=== PATIENT | female | born 1935 | race Caucasian/White ===

== ENCOUNTER 2016-10-20 07:52 | Observation (INO) ==
[2016-10-20] MEDS ORDERED: Ketorolac 30 MG/ML VIAL IM ONE (08:31)
--- NOTE | 2016-10-20 08:40 | Emergency Department Note ---
Disposition Clinical Impression: Unable to ambulate Ankle fracture Qualifiers: Encounter type: initial encounter Fracture type: closed Laterality: left Qualified Code(s): S82.892A - Other fracture of left lower leg, initial encounter for closed fracture Disposition: Admitted As Inpatient Condition: Good Referrals: NO,PCP [Primary Care Provider] - Forms: ED Satisfaction Letter Time of Disposition: 10:36 Lower Extremity Injury HPI - General Chief Complaint: ED Extremity Injury, Lower Stated Complaint: Fall left leg pain Time Seen by Provider: 10/20/16 08:22 Source: patient, family Mode of arrival: private vehicle Limitations: no limitations Nursing Notes Reviewed: Yes Vital Signs Reviewed: Yes - History of Present Illness Pt Subjective Complaint: hip injury, ankle injury Injury location: Left hip, Left ankle Onset (ago): Just [employer] Mechanism of Injury: fall Context: fall (Patient states that for several months she has been having trouble with weakness. Today she got out of bed to go to the bathroom and was feeling weak and wet now. She states that she felt like her ankle snapped when she went down. Since that time she has been unable to put weight on it.) Place: home Pain Severity: severe Improves with: immobilization Worsens with: weight bearing, movement, palpation Associated symptoms: Reports: unable to bear weight, snap/pop sensation - Related Data Home Medications Medication Instructions Recorded Confirmed Amlodipine [Norvasc] 10 mg PO DAILY 12/13/14 04/23/16 Atorvastatin [Lipitor] 40 mg PO DAILY 12/13/14 04/23/16 Citalopram Hydrobromide [Celexa] 20 mg PO DAILY 12/13/14 04/23/16 Glimepiride [Amaryl] 2 mg PO BID 12/13/14 04/23/16 Aspirin/Dipyridamole [Aggrenox 25 1 cap PO BID 04/23/16 04/23/16 mg-200 mg Capsule] Carvedilol [Coreg] 25 mg PO BID 04/23/16 04/23/16 Potassium Chloride [Klor-Con 10 meq PO BID 04/23/16 04/23/16 Sprinkle] Quetiapine Fumarate [Seroquel] 25 mg PO HS 04/23/16 04/23/16 Sertraline [Zoloft] 50 mg PO DAILY 04/23/16 04/23/16 Previous Rx's Medication Instructions Recorded OxyCODONE Immed Rel [Roxicodone 5 5 mg PO Q6HR PRN #20 tablet 04/26/16 MG] Allergies Allergy/AdvReac Type Severity Reaction Status Date / Time codeine Allergy Rash Verified 02/24/15 06:48 Penicillins Allergy Rash Verified 02/24/15 06:48 propoxyphene AdvReac Rash Verified 02/24/15 06:48 All systems ED: reviewed and negative except as stated. Cardiovascular: Denies: chest pain, palpitations Respiratory: Denies: cough, dyspnea Gastrointestinal: Denies: abdominal pain Musculoskeletal: Denies: back pain, neck pain Neurological: Denies: headache, numbness, paresthesias Hematological/Lymphatic: Denies: easy bleeding Past Medical History - Past Medical History Attestation: Yes The following information was validated with the patient. Source: patient, obtained from family, nursing notes reviewed Medical history: Reports: cancer, GERD, hyperlipidemia, hypertension Psychiatric history: Reports: anxiety, depression - Social History Smoking Status: Never smoker Smokeless Tobacco Status: No Alcohol use: Reports: none Drug use: Reports: none Physical Exam - General Limitations: no limitations General appearance: alert, in no apparent distress - Head Head exam: atraumatic, normocephalic, normal inspection - Eye Eye exam: Present: normal appearance, PERRL, EOMI. Absent: scleral icterus, conjunctival injection - ENT ENT exam: normal exam, normal oropharynx, normal external ear exam - Neck Neck exam: Present: normal inspection, full ROM. Absent: tenderness - Chest Chest inspection: Present: normal inspection, symmetric chest wall rise. Absent : tenderness - Respiratory Respiratory exam: Present: normal lung sounds bilaterally. Absent: respiratory distress, wheezes - Cardiovascular Cardiovascular exam: Present: regular rate, normal rhythm, normal heart sounds - Abdominal Exam Abdominal exam: Present: soft, Non-Tender, normal bowel sounds - Extremities Exam Extremities exam: Present: other (Patient complains of mild tenderness to palpation over the greater trochanter of her left hip. There is minimal discomfort on passive range of motion of that hip. There is minimal discomfort on axial loading of the hip. The thigh is nontender. The left knee is nontender. The left leg is nontender. There is no visible abnormalities to any of these areas. Left ankle shows evidence of swelling, particularly laterally. She has tenderness to palpation over the lateral malleolus. No tenderness to the proximal fibula. No foot tenderness. Distal neurologic and vascular examination to the toes and foot are normal. There is no other tenderness on examination of any of the other extremities.) - Back Exam Back exam: Present: full ROM. Absent: tenderness - Neurological Exam Neurological exam: Present: alert, oriented X3. Absent: motor sensory deficit - Psychiatric Psychiatric exam: Present: normal affect, normal mood - Skin Skin exam: Present: warm, dry, intact Course Course Narrative: Patient presents with a mechanical fall at home. She has some chronic worsening weakness at home which I think is consistent with her age and underlying medical conditions. She probably needs to be using a walker on a regular basis. At this time we need to determine if she has an extremity fracture. I see no indication of other injury or indication for further workup other than x-rays of this extremity. I will shoot pictures of her ankle and her hip. She was given pain medications. Disposition will be based on diagnostic result in reevaluation. - Reevaluation(s) Reevaluation #1: X-ray shows a normal hip but there is a fracture of the distal fibula. It is nondisplaced. We will put her in a posterior splint. We will get a walker and see if the patient is able to ambulate with a walker. If she is not able to do so safely, will need to send her to short-term rehabilitation. Time: 09:50 Reevaluation #2: Posterior splint is in place. Neurologic and vascular examination are fine postplacement. The splint is in good position. Try to give the patient out of bed and up with the walker but she does not have the strength to work the walker and keep one leg up. She is also still having a lot of pain. I spoke with a social media manager to try to get patient directly bedded into a rehabilitation facility but that cannot take place today. Therefore we will have to admit the patient to the hospitalist. I have called the hospitalist and discussed case with him and he has accepted the patient. Time: 10:35 - Consultations Consultation #1: Dr. Farrar, hospitalist - I discussed the case with the hospitalist. Patient is unable to use a walker and ambulate with her broken ankle. financial services specialist is not going to be a we get the patient placed to a rehabilitation facility today. Patient is to be admitted to the hospital. He has accepted her for admission and will get the appropriate physical therapy and occupational therapy consults that are needed to get the patient placed. Time: 10:34 Vital Signs Temperature 98.7 F 10/20/16 07:54 Pulse Rate 86 10/20/16 07:54 Respiratory Rate 18 10/20/16 07:54 Blood Pressure 184/82 10/20/16 07:54 O2 Sat by Pulse Oximetry 98 10/20/16 07:54 Temperature 98.7 F 10/20/16 07:54 Pulse Rate 86 10/20/16 07:54 Respiratory Rate 18 10/20/16 07:54 Blood Pressure 184/82 10/20/16 07:54 O2 Sat by Pulse Oximetry 98 10/20/16 07:54 Oxygen Delivery Oxygen Delivery Room Air Extremity Injury, Lower - Radiology Data Radiology results reviewed: Yes I reviewed the patient's radiology results.
[2016-10-20] MEDS ORDERED: Ondansetron ODT 4 MG TAB.RAPDIS SL ONE (10:56)
[2016-10-20] MEDS ORDERED: *HR* OxyCODONE/APAP 5/325 TABLET PO ONE (10:56)
[2016-10-20] MEDS ORDERED: Naloxone 0.4 MG/ML INJ IVP PRN (11:48)
[2016-10-20] MEDS ORDERED: *HR* Morphine 2 MG/ML SYRINGE IVP PRN (11:48)
[2016-10-20] MEDS ORDERED: Ondansetron 4 MG/2 ML VIAL IVP PRN (11:48)
[2016-10-20 12:25] LABS: INR 1.1; Prothrombin Time 11.5 Seconds (9.4-12.1)
[2016-10-20 12:38] LABS: Basophils % 0.3 %; Eosinophils % 0.1 %; Hematocrit 36.1 % (35.3-44.9); Hemoglobin 11.9 g/dL (11.5-15.4); Immature Granulocytes % 0.6 % (0-4); Lymphocytes # 0.7 K/mcL (0.6-4.6); Lymphocytes % 6.2 %; Mean Platelet Volume 9.4 fL (9.4-12.4); Monocytes # 0.5 K/mcL (0.0-1.3); Neutrophils # 9.5 K/mcL (1.6-8.9); Platelet Count 235 K/mcL (140-400); Red Cell Distribution Width 12.7 % (11.5-14.5); Segmented Neutrophils % 87.8 %
[2016-10-20 12:48] LABS: Calcium 9.8 mg/dL (8.6-10.8); Chol/HDL Ratio 4.3 (0-4.9); Magnesium 1.9 mg/dL (1.6-2.6); Potassium 4.2 mEq/L (3.5-4.5)
--- NOTE | 2016-10-20 12:51 | Internal Med History&Physical ---
<Cesar Solis - Last Filed: 10/20/16 13:20> Date of Encounter: 10/20/16 Time of Encounter: 12:10 Assessment and Plan (1) Closed left ankle fracture Current visit: Yes Status: Acute Patient presents with closed left ankle fracture from fall today. Patient states she was getting up to go to the bathroom and fell due to weakness. CT of the left ankle shows acute traumatic nondisplaced closed obliquely oriented fracture to the distal fibula extending to the region of the distal syndesmosis with associated soft tissue swelling and diffuse bone demineralization. Posterior splint placed. Social work consult ordered for placement of patient in rehabilitation facility. PT/OT consults ordered to assess patient for ambulation and home activities needs. Qualifiers: Encounter type: initial encounter Qualified Code(s): S82.892A - Other fracture of left lower leg, initial encounter for closed fracture (2) Acute pain of left hip Current visit: Yes Status: Acute Patient presents with acute pain of left hip related to fall this morning. CT of the left shows no acute fracture or dislocation. Will administer stair-step pain medication PRN. (3) Unable to ambulate Current visit: Yes Status: Acute Patient presents with inability to ambulate independently or bear weight on her left ankle due to fracture. Patient to be placed on falls precautions/up with assist/bed rest with bedside commode with assist only due to pain, weakness, and inability to bear weight. (4) Nausea Current visit: Yes Status: Acute Patient presents with acute nausea related to pain and fall today. She states she has been nauseous but denies urge to vomit. IV Zofran when necessary ordered. (5) Acute renal failure Current visit: Yes Status: Acute Patient presents with acute renal failure with current GFR of 33. Patient's GFR in August 2016 was 44 and in April 2016 >60. Will monitor I&O and daily weight, and use IV fluids judiciously. Follow-up labs ordered. Qualifiers: Acute renal failure type: unspecified Qualified Code(s): N17.9 - Acute kidney failure, unspecified (6) HTN (hypertension) Current visit: Yes Status: Chronic Patient presents with history of chronic hypertension. Will continue patient's losartan, Norvasc, and spironolactone. Monitor patient and vital signs. Qualifiers: Hypertension type: essential hypertension Qualified Code(s): I10 - Essential (primary) hypertension (7) HLD (hyperlipidemia) Current visit: Yes Status: Chronic Patient presents with history of chronic hyperlipidemia. Ordered lipid panel shows patient's triglycerides are 156, cholesterol is 179, LDL cholesterol is 106, VLDL cholesterol is 31, and HDL is 42. Will continue patient's Lipitor. Qualifiers: Hyperlipidemia type: pure hypercholesterolemia Qualified Code(s): E78.00 - Pure hypercholesterolemia, unspecified; E78.0 - Pure hypercholesterolemia (8) GERD (gastroesophageal reflux disease) Current visit: Yes Status: Chronic Patient presents with history of chronic GERD. Will administer IV Protonix 40 mg daily. IV Zofran ordered PRN for nausea. Qualifiers: Esophagitis presence: esophagitis presence not specified Qualified Code(s) : K21.9 - Gastro-esophageal reflux disease without esophagitis (9) DVT prophylaxis Current visit: Yes Status: Acute Patient to be placed on DVT prophylaxis due to admission protocol and current bed rest status. Heparin 5,000 units Q12 ordered. Internal Medicine - H&P: HPI Chief complaint: Hip/ankle injury from fall at home Admitted From: Emergency Dept Plans for Post Hospital Care: Home History of present illness: Mrs. Villalobos is a 81 year old female who presents from the ED with chief complaint of injury to her left hip and left ankle when she fell this morning while trying to ambulate to the bathroom. She states that she became weak and fell. She reports that she thought her ankle "snapped" when she fell. She is currently unable to bear weight on her ankle. She states that she is nauseous from the pain, but does not feel as though she will vomit. She also reports pain in the hip when it is palpated during examination. She reports no pain in her thigh or knee. She denies blacking out during the episode but is unsure of the event and how it all happened. She also denies hitting her head. Patient is currently alert and oriented x3 and her neuro examination is normal. She has equal strength in her UEs bilaterally. She states that she has some difficulty managing her walker at home. CT of the left hip shows no acute fracture. CT of the left ankle shows acute traumatic nondisplaced closed obliquely oriented fracture to the distal fibula extending to the region of the distal syndesmosis with associated soft tissue swelling and diffuse bone demineralization. Mrs. Villalobos is to be admitted as inpatient with orders for social work consult for rehabilitation placement patient, PT and OT consults to assess current ambulation and ability to function independently. Posterior splint placed. Patient is unable to place weight on her lower extremity so she will be placed as falls precautions/up with assist/bedrest with bedside commode with assist only due to continued weakness and inability to bear weight. Patient's home medications to be continued and pain medications will be administered PRN. Time spent with patient 30 minutes. Past Med Surg Social Fam HX - Past Medical History Source: patient Medical history: cancer (Lumpectomy on right breast d/t breast cancer. 18 lymph nodes removed.), GERD, hyperlipidemia, hypertension Psychiatric history: anxiety, depression - Past Surgical History Surgical History: orthopedic, other (Back surgery in April 2016), other ( Tonsillectomy, Lumpectomy on right breast) - Social History Smoking Status: Never smoker Smokeless Tobacco Status: No Alcohol use: none Drug use: none Current living situation: Home - Independent Activity Level: Independent ambulation, Uses cane/walker Recent Out of Country Travel Within the Last 8 Weeks: No Exposure or Possible Exposure to Illness During Travel: No - Family History Father Race: Family Member Ethnicity: Non- Living Status: Age at : 83 Cause of : PR Hx Family Cardiac Disorders: Yes (PR, HD) Hx Family Endocrine Disorder: Yes (DM) Mother Race: Family Member Ethnicity: Non- Living Status: Age at : 66 Cause of : Complications from DM Hx Family Endocrine Disorder: Yes (DM) Sister Race: Family Member Ethnicity: Non- Living Status: Still Living Hx Family Endocrine Disorder: Yes (DM) Internal Medicine - H&P: Meds Amlodipine [Norvasc] 10 mg PO DAILY 12/13/14 [History] Atorvastatin [Lipitor] 40 mg PO DAILY 12/13/14 [History] Citalopram Hydrobromide [Celexa] 20 mg PO DAILY 12/13/14 [History] Aspirin/Dipyridamole [Aggrenox 25 mg-200 mg Capsule] 1 cap PO BID 04/23/16 [ History] Carvedilol [Coreg] 25 mg PO BID 04/23/16 [History] Potassium Chloride [Klor-Con Sprinkle] 10 meq PO BID 04/23/16 [History] Quetiapine Fumarate [Seroquel] 25 mg PO HS 04/23/16 [History] Sertraline [Zoloft] 50 mg PO DAILY 04/23/16 [History] Ferrous Gluconate 324 mg PO DAILY 10/20/16 [History] Furosemide [Lasix] 20 mg PO BID 10/20/16 [History] Losartan Potassium [Cozaar] 50 mg PO DAILY 10/20/16 [History] Memantine HCl 10 mg PO DAILY 10/20/16 [History] Spironolactone [Aldactone] 25 mg PO BID 10/20/16 [History] clonazePAM [Klonopin] 1 mg PO HS 10/20/16 [History] Allergies codeine Allergy (Verified 02/24/15 06:48) Rash Penicillins Allergy (Verified 02/24/15 06:48) Rash propoxyphene Allergy (Verified 10/20/16 10:39) Rash All Systems PM: A 10-system review of systems was performed and is negative for pertinent findings except as documented above in the HPI. - Constitutional Constitutional: as per HPI, falls, weakness, no chills, no fever(s), no night sweats - EENT Eyes: no change in vision, no discharge, no pain, no photophobia Ears: no ear discharge, no ear pain, no tinnitus Nose, mouth and throat: no dysphagia, no nasal discharge, no neck pain, no sore throat - Breasts Breasts: as per HPI - Cardiovascular Cardiovascular ROS IM: no chest pain, no diaphoresis, no dyspnea, no lightheadedness, no palpitations, no syncope - Respiratory Respiratory: no cough, no dyspnea, no wheezing, no excessive phlegm production - Gastrointestinal Gastrointestinal: as per HPI, nausea, no abdominal pain, no diarrhea, no hematemesis, no hematochezia, no melena, no vomiting - Genitourinary Genitourinary: no change in urinary stream, no dysuria, no flank pain, no hematuria Menstruation: as per HPI, post menopausal - Musculoskeletal Musculoskeletal ROS IM: no numbness, no tingling - Integumentary Integumentary IM: no rash, no unusual bruising - Neurological Neurological ROS: as per HPI, frequent falls, weakness, no confusion, no convulsions, no focal weakness, no numbness, no tingling, no tremor(s) - Psychiatric Psychiatric: as per HPI - Endocrine Endocrine IM: as per HPI - Hematologic/Lymphatic Hematologic/Lymphatic: no easy bruising - Allergic/Immunologic Allergic/Immunologic: as per HPI - Constitutional Vitals: Temp Pulse Resp BP Pulse Ox 98.0 F 75 16 184/69 95 10/20/16 11:33 10/20/16 11:33 10/20/16 11:33 10/20/16 11:33 10/20/16 11:33 General appearance: Present: cooperative, A&O X 3, pleasant, no acute distress, answers questions appropriately - Head Head exam: Present: atraumatic, normocephalic - Eye Eye exam: Present: PERRL, conjuntiva pink, sclera anicteric Pupils: Present: PERRL - ENT ENT exam: Present: normal exam, normal external ear exam - Neck Neck exam general surgery: Present: normal inspection, supple, trachea midline. Absent: lymphadenopathy - Respiratory Respiratory exam: Present: CTAB. Absent: accessory muscle use, rales, rhonchi, wheezes - Cardiovascular Cardiovascular exam: Present: RRR, +S1, +S2. Absent: diastolic murmur, gallop, rubs, systolic murmur - GI/Abdominal GI/Abdominal exam: Present: normal bowel sounds, soft, no peritoneal signs. Absent: distended, tenderness - Rectal Rectal exam: Present: deferred - Additional comments: exam deferred. - Extremities Exam Extremities exam: Present: tenderness (Left ankle), warm, radial pulses palpable and symetrical. Absent: calf tenderness, cyanotic, pedal edema - Back Exam Back exam: Present: normal inspection - Neurological Exam Neurological exam: Present: CN II-XII intact, oriented X3, no focal deficits. Absent: pronater drift, facial droop, speech deficit - Psychiatric Psychiatric exam: Present: normal affect, normal mood - Skin Skin exam: Present: dry, intact Internal Med - H&P Results - Labs CBC & Chem 7: 10/20/16 12:08 10/20/16 12:08 - Diagnostic Studies Other Images Additional comments: Impressions Ankle X-Ray 10/20/16 08:31 IMPRESSION: Acute traumatic nondisplaced closed obliquely oriented fracture to the distal fibula extending to the region of the distal syndesmosis. Associated soft tissue swelling. Diffuse bone demineralization. D/ / 10/20/2016 08:54:08 Rene Arteaga MD / arpan Interpreting Provider: Rene Arteaga MD Hip X-Ray 10/20/16 08:31 IMPRESSION: No acute fracture. D/ / Tej Maria MD / Tej Maria MD Interpreting Provider: Tej Maria MD <Juan Myers - Last Filed: 10/20/16 14:20> Date of Encounter: 10/20/16 Internal Medicine - H&P: HPI History of present illness: Ms. Villalobos is a 81 year old female All Systems PM: A 10-system review of systems was performed and is negative for pertinent findings except as documented above in the HPI. - Constitutional Vitals: Temp Pulse Resp BP Pulse Ox 98.0 F 75 16 184/69 95 10/20/16 11:33 10/20/16 11:33 10/20/16 11:33 10/20/16 11:33 10/20/16 11:33 Internal Med - H&P Results - Labs CBC & Chem 7: 10/20/16 12:08 10/20/16 12:08 Labs: Short CBC 10/20/16 Range/Units 12:08 WBC 10.8 (4.3-11.1) K/mcL Hgb 11.9 (11.5-15.4) g/dL Hct 36.1 (35.3-44.9) % Plt Count 235 (140-400) K/mcL Neutrophils # 9.5 H (1.6-8.9) K/mcL BMP 10/20/16 12:08 Sodium 135 L Potassium 4.2 Chloride 109 Carbon Dioxide 20 BUN 26 H Creatinine 1.51 H Glucose 181 H Calcium 9.8 - Attending Attestation I have seen and examined the patient at around 13:30. I have discussed about the patient with Cesar Solis NP. I have reviewed the orders and note. Patient is a 81-year-old female with past history of hypertension, hyperlipidemia, anxiety, GERD and depression. She presents to the ED today after having sustained a fall. Patient has been having trouble with generalized weakness over the past few months, and it has been worsening gradually. This morning patient states she got her bed to go to the bathroom and had a mechanical fall. Brought to ED by family. Patient was complaining of left hip pain and left ankle pain. Initial evaluation revealed fracture of the left distal fibula. Rates the pain 7 out of 10. Worse with weightbearing, and patient is unable to put any weight on the left leg. No alleviating factors. Posterior splint of the left lower extremity has been applied in the ED. Patient will need physical therapy and at least short-term rehabilitation stay. Patient being admitted for generalized weakness, fall and left fibular fracture. On examination patient is awake and alert. Not in any distress. She is able to provide history. No family members at bedside. No other acute complaints. Heart rate 75, blood pressure 184/69, O2 94% on room air. Heart S1-S2 positive no murmurs or rubs, lungs bilateral good air entry no wheeze or crackle, abdomen soft nontender no masses or guarding. Extremities all pulses strong and regular left lower extremity in splint.
[2016-10-20] MEDS: 0.9 % Sodium Chloride 1,000 ML IVC SCH (13:18)
[2016-10-20] MEDS: Acetaminophen 325 MG TABLET PO PRN (16:57)
[2016-10-20] MEDS: *HR* Heparin 5,000 UNIT/ML VIAL SQ SCH (16:58)
[2016-10-20] MEDS ORDERED: D5% in Water 1,000 ML IVC PRN (17:42)
[2016-10-20] MEDS ORDERED: *HR* Dextrose 50 % in Water (Syg) 50 ML SYRINGE IVP PRN (17:42)
[2016-10-20] MEDS ORDERED: Dextrose Gel 15 GM PO PRN ×2 (17:42)
[2016-10-20] MEDS: traMADol 50 MG TABLET PO PRN (17:47)
[2016-10-20] MEDS: Insulin LISPRO 300 UNITS/3 ML VIAL SQ SCH ×2 (17:55→21:26)
[2016-10-20] MEDS ORDERED: Famotidine 20 MG TABLET PO SCH (21:00)
[2016-10-20] MEDS: Furosemide 20 MG TABLET PO SCH (21:18)
[2016-10-20] MEDS: Spironolactone 25 MG TABLET PO SCH (21:18)
[2016-10-20 23:34] LABS: Bilirubin,Urine Negative (Negative); Blood,Urine Negative (Negative); Clarity,Urine Clear (Clear); Color,Urine Yellow (Yellow); Glucose,Urine (UA) 250 mg/dL (Normal); Ketones,Urine Negative (Negative); Leukocyte Esterase,Urine Negative (Negative); Nitrite,Urine Negative (Negative); PH,Urine 5.5 pH Units (5.0-8.0); Protein,Urine >=300 mg/dL (Neg-Trace); Specific Gravity,Urine 1.024 (1.010-1.025); Urobilinogen,Urine Normal (Normal)
[2016-10-20 23:36] LABS: Bacteria,Urine None Seen per hpf (None-Few); Hyaline Casts,Urine None Seen per lpf (None-Few); RBC,Urine 0-3 per hpf (0-3); Squamous Epithelial Cell,Urine Many per lpf (None-Few)
[2016-10-21 04:28] LABS: Basophils % 0.2 %; Eosinophils % 0.2 %; Hematocrit 35.2 % (35.3-44.9); Hemoglobin 11.3 g/dL (11.5-15.4); Immature Granulocytes % 0.7 % (0-4); Lymphocytes # 0.5 K/mcL (0.6-4.6); Lymphocytes % 7.8 %; Mean Corpuscular HGB Conc 32.1 g/dL (31.6-35.5); Mean Corpuscular Hemoglobin 28.9 pg (28.0-33.3); Mean Platelet Volume 9.7 fL (9.4-12.4); Monocytes # 0.4 K/mcL (0.0-1.3); Monocytes % 5.9 %; Neutrophils # 5.2 K/mcL (1.6-8.9); Platelet Count 197 K/mcL (140-400); Red Blood Count 3.91 M/mcL (3.82-4.97); Red Cell Distribution Width 12.7 % (11.5-14.5); Segmented Neutrophils % 85.2 %
[2016-10-21 04:33] LABS: Prothrombin Time 10.7 Seconds (9.4-12.1)
[2016-10-21 04:36] LABS: Activated Partial Thrombo Time 29.2 Seconds (26.0-36.0)
[2016-10-21 04:43] LABS: Calcium 9.4 mg/dL (8.6-10.8); Potassium 4.2 mEq/L (3.5-4.5)
[2016-10-21] MEDS: *HR* Heparin 5,000 UNIT/ML VIAL SQ SCH ×2 (05:46→16:53)
[2016-10-21] MEDS: traMADol 50 MG TABLET PO PRN (06:37)
[2016-10-21] MEDS: Furosemide 20 MG TABLET PO SCH (08:07)
[2016-10-21] MEDS: Spironolactone 25 MG TABLET PO SCH (08:07)
[2016-10-21] MEDS: Pantoprazole 40 MG VIAL IVP SCH (08:08)
[2016-10-21] MEDS: amLODIPine 5 MG TABLET PO SCH (08:08)
[2016-10-21] MEDS: Insulin LISPRO 300 UNITS/3 ML VIAL SQ SCH ×4 (08:09→21:23)
[2016-10-21] MEDS: 0.9 % Sodium Chloride 1,000 ML IVC SCH (08:10)
--- NOTE | 2016-10-21 13:40 | Internal Med Progress Note ---
Date of Encounter: 10/21/16 Time of Encounter: 07:45 - Assessment and plan (1) Closed left ankle fracture Current Visit: Yes Status: Acute Assessment and plan: Reduced and in brace. Continue management with pain control, supportive care. Physical therapy. Awaiting placement to skilled rehabilitation as patient has decreased ambulatory capacity. Moderate risk for complications. Qualifiers: Encounter type: initial encounter Qualified Code(s): S82.892A - Other fracture of left lower leg, initial encounter for closed fracture (2) Acute pain of left hip Current Visit: Yes Status: Acute Assessment and plan: Improving. Continue pain control and physical therapy. (3) Acute renal failure Current Visit: Yes Status: Acute Assessment and plan: Renal function worsened since April. Could be related to her diabetes. Stable compared to yesterday. Hold Lasix and Aldactone for now. Patient may have chronic kidney disease stage II. Will get renal ultrasound and also check PTH. Monitor renal function closely. Qualifiers: Acute renal failure type: unspecified Qualified Code(s): N17.9 - Acute kidney failure, unspecified (4) DVT prophylaxis Current Visit: Yes Status: Acute (5) GERD (gastroesophageal reflux disease) Current Visit: Yes Status: Chronic Assessment and plan: Treating with pantoprazole. We will change to omeprazole by mouth. Qualifiers: Esophagitis presence: esophagitis presence not specified Qualified Code(s) : K21.9 - Gastro-esophageal reflux disease without esophagitis (6) HLD (hyperlipidemia) Current Visit: Yes Status: Chronic Assessment and plan: Continue atorvastatin Qualifiers: Hyperlipidemia type: mixed hyperlipidemia Qualified Code(s): E78.2 - Mixed hyperlipidemia (7) HTN (hypertension) Current Visit: Yes Status: Chronic Assessment and plan: Uncontrolled. We will add hydralazine intravenously as needed for SBP greater than 160. Currently on carvedilol 25 twice daily and losartan. We will also add hydralazine orally for long-term use. Qualifiers: Hypertension type: essential hypertension Qualified Code(s): I10 - Essential (primary) hypertension - Subjective Interval history: Patient complains of pain in her left leg at site of fracture. Somewhat controlled with tramadol but requesting something stronger. Denies any shortness of breath or palpitations. No fever or chills reported overnight. - Constitutional Vitals: Temp Pulse Resp BP Pulse Ox 97.6 F 66 15 192/54 94 07/09/17 12:29 10/21/16 12:29 10/21/16 12:29 10/21/16 12:29 10/21/16 12:29 General appearance: Present: cooperative, A&O X 3, pleasant, no acute distress, answers questions appropriately - Neck Neck exam general surgery: Present: supple, trachea midline. Absent: lymphadenopathy - Respiratory Respiratory exam: Present: CTAB. Absent: accessory muscle use, rales, rhonchi, wheezes - Cardiovascular Cardiovascular exam: Present: RRR, +S1, +S2. Absent: diastolic murmur, gallop, rubs, systolic murmur - Extremities Exam Extremities exam: Present: warm, radial pulses palpable and symetrical. Absent : calf tenderness, cyanotic, pedal edema Additional comments: Left leg currently in brace. Has good movement at her fingers. Internal Medicine: Result - Labs CBC & Chem 7: 10/21/16 04:02 10/21/16 04:02 Labs: Short CBC 10/21/16 Range/Units 04:02 WBC 6.1 (4.3-11.1) K/mcL Hgb 11.3 L (11.5-15.4) g/dL Hct 35.2 L (35.3-44.9) % Plt Count 197 (140-400) K/mcL Neutrophils # 5.2 (1.6-8.9) K/mcL BMP 10/21/16 04:02 Sodium 135 L Potassium 4.2 Chloride 109 Carbon Dioxide 20 BUN 22 H Creatinine 1.41 H Glucose 203 H Calcium 9.4 Urine 10/20/16 Range/Units 23:20 Urine Color Yellow (Yellow) Urine Clarity Clear (Clear) Urine pH 5.5 (5.0-8.0) pH Units Ur Specific [place] 1.024 (1.010-1.025) Urine Protein >=300 H (Neg-Trace) mg/dL Urine Glucose (UA) 250 H (Normal) mg/dL - ABG Interpretation ABG results: PT/INR, D-dimer PT 10.7 Seconds (9.4-12.1) 10/21/16 04:02 - Impressions Impressions Chest X-Ray 10/20/16 11:54 IMPRESSION: No acute abnormalities. Large hiatal hernia. D/ / 10/20/2016 14:48:42 Rene Arteaga MD / arpan Interpreting Provider: Rene Arteaga MD Consult Discharge Plan - Plan Referrals: Braden Cintron MD [Primary Care Provider] -
--- NOTE | 2016-10-21 14:29 | Physician Discharge Referral ---
ExtendedCare Referral Info Institutional Level of Care: Skilled - Diagnosis (1) Closed left ankle fracture Priority: Primary Status: Acute (2) Acute pain of left hip Priority: Secondary Status: Acute (3) Acute renal failure Priority: Secondary Status: Acute (4) DVT prophylaxis Priority: Secondary Status: Acute (5) GERD (gastroesophageal reflux disease) Priority: Secondary Status: Chronic (6) HLD (hyperlipidemia) Priority: Secondary Status: Chronic (7) HTN (hypertension) Priority: Secondary Status: Chronic Prognosis: Fair Aware of Diagnosis: Patient Aware of Prognosis: Patient - Transfer Medications Home Medications: Amlodipine [Norvasc] 10 mg PO DAILY 12/13/14 [History] Atorvastatin [Lipitor] 40 mg PO DAILY 12/13/14 [History] Citalopram Hydrobromide [Celexa] 20 mg PO DAILY 12/13/14 [History] Aspirin/Dipyridamole [Aggrenox 25 mg-200 mg Capsule] 1 cap PO BID 04/23/16 [ History] Carvedilol [Coreg] 25 mg PO BID 04/23/16 [History] Potassium Chloride [Klor-Con Sprinkle] 10 meq PO BID 04/23/16 [History] Quetiapine Fumarate [Seroquel] 25 mg PO HS 04/23/16 [History] Sertraline [Zoloft] 50 mg PO DAILY 04/23/16 [History] Ferrous Gluconate 324 mg PO DAILY 10/20/16 [History] Furosemide [Lasix] 20 mg PO BID 10/20/16 [History] Losartan Potassium [Cozaar] 50 mg PO DAILY 10/20/16 [History] Memantine HCl 10 mg PO DAILY 10/20/16 [History] Spironolactone [Aldactone] 25 mg PO BID 10/20/16 [History] clonazePAM [Klonopin] 1 mg PO HS 10/20/16 [History] Allergies/Adverse Reactions: Allergies codeine Allergy (Verified 02/24/15 06:48) Rash Penicillins Allergy (Verified 02/24/15 06:48) Rash propoxyphene Allergy (Verified 10/20/16 10:39) Rash - Respiratory Orders Smoking Cessation: Smoking cessation has been advised. For more information, call the [employer] Tobacco Quit Line at 9-990-QPGL-NOW. - Advance Directives Code Status: Full Code - Mobility Orders Other (per PT) - Rehabiliation Orders Rehab Potential: Fair Rehab Orders: Evaluation for Physical Therapy, Evaluation for Occupational Therapy CERTIFICATION: I certify that the transfer of the above named patient to an Extended Care Facility is necessary for the continuing treatment of the diagnosis listed. The above information is true and accurate reflection of patient's current condition. Confidential - Redisclosure prohibited without a patient's written consent.
[2016-10-21] MEDS: *HR* OxyCODONE/APAP 5/325 TABLET PO PRN (15:43)
[2016-10-22] MEDS ORDERED: *HR* Labetalol 20 MG/4 ML SYRINGE IVP ONE (00:20)
[2016-10-22 04:01] LABS: Basophils % 0.2 %; Eosinophils % 0.2 %; Hematocrit 31.4 % (35.3-44.9); Hemoglobin 10.2 g/dL (11.5-15.4); Immature Granulocytes % 1.3 % (0-4); Lymphocytes # 0.7 K/mcL (0.6-4.6); Lymphocytes % 12.9 %; Mean Corpuscular HGB Conc 32.5 g/dL (31.6-35.5); Mean Corpuscular Hemoglobin 29.3 pg (28.0-33.3); Mean Corpuscular Volume 90.2 fL (83.0-100.0); Mean Platelet Volume 9.8 fL (9.4-12.4); Monocytes # 0.3 K/mcL (0.0-1.3); Monocytes % 6.4 %; Neutrophils # 4.2 K/mcL (1.6-8.9); Platelet Count 197 K/mcL (140-400); Red Blood Count 3.48 M/mcL (3.82-4.97); Red Cell Distribution Width 13.2 % (11.5-14.5)
[2016-10-22 04:15] LABS: Calcium 9.1 mg/dL (8.6-10.8); Potassium 4.3 mEq/L (3.5-4.5)
[2016-10-22] MEDS: amLODIPine 5 MG TABLET PO SCH (05:06)
[2016-10-22] MEDS: *HR* Heparin 5,000 UNIT/ML VIAL SQ SCH ×2 (05:06→17:49)
[2016-10-22] MEDS: 0.9 % Sodium Chloride 1,000 ML IVC SCH ×3 (05:08→20:58)
[2016-10-22] MEDS ORDERED: *HR* Labetalol 20 MG/4 ML SYRINGE IVP PRN (07:37)
[2016-10-22] MEDS: Acetaminophen 325 MG TABLET PO PRN (08:09)
[2016-10-22] MEDS: Pantoprazole 40 MG VIAL IVP SCH (08:10)
[2016-10-22] MEDS: hydrALAZINE 25 MG TABLET PO SCH ×3 (08:13→17:49)
[2016-10-22] MEDS: Insulin LISPRO 300 UNITS/3 ML VIAL SQ SCH ×4 (08:24→20:54)
--- NOTE | 2016-10-22 12:04 | Electrocardiograph Report ---
[place] [id number] Test Date: 2016-10-20 Pat Name: Ria Villalobos Department: 113 Room: 3B13 Gender: F Exercise Rider: JOSÉ MIGUEL : 1935 Requested By: Juan Myers Order Number: [id number] Reading MD: Darian Pierre MD Measurements Intervals [place] Rate: 79 P: 42 MT: 188 QRS: -29 QRSD: 102 T: 28 QT: 384 QTc: 418 Interpretive Statements SINUS RHYTHM BORDERLINE LEFT AXIS DEVIATION VOLTAGE CRITERIA FOR LVH Electronically Signed On 10-22-2016 12:02:46 EDT by Darian Pierre MD
[2016-10-22] MEDS: traMADol 50 MG TABLET PO PRN ×2 (12:30→20:54)
--- NOTE | 2016-10-22 15:33 | Internal Med Progress Note ---
Date of Encounter: 10/22/16 Time of Encounter: 07:45 - Assessment and plan (1) Acute renal failure Current Visit: Yes Status: Suspected Assessment and plan: Acute renal failure most likely on chronic kidney disease. Ordered an ultrasound. PTH levels are elevated. Most likely has underlying chronic kidney disease related to diabetes and uncontrolled hypertension. Continue gentle hydration. Lasix, spironolactone and losartan have been stopped. Qualifiers: Acute renal failure type: with acute tubular necrosis Qualified Code(s): N17.0 - Acute kidney failure with tubular necrosis (2) Closed left ankle fracture Current Visit: Yes Status: Acute Assessment and plan: Continue physical therapy and supportive care. Placement to skilled rehabilitation when patient is medically stable. Anticoagulation with subcutaneous heparin at this time. Qualifiers: Encounter type: initial encounter Qualified Code(s): S82.892A - Other fracture of left lower leg, initial encounter for closed fracture (3) Acute pain of left hip Current Visit: Yes Status: Acute Assessment and plan: Related to fall. Pain is improving. No fracture on x-ray. (4) DVT prophylaxis Current Visit: Yes Status: Acute (5) GERD (gastroesophageal reflux disease) Current Visit: Yes Status: Chronic Assessment and plan: On subcutaneous heparin Qualifiers: Esophagitis presence: esophagitis presence not specified Qualified Code(s) : K21.9 - Gastro-esophageal reflux disease without esophagitis (6) HLD (hyperlipidemia) Current Visit: Yes Status: Chronic Assessment and plan: On atorvastatin Qualifiers: Hyperlipidemia type: mixed hyperlipidemia Qualified Code(s): E78.2 - Mixed hyperlipidemia (7) HTN (hypertension) Current Visit: Yes Status: Chronic Assessment and plan: Remains uncontrolled. Added hydralazine 3 times a day. Will monitor blood pressure closely. Continue IV medications as needed for systolic blood pressure greater than 160. High-risk for complications due to use of IV antihypertensive agents. Qualifiers: Hypertension type: essential hypertension Qualified Code(s): I10 - Essential (primary) hypertension - Subjective Interval history: Patient complains of nausea. Pain in left leg is much better. Patient's blood pressure has been elevated since yesterday. Has received multiple doses of IV medications to control it and this morning it seems to be better after she received labetalol intravenously. - Constitutional Vitals: Temp Pulse Resp BP Pulse Ox 98.2 F 75 15 151/63 94 10/22/16 15:25 10/22/16 15:25 10/22/16 15:25 10/22/16 15:25 10/22/16 15:25 General appearance: Present: cooperative, A&O X 3, pleasant, no acute distress, answers questions appropriately - Neck Neck exam general surgery: Present: supple, trachea midline. Absent: lymphadenopathy - Respiratory Respiratory exam: Present: CTAB. Absent: accessory muscle use, rales, rhonchi, wheezes - Cardiovascular Cardiovascular exam: Present: RRR, +S1, +S2. Absent: diastolic murmur, gallop, rubs, systolic murmur - Extremities Exam Extremities exam: Present: warm, radial pulses palpable and symetrical. Absent : calf tenderness, cyanotic, pedal edema Additional comments: Left lower extremity currently in [facility] Internal Medicine: Result - Labs CBC & Chem 7: 10/22/16 03:04 10/22/16 03:04 Labs: Short CBC 10/22/16 Range/Units 03:04 WBC 5.3 (4.3-11.1) K/mcL Hgb 10.2 L (11.5-15.4) g/dL Hct 31.4 L (35.3-44.9) % Plt Count 197 (140-400) K/mcL Neutrophils # 4.2 (1.6-8.9) K/mcL BMP 10/22/16 03:04 Sodium 134 L Potassium 4.3 Chloride 109 Carbon Dioxide 20 BUN 23 H Creatinine 1.71 H Glucose 177 H Calcium 9.1 - ABG Interpretation ABG results: PT/INR, D-dimer PT 10.7 Seconds (9.4-12.1) 10/21/16 04:02 - Impressions Impressions Retroperitoneum Ultrasound 10/22/16 14:00 IMPRESSION: Echogenic kidneys compatible with medical renal disease. No evidence of urinary obstruction D/ / Jose Juan White MD / Jose Juan White MD Interpreting Provider: Jose Juan White MD Consult Discharge Plan - Plan Referrals: Braden Cintron MD [Primary Care Provider] -
[2016-10-22] MEDS: *HR* OxyCODONE/APAP 5/325 TABLET PO PRN (22:14)
[2016-10-23] MEDS: hydrALAZINE 25 MG TABLET PO SCH ×5 (00:02→23:38)
[2016-10-23] MEDS: *HR* Heparin 5,000 UNIT/ML VIAL SQ SCH ×2 (05:56→17:51)
[2016-10-23] MEDS: 0.9 % Sodium Chloride 1,000 ML IVC SCH (05:57)
[2016-10-23] MEDS: *HR* OxyCODONE/APAP 5/325 TABLET PO PRN ×2 (06:22→21:23)
[2016-10-23] MEDS: Pantoprazole 40 MG VIAL IVP SCH (07:38)
[2016-10-23] MEDS: amLODIPine 5 MG TABLET PO SCH (07:38)
[2016-10-23] MEDS: Insulin LISPRO 300 UNITS/3 ML VIAL SQ SCH ×4 (07:40→21:24)
--- NOTE | 2016-10-23 08:40 | Internal Med Progress Note ---
<Rohit Duggan - Last Filed: 10/23/16 10:37> Date of Encounter: 10/23/16 Time of Encounter: 08:39 - Assessment and plan (1) Acute renal failure Current Visit: Yes Status: Acute Assessment and plan: Acute renal failure most likely on chronic kidney disease. PTH levels are elevated. Renal US shows medical disease of kidney. Most likely has underlying chronic kidney disease related to diabetes and uncontrolled hypertension. Continue gentle hydration. Lasix, spironolactone and losartan have been stopped. Potassium is gradually rising and was 4.7 today. We will discontinue PO Kcl Qualifiers: Acute renal failure type: with acute tubular necrosis Qualified Code(s): N17.0 - Acute kidney failure with tubular necrosis (2) Closed left ankle fracture Current Visit: Yes Status: Acute Assessment and plan: Continue physical therapy and supportive care. Placement to skilled rehabilitation when patient is medically stable. Anticoagulation with subcutaneous heparin at this time. Awaiting placement at SNF. Qualifiers: Encounter type: initial encounter Qualified Code(s): S82.892A - Other fracture of left lower leg, initial encounter for closed fracture (3) HTN (hypertension) Current Visit: Yes Status: Chronic Assessment and plan: Remains uncontrolled. Added hydralazine 3 times a day. Will monitor blood pressure closely. Continue IV medications as needed for systolic blood pressure greater than 160. High-risk for complications due to use of IV antihypertensive agents. Qualifiers: Hypertension type: essential hypertension Qualified Code(s): I10 - Essential (primary) hypertension (4) Acute pain of left hip Current Visit: Yes Status: Acute Assessment and plan: Related to fall. Pain is improving. No fracture on x-ray. (5) HLD (hyperlipidemia) Current Visit: Yes Status: Chronic Assessment and plan: On atorvastatin Qualifiers: Hyperlipidemia type: mixed hyperlipidemia Qualified Code(s): E78.2 - Mixed hyperlipidemia (6) GERD (gastroesophageal reflux disease) Current Visit: Yes Status: Chronic Assessment and plan: Protonix Qualifiers: Esophagitis presence: esophagitis presence not specified Qualified Code(s) : K21.9 - Gastro-esophageal reflux disease without esophagitis (7) DVT prophylaxis Current Visit: Yes Status: Acute Assessment and plan: sq heparin - Subjective Interval history: the patient seen and examined at bedside. She says she is feeling better, and had no acute complaints morning She says that her ankle is hurting, however its manageable at this time. She says that she's using the restroom an appropriate amount without trouble. - Constitutional Vitals: Temp Pulse Resp BP Pulse Ox 98.3 F 86 16 168/67 93 10/23/16 06:56 10/23/16 06:56 10/23/16 06:56 10/23/16 06:56 10/23/16 06:56 General appearance: Present: cooperative, A&O X 3, pleasant, no acute distress, answers questions appropriately - Head Head exam: Present: atraumatic, normocephalic - Eye Eye exam: Present: PERRL, conjuntiva pink, sclera anicteric Pupils: Present: PERRL - Neck Neck exam general surgery: Present: supple, trachea midline. Absent: lymphadenopathy - Respiratory Respiratory exam: Present: CTAB. Absent: accessory muscle use, rales, rhonchi, wheezes - Cardiovascular Cardiovascular exam: Present: RRR, +S1, +S2. Absent: diastolic murmur, gallop, rubs, systolic murmur - GI/Abdominal GI/Abdominal exam: Present: normal bowel sounds, soft, no peritoneal signs. Absent: distended, tenderness - Extremities Exam Extremities exam: Present: warm, radial pulses palpable and symetrical. Absent : calf tenderness, cyanotic, pedal edema Additional comments: There is a cast present on L ankle and foot. - Neurological Exam Neurological exam: Present: CN II-XII intact, oriented X3, no focal deficits. Absent: pronater drift, facial droop, speech deficit - Skin Skin exam: Present: dry, intact, warm Internal Medicine: Result - Labs CBC & Chem 7: 10/23/16 09:04 10/23/16 09:04 - ABG Interpretation ABG results: PT/INR, D-dimer PT 10.7 Seconds (9.4-12.1) 10/21/16 04:02 - Impressions Impressions Retroperitoneum Ultrasound 10/22/16 14:00 IMPRESSION: Echogenic kidneys compatible with medical renal disease. No evidence of urinary obstruction D/ / Jose Juan White MD / Jose Juan White MD Interpreting Provider: Jose Juan White MD Consult Discharge Plan - Plan Referrals: Braden Cintron MD [Primary Care Provider] - <Jimmy Bell - Last Filed: 10/23/16 13:34> Date of Encounter: 10/23/16 - Constitutional Vitals: Temp Pulse Resp BP Pulse Ox 98.1 F 73 16 165/62 92 10/23/16 11:41 10/23/16 11:41 10/23/16 11:41 10/23/16 11:41 10/23/16 11:41 Internal Medicine: Result - Labs CBC & Chem 7: 10/23/16 09:04 10/23/16 09:04 Labs: Short CBC 10/23/16 Range/Units 09:04 WBC 5.6 (4.3-11.1) K/mcL Hgb 10.4 L (11.5-15.4) g/dL Hct 32.5 L (35.3-44.9) % Plt Count 170 (140-400) K/mcL Neutrophils # 4.5 (1.6-8.9) K/mcL BMP 10/23/16 09:04 Sodium 133 L Potassium 4.7 H Chloride 112 H Carbon Dioxide 18 L BUN 28 H Creatinine 1.70 H Glucose 189 H Calcium 8.8 - ABG Interpretation ABG results: PT/INR, D-dimer PT 10.7 Seconds (9.4-12.1) 10/21/16 04:02 - Impressions Impressions Retroperitoneum Ultrasound 10/22/16 14:00 IMPRESSION: Echogenic kidneys compatible with medical renal disease. No evidence of urinary obstruction D/ / Jose Juan White MD / Jose Juan White MD Interpreting Provider: Jose Juan White MD - Attending Attestation Acute renal failure, unlikely prerenal Stop IV fluids, may start bicarbonate Send urine tests, nephrology consult Continue holding spironolactone, losartan and Lasix I examined this patient and my medical decision-making was reviewed with the ORNAMENTAL PLASTERER HELPER/PA/Advanced Practice Nurse/Resident Physician. I agree with the documented findings, disposition and treatment plan as described except to the extent set forth below.
[2016-10-23 09:22] LABS: Basophils % 0.4 %; Eosinophils % 0.2 %; Hematocrit 32.5 % (35.3-44.9); Hemoglobin 10.4 g/dL (11.5-15.4); Immature Granulocytes % 2.3 % (0-4); Lymphocytes # 0.7 K/mcL (0.6-4.6); Lymphocytes % 11.5 %; Mean Corpuscular Hemoglobin 29.3 pg (28.0-33.3); Mean Corpuscular Volume 91.5 fL (83.0-100.0); Mean Platelet Volume 9.7 fL (9.4-12.4); Monocytes # 0.3 K/mcL (0.0-1.3); Neutrophils # 4.5 K/mcL (1.6-8.9); Platelet Count 170 K/mcL (140-400); Red Blood Count 3.55 M/mcL (3.82-4.97); Red Cell Distribution Width 13.6 % (11.5-14.5); Segmented Neutrophils % 79.6 %
[2016-10-23 09:29] LABS: Calcium 8.8 mg/dL (8.6-10.8); Potassium 4.7 mEq/L (3.5-4.5)
[2016-10-23] MEDS: traMADol 50 MG TABLET PO PRN (13:50)
[2016-10-23 14:58] LABS: Protein/Creatinine Ratio,Urine 3.04 mg/mg (0-0.20)
[2016-10-24 04:45] LABS: Hematocrit 30.9 % (35.3-44.9); Hemoglobin 9.6 g/dL (11.5-15.4); Mean Corpuscular HGB Conc 31.1 g/dL (31.6-35.5); Mean Corpuscular Hemoglobin 28.5 pg (28.0-33.3); Mean Corpuscular Volume 91.7 fL (83.0-100.0); Mean Platelet Volume 9.5 fL (9.4-12.4); Platelet Count 173 K/mcL (140-400); Red Blood Count 3.37 M/mcL (3.82-4.97); Red Cell Distribution Width 13.7 % (11.5-14.5)
[2016-10-24 05:04] LABS: Calcium 9.2 mg/dL (8.6-10.8); Potassium 4.8 mEq/L (3.5-4.5)
[2016-10-24] MEDS: hydrALAZINE 25 MG TABLET PO SCH ×4 (06:15→23:47)
[2016-10-24] MEDS: *HR* Heparin 5,000 UNIT/ML VIAL SQ SCH ×2 (06:16→17:51)
[2016-10-24] MEDS: amLODIPine 5 MG TABLET PO SCH (08:29)
[2016-10-24] MEDS: Pantoprazole 40 MG VIAL IVP SCH (08:30)
[2016-10-24] MEDS: Insulin LISPRO 300 UNITS/3 ML VIAL SQ SCH ×4 (08:31→21:09)
--- NOTE | 2016-10-24 09:32 | Nephrology Consult Note ---
Date of Encounter: 10/29/16 Time of Encounter: 09:29 Assessment and Plan (1) Acute renal failure Status: Acute Patient is a clinical picture of worsening renal function since August 2016. Renal ultrasound actually suggests some chronic findings could be consistent with chronic kidney disease. She has had significant proteinuria on a urinalysis dipstick both back in June and again during this hospital stay. It is possible she may have some underlying glomerular disease that is contributing to her progressive renal insufficiency. I believe at this point we should start an evaluation for possible glomerular disease. I will place appropriate orders. She manned up requiring a renal biopsy at some point for more definitive diagnosis. Qualifiers: Acute renal failure type: unspecified Qualified Code(s): N17.9 - Acute kidney failure, unspecified (2) HTN (hypertension) Status: Chronic Qualifiers: Hypertension type: essential hypertension Qualified Code(s): I10 - Essential (primary) hypertension History of Present Illness - History of Present Illness This is an 81-year-old female who complains of weakness. She fell at home and fractured her left ankle. On admission she was noted to have an elevation in her serum creatinine. Patient says that she has been feeling weak at home for an unspecified period of time. She also reports having some lower extremity swelling also for some unspecified period of time. She denies any previous history of renal disease. Review of previous labs show that in April her creatinine was normal at 0.9. In August it was slightly higher at 1.18 and on October 20 it was up to 1.51. Urinalysis during this admission as well as back in June showed greater than 300 mg/dL of protein. Proteinuria and hematuria. She has no difficulty emptying her bladder. To the best of her recollection she has not been using any anti-inflammatory medications. She reports she may of been started on a new medication as an outpatient but she is not sure. Renal ultrasound that was done during this hospital stay shows no evidence of hydronephrosis. However does show increased renal echogenicity consistent with chronic renal disease. Past Med Surg Social Fam HX - Past Medical History Medical history: cancer (Lumpectomy on right breast d/t breast cancer. 18 lymph nodes removed.), GERD, hyperlipidemia, hypertension Psychiatric history: anxiety, depression - Past Surgical History Surgical History: orthopedic, other (Back surgery in April 2016), other ( Tonsillectomy, Lumpectomy on right breast) - Social History Smoking Status: Never smoker Smokeless Tobacco Status: No Alcohol use: none Drug use: none - Family History Father Race: Family Member Ethnicity: Non- Living Status: Age at : 83 Cause of : OK Hx Family Cardiac Disorders: Yes (OK, HD) Hx Family Endocrine Disorder: Yes (DM) Mother Race: Family Member Ethnicity: Non- Living Status: Age at : 66 Cause of : Complications from DM Hx Family Endocrine Disorder: Yes (DM) Sister Race: Family Member Ethnicity: Non- Living Status: Still Living Hx Family Endocrine Disorder: Yes (DM) Medications and Allergies Atorvastatin [Lipitor] 40 mg PO DAILY 12/13/14 [History] Citalopram Hydrobromide [Celexa] 20 mg PO DAILY 12/13/14 [History] Aspirin/Dipyridamole [Aggrenox 25 mg-200 mg Capsule] 1 cap PO BID 04/23/16 [ History] Carvedilol [Coreg] 25 mg PO BID 04/23/16 [History] Potassium Chloride [Klor-Con Sprinkle] 10 meq PO BID 04/23/16 [History] Quetiapine Fumarate [Seroquel] 25 mg PO HS 04/23/16 [History] Sertraline [Zoloft] 50 mg PO DAILY 04/23/16 [History] Furosemide [Lasix] 20 mg PO BID 10/20/16 [History] Memantine HCl 10 mg PO DAILY 10/20/16 [History] Spironolactone [Aldactone] 25 mg PO BID 10/20/16 [History] clonazePAM [Klonopin] 1 mg PO HS 10/20/16 [History] Docusate [Colace] 100 mg PO BID #0 10/26/16 [Rx] Ferrous Gluconate 324 mg PO DAILY #30 10/26/16 [Rx] Glucagon, Human Recombinant [Glucagen] 1 mg IM ONCE PRN vial 10/26/16 [Rx] Insulin LISPRO [HumaLOG] 0 units SQ HS vial 10/26/16 [Rx] Insulin LISPRO [HumaLOG] 0 units SQ TIDAC vial 10/26/16 [Rx] Omeprazole [PriLOSEC] 40 mg PO DAILY@0630 10/26/16 [Rx] Ondansetron [Zofran] 4 mg IVP Q8HR PRN vial 10/26/16 [Rx] amLODIPine [Norvasc] 10 mg PO DAILY #60 tab 10/26/16 [Rx] hydrALAZINE [HydrALAZINE] 20 mg IVP Q6HR PRN vial 10/26/16 [Rx] hydrALAZINE [HydrALAZINE] 50 mg PO Q6HR tab 10/26/16 [Rx] Allergies codeine Allergy (Verified 02/24/15 06:48) Rash Penicillins Allergy (Verified 02/24/15 06:48) Rash propoxyphene Allergy (Verified 10/20/16 10:39) Rash Review of Systems Constitutional: as per HPI, weakness Nose, mouth and throat: no dizziness, no headache(s) Cardiovascular: as per HPI, edema Respiratory: no cough, no dyspnea Gastrointestinal: no abdominal pain, no change in bowel habits Musculoskeletal: no muscle weakness, no numbness Musculoskeletal: left: ankle pain Integumentary: as per HPI Neurological: weakness Psychiatric: no depression, no difficulty concentrating Endocrine: as per HPI Hematologic/Lymphatic: no easy bruising, no lymphadenopathy Exam - Vital Signs Vital signs: Initial Vital Signs Temp Pulse Resp BP Pulse Ox 98.7 F 86 18 184/82 98 10/20/16 07:54 10/20/16 07:54 10/20/16 07:54 10/20/16 07:54 10/20/16 07:54 Vital Signs - Last 8 Hours Temp Pulse Resp BP Pulse Ox 10/24/16 08:30 102 175/73 10/24/16 07:06 98.2 F 90 20 175/70 92 10/24/16 03:01 98.7 F 79 20 148/61 92 Intake and Output 10/23/16 10/24/16 10/24/16 23:59 07:59 15:59 Intake Total 240 / 240 Output Total 200 / 200 300 / 300 Balance 40 / 40 -300 / -300 Intake: Oral 240 / 240 Output: Urine 200 / 200 300 / 300 Other: Meal Dinner Percent of Meal Consumed 75% Weight 63.14 kg Blood Glucose* 296 192 Patient Weight 10/24/16 23:59 Weight 63.14 kg - General Appearance Exam: The patient is sitting in a chair eating breakfast. She appears alert and oriented. She is in no acute distress. Neck is supple. Lungs clear to auscultation. Heart regular rate and rhythm with a 2/6 systolic ejection murmur. Abdomen is soft. Bowel sounds are present. No masses organomegaly or tenderness. There is no peripheral edema of the right lower extremity. The left ankle is in a soft cast. Results - Lab Results 10/26/16 04:26 10/26/16 04:26 Most recent lab results Calcium 9.2 mg/dL (8.6-10.8) 10/24/16 04:23 Magnesium 1.9 mg/dL (1.6-2.6) 10/20/16 12:08 Urine Creatinine 113 mg/dL 10/23/16 13:47 Urine Sodium 41.0 mEq/L 10/23/16 13:47 Urine Total Protein 343 mg/dL (1-14) H 10/23/16 13:47 Consult Discharge Plan - Plan Additional Instructions: Follow up with Nephrology in 2-3 weeks. Referrals: Feli Lopez CNP [Advanced Practice Nurse] - Braden Cintron MD [Primary Care Provider] - Prescriptions: amLODIPine [Norvasc] 10 mg PO DAILY #60 tab Ferrous Gluconate 324 mg PO DAILY #30
--- NOTE | 2016-10-24 09:46 | Internal Med Progress Note ---
<Rohit Duggan - Last Filed: 10/24/16 12:13> Date of Encounter: 10/24/16 Time of Encounter: 09:44 - Assessment and plan (1) Acute renal failure Current Visit: Yes Status: Acute Assessment and plan: -Nephro on board, looking at workup for glomerular disease - Hold Lasix, spironolactone, losartan -SCr 1.84 today -We will follow nephro recs Qualifiers: Acute renal failure type: unspecified Qualified Code(s): N17.9 - Acute kidney failure, unspecified (2) Closed left ankle fracture Current Visit: Yes Status: Acute Assessment and plan: Continue physical therapy and supportive care. Placement to skilled rehabilitation when patient is medically stable. Anticoagulation with subcutaneous heparin at this time. Awaiting placement at SNF. Qualifiers: Encounter type: initial encounter Qualified Code(s): S82.892A - Other fracture of left lower leg, initial encounter for closed fracture (3) HTN (hypertension) Current Visit: Yes Status: Chronic Assessment and plan: Remains uncontrolled. Added hydralazine 3 times a day. Will monitor blood pressure closely. Continue IV medications as needed for systolic blood pressure greater than 160. High-risk for complications due to use of IV antihypertensive agents. Qualifiers: Hypertension type: essential hypertension Qualified Code(s): I10 - Essential (primary) hypertension (4) Acute pain of left hip Current Visit: Yes Status: Acute Assessment and plan: Related to fall. Pain is improving. No fracture on x-ray. (5) HLD (hyperlipidemia) Current Visit: Yes Status: Chronic Assessment and plan: On atorvastatin Qualifiers: Hyperlipidemia type: mixed hyperlipidemia Qualified Code(s): E78.2 - Mixed hyperlipidemia (6) GERD (gastroesophageal reflux disease) Current Visit: Yes Status: Chronic Assessment and plan: Protonix Qualifiers: Esophagitis presence: esophagitis presence not specified Qualified Code(s) : K21.9 - Gastro-esophageal reflux disease without esophagitis (7) Anemia Current Visit: Yes Status: Acute Assessment and plan: -Hgb down to 9.6 today. Nurse reports black stool -Will check stool for blood and will get GI/Surg consult Qualifiers: Anemia type: iron deficiency Iron deficiency anemia type: chronic blood loss Qualified Code(s): D50.0 - Iron deficiency anemia secondary to blood loss (chronic) (8) DVT prophylaxis Current Visit: Yes Status: Acute Assessment and plan: sq heparin - Subjective Interval history: the patient seen and examined at bedside. She says she is feeling better, and had no acute complaints morning She says that her ankle is hurting, however its manageable at this time. She says that she's using the restroom an appropriate amount without trouble. - Constitutional Vitals: Temp Pulse Resp BP Pulse Ox 98.2 F 102 20 175/73 92 10/24/16 07:06 10/24/16 08:30 10/24/16 07:06 10/24/16 08:30 10/24/16 07:06 General appearance: Present: cooperative, A&O X 3, pleasant, no acute distress, answers questions appropriately Internal Medicine: Result - Labs CBC & Chem 7: 10/24/16 04:23 10/24/16 04:23 Labs: Short CBC 10/24/16 Range/Units 04:23 WBC 4.8 (4.3-11.1) K/mcL Hgb 9.6 L (11.5-15.4) g/dL Hct 30.9 L (35.3-44.9) % Plt Count 173 (140-400) K/mcL BMP 10/24/16 04:23 Sodium 133 L Potassium 4.8 H Chloride 111 H Carbon Dioxide 19 BUN 36 H Creatinine 1.84 H Glucose 179 H Calcium 9.2 - ABG Interpretation ABG results: PT/INR, D-dimer PT 10.7 Seconds (9.4-12.1) 10/21/16 04:02 Consult Discharge Plan - Plan Referrals: Braden Cintron MD [Primary Care Provider] - <Jimmy Bell - Last Filed: 10/24/16 12:44> Date of Encounter: 10/24/16 - Constitutional Vitals: Temp Pulse Resp BP Pulse Ox 98.1 F 75 18 137/69 93 10/24/16 11:25 10/24/16 11:25 10/24/16 11:25 10/24/16 11:25 10/24/16 11:25 Internal Medicine: Result - Labs CBC & Chem 7: 10/24/16 04:23 10/24/16 04:23 Labs: Short CBC 10/24/16 Range/Units 04:23 WBC 4.8 (4.3-11.1) K/mcL Hgb 9.6 L (11.5-15.4) g/dL Hct 30.9 L (35.3-44.9) % Plt Count 173 (140-400) K/mcL BMP 10/24/16 04:23 Sodium 133 L Potassium 4.8 H Chloride 111 H Carbon Dioxide 19 BUN 36 H Creatinine 1.84 H Glucose 179 H Calcium 9.2 - ABG Interpretation ABG results: PT/INR, D-dimer PT 10.7 Seconds (9.4-12.1) 10/21/16 04:02 - Attending Attestation Acute renal failure of unclear etiology, not improving. Nephrology recommendations appreciated Acute blood loss anemia possibly secondary to GI bleed upper versus lower. Hemoglobin has dropped from 11.9 down to 9.6. Send a Hemoccult and call surgery consult for endoscopy I examined this patient and my medical decision-making was reviewed with the DRESSMAKING TEACHER/PA/Advanced Practice Nurse/Resident Physician. I agree with the documented findings, disposition and treatment plan as described except to the extent set forth below.
[2016-10-24 12:19] LABS: Hepatitis B Surface Antibody 0.19 mIU/mL; Hepatitis B Surface Antigen Nonreactive (Nonreactive); Hepatitis C Virus Antibody Nonreactive (Nonreactive)
[2016-10-24] MEDS: traMADol 50 MG TABLET PO PRN (13:35)
[2016-10-25] MEDS: *HR* OxyCODONE/APAP 5/325 TABLET PO PRN ×2 (06:13→21:28)
[2016-10-25] MEDS: *HR* Heparin 5,000 UNIT/ML VIAL SQ SCH ×2 (06:13→17:16)
[2016-10-25] MEDS: hydrALAZINE 25 MG TABLET PO SCH ×3 (06:13→17:16)
[2016-10-25 07:07] LABS: Basophils % 0.3 %; Eosinophils % 0.5 %; Hematocrit 31.5 % (35.3-44.9); Lymphocytes # 0.6 K/mcL (0.6-4.6); Lymphocytes % 10.1 %; Mean Corpuscular HGB Conc 31.7 g/dL (31.6-35.5); Mean Corpuscular Hemoglobin 29.1 pg (28.0-33.3); Mean Corpuscular Volume 91.6 fL (83.0-100.0); Mean Platelet Volume 9.4 fL (9.4-12.4); Monocytes # 0.4 K/mcL (0.0-1.3); Monocytes % 5.9 %; Neutrophils # 4.9 K/mcL (1.6-8.9); Platelet Count 152 K/mcL (140-400); Red Blood Count 3.44 M/mcL (3.82-4.97); Red Cell Distribution Width 13.8 % (11.5-14.5); Segmented Neutrophils % 82.2 %
[2016-10-25 07:20] LABS: Calcium 8.6 mg/dL (8.6-10.8); Potassium 4.8 mEq/L (3.5-4.5)
[2016-10-25] MEDS: amLODIPine 5 MG TABLET PO SCH (07:50)
[2016-10-25] MEDS: Insulin LISPRO 300 UNITS/3 ML VIAL SQ SCH ×4 (07:50→17:17)
[2016-10-25] MEDS: Pantoprazole 40 MG VIAL IVP SCH (07:50)
--- NOTE | 2016-10-25 08:09 | Internal Med Progress Note ---
<Rohit Duggan - Last Filed: 10/25/16 11:34> Date of Encounter: 10/25/16 Time of Encounter: 08:08 - Assessment and plan (1) Acute renal failure Current Visit: Yes Status: Acute Assessment and plan: -Acute renal failure of unclear etiology, not improving. 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 -Nephro on board, looking at workup for glomerular disease - Hold Lasix, spironolactone, losartan -SCr 1.86 today -Gentle hydration at 60ml/hr NS -We will follow nephro recs Qualifiers: Acute renal failure type: unspecified Qualified Code(s): N17.9 - Acute kidney failure, unspecified (2) Closed left ankle fracture Current Visit: Yes Status: Acute Assessment and plan: Continue physical therapy and supportive care. Placement to skilled rehabilitation when patient is medically stable. Anticoagulation with subcutaneous heparin at this time. Awaiting placement at SNF. Qualifiers: Encounter type: initial encounter Qualified Code(s): S82.892A - Other fracture of left lower leg, initial encounter for closed fracture (3) HTN (hypertension) Current Visit: Yes Status: Chronic Assessment and plan: Remains uncontrolled. Added hydralazine 3 times a day. Will monitor blood pressure closely. Continue IV medications as needed for systolic blood pressure greater than 160. High-risk for complications due to use of IV antihypertensive agents. Qualifiers: Hypertension type: essential hypertension Qualified Code(s): I10 - Essential (primary) hypertension (4) Acute pain of left hip Current Visit: Yes Status: Acute Assessment and plan: Related to fall. Pain is improving. No fracture on x-ray. (5) HLD (hyperlipidemia) Current Visit: Yes Status: Chronic Assessment and plan: On atorvastatin Qualifiers: Hyperlipidemia type: mixed hyperlipidemia Qualified Code(s): E78.2 - Mixed hyperlipidemia (6) GERD (gastroesophageal reflux disease) Current Visit: Yes Status: Chronic Assessment and plan: Omeprazole 40mg PO daily Qualifiers: Esophagitis presence: esophagitis presence not specified Qualified Code(s) : K21.9 - Gastro-esophageal reflux disease without esophagitis (7) Anemia Current Visit: Yes Status: Acute Assessment and plan: -Hgb down to 9.6 today. Nurse reports black stool -Will check stool for blood and will get GI/Surg consult Qualifiers: Anemia type: iron deficiency Iron deficiency anemia type: chronic blood loss Qualified Code(s): D50.0 - Iron deficiency anemia secondary to blood loss (chronic) (8) Diabetes mellitus Current Visit: Yes Status: Acute Assessment and plan: -Glucose remains high, between 200-300 generally. 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 She appears to be in NAD, however has a depressed mood and flat affect. She has no acute complaints at this time, and says that she feels okay. - Constitutional Vitals: Temp Pulse Resp BP Pulse Ox 98.2 F 96 16 157/66 92 10/25/16 07:15 10/25/16 07:15 10/25/16 07:15 10/25/16 07:15 10/25/16 07:15 General appearance: Present: cooperative, pleasant, no acute distress, answers questions appropriately - Head Head exam: Present: atraumatic, normocephalic - Eye Eye exam: Present: PERRL, conjuntiva pink, sclera anicteric Pupils: Present: PERRL - Neck Neck exam general surgery: Present: supple, trachea midline. Absent: lymphadenopathy - Respiratory Respiratory exam: Present: CTAB. Absent: accessory muscle use, rales, rhonchi, wheezes - Cardiovascular Cardiovascular exam: Present: RRR, +S1, +S2, systolic murmur. Absent: diastolic murmur, gallop, rubs Additional comments: 2/6 systolic murmur heard most clearly at the right sternal border. - GI/Abdominal GI/Abdominal exam: Present: normal bowel sounds, soft, no peritoneal signs. Absent: distended, tenderness - Extremities Exam Extremities exam: Present: warm, radial pulses palpable and symetrical. Absent : calf tenderness, cyanotic, pedal edema - Neurological Exam Neurological exam: Present: CN II-XII intact, oriented X3, no focal deficits. Absent: pronater drift, facial droop, speech deficit - Psychiatric Psychiatric exam: Present: flat affect - Skin Skin exam: Present: dry, intact Internal Medicine: Result - Labs CBC & Chem 7: 10/25/16 06:49 10/25/16 06:49 Labs: Short CBC 10/25/16 Range/Units 06:49 WBC 5.9 (4.3-11.1) K/mcL Hgb 10.0 L (11.5-15.4) g/dL Hct 31.5 L (35.3-44.9) % Plt Count 152 (140-400) K/mcL Neutrophils # 4.9 (1.6-8.9) K/mcL BMP 10/25/16 06:49 Sodium 131 L Potassium 4.8 H Chloride 110 H Carbon Dioxide 19 BUN 41 H Creatinine 1.86 H Glucose 199 H Calcium 8.6 - ABG Interpretation ABG results: PT/INR, D-dimer PT 10.7 Seconds (9.4-12.1) 10/21/16 04:02 Consult Discharge Plan - Plan Referrals: Braden Cintron MD [Primary Care Provider] - <Jimmy Bell H - Last Filed: 10/25/16 12:47> Date of Encounter: 10/25/16 - Constitutional Vitals: Temp Pulse Resp BP Pulse Ox 98.1 F 70 17 150/71 95 10/25/16 11:00 10/25/16 11:00 10/25/16 11:00 10/25/16 11:00 10/25/16 11:00 Internal Medicine: Result - Labs CBC & Chem 7: 10/25/16 06:49 10/25/16 06:49 Labs: Short CBC 10/25/16 Range/Units 06:49 WBC 5.9 (4.3-11.1) K/mcL Hgb 10.0 L (11.5-15.4) g/dL Hct 31.5 L (35.3-44.9) % Plt Count 152 (140-400) K/mcL Neutrophils # 4.9 (1.6-8.9) K/mcL [facility] 10/25/16 06:49 Sodium 131 L Potassium 4.8 H Chloride 110 H Carbon Dioxide 19 BUN 41 H Creatinine 1.86 H Glucose 199 H Calcium 8.6 - ABG Interpretation ABG results: PT/INR, D-dimer PT 10.7 Seconds (9.4-12.1) 10/21/16 04:02 - Attending Attestation Acute renal failure of unclear etiology, not improving. Nephrology recommendations appreciated Acute blood loss anemia unlikely, hemoglobin is stable Continue PPI Send a Hemoccult , may call surgery for endoscopy if there is evidence of GI bleed I examined this patient and my medical decision-making was reviewed with the CORN SHUCKER/PA/Advanced Practice Nurse/Resident Physician. I agree with the documented findings, disposition and treatment plan as described except to the extent set forth below.
[2016-10-25] MEDS ORDERED: Insulin LISPRO 300 UNITS/3 ML VIAL SQ SCH (08:12)
--- NOTE | 2016-10-25 08:44 | Nephrology Progress Note ---
Date of Encounter: 10/25/16 Time of Encounter: 08:30 - Assessment and Plan (1) Acute renal failure Current Visit: Yes Status: Acute Creat may have plateued 1.86. Spot urine protein suggests nephrotic range proteinuria, awaiting 24 urine protein. 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 If renal fct remains stable can afford to hold off on renal biopsy, if worsens will most likely biopsy tomorrow. Work up in progress. Qualifiers: Acute renal failure type: unspecified Qualified Code(s): N17.9 - Acute kidney failure, unspecified Subjective Interval history: Sitting up in chair. Eating breakfast. Pleasantly confused. States ankle pain under control. No new complaints. Objective - Vital Signs Vital signs: Vital Signs Temp Pulse Resp BP Pulse Ox 10/25/16 07:15 98.2 F 96 16 157/66 92 10/24/16 23:26 98.5 F 74 18 157/63 95 10/24/16 20:25 99.1 F 74 18 154/64 95 10/24/16 15:35 98.1 F 72 20 153/52 94 10/24/16 11:25 98.1 F 75 18 137/69 93 10/24/16 10:09 76 124/62 Intake and Output 10/24/16 10/25/16 10/25/16 23:59 07:59 15:59 Output Total 450 / 450 200 / 200 Balance -450 / -450 -200 / -200 Output: Urine 450 / 450 200 / 200 Other: Blood Glucose* 256 214 - General Appearance General appearance: Present: well-developed, well-nourished, appears started age EENT: Present: mucous membranes moist Neck: Present: no JVD Respiratory: Present: clear Additional Comments: diminished throughout Cardiology: Present: no edema, regular rate, regular rhythm Additional Comments: 2/6 systolic murmur Gastrointestinal: Present: normoactive bowel sounds, no tenderness Integumentary: Present: warm and dry Psychiatric: Present: mood/affect appropriate, cooperative - Lab 10/25/16 06:49 10/25/16 06:49 Most recent lab results Calcium 8.6 mg/dL (8.6-10.8) 10/25/16 06:49 Magnesium 1.9 mg/dL (1.6-2.6) 10/20/16 12:08 Urine Creatinine 113 mg/dL 10/23/16 13:47 Urine Sodium 41.0 mEq/L 10/23/16 13:47 Urine Total Protein 343 mg/dL (1-14) H 10/23/16 13:47 Consult Discharge Plan - Plan Referrals: Braden Cintron MD [Primary Care Provider] -
[2016-10-25] MEDS: 0.9 % Sodium Chloride 1,000 ML IVC SCH (12:43)
[2016-10-25] MEDS ORDERED: Sennosides/Docusate Sodium TABLET PO PRN (14:24)
[2016-10-25] MEDS ORDERED: Sennosides/Docusate Sodium TABLET PO ONE (14:24)
[2016-10-25 14:41] LABS: Total Volume 24 Hour,Urine 0.3 Liters (0.60-1.60)
[2016-10-25 15:52] LABS: Creatinine 24 Hour,Urine 0.41 g/day (0.71-1.65)
[2016-10-25] MEDS: traMADol 50 MG TABLET PO PRN (17:15)
[2016-10-26] MEDS: hydrALAZINE 25 MG TABLET PO SCH ×3 (03:01→12:32)
[2016-10-26 05:16] LABS: Basophils % 0.5 %; Hematocrit 29.5 % (35.3-44.9); Hemoglobin 9.4 g/dL (11.5-15.4); Lymphocytes # 0.7 K/mcL (0.6-4.6); Mean Corpuscular HGB Conc 31.9 g/dL (31.6-35.5); Mean Corpuscular Hemoglobin 29.2 pg (28.0-33.3); Mean Corpuscular Volume 91.6 fL (83.0-100.0); Mean Platelet Volume 9.9 fL (9.4-12.4); Monocytes # 0.4 K/mcL (0.0-1.3); Monocytes % 9.9 %; Neutrophils # 2.7 K/mcL (1.6-8.9); Platelet Count 152 K/mcL (140-400); Red Blood Count 3.22 M/mcL (3.82-4.97); Red Cell Distribution Width 13.7 % (11.5-14.5); Segmented Neutrophils % 70.6 %
[2016-10-26 05:23] LABS: Calcium 9.5 mg/dL (8.6-10.8); Potassium 4.9 mEq/L (3.5-4.5)
[2016-10-26] MEDS: 0.9 % Sodium Chloride 1,000 ML IVC SCH (05:40)
[2016-10-26] MEDS: *HR* Heparin 5,000 UNIT/ML VIAL SQ SCH (05:44)
[2016-10-26 08:34] LABS: Complement Component 3 104 mg/dL (88-201); Complement Component 4 39 mg/dL (10-40)
[2016-10-26] MEDS: amLODIPine 5 MG TABLET PO SCH (08:34)
[2016-10-26] MEDS: Insulin LISPRO 300 UNITS/3 ML VIAL SQ SCH ×2 (08:35→12:33)
[2016-10-26 08:40] LABS: ANA IgG by ELISA NONE DETECTED (None Detected)
[2016-10-26] MEDS: *HR* OxyCODONE/APAP 5/325 TABLET PO PRN (08:42)
--- NOTE | 2016-10-26 10:22 | Nephrology Progress Note ---
Date of Encounter: 10/26/16 Time of Encounter: 09:55 - Assessment and Plan (1) Acute renal failure Current Visit: Yes Status: Acute Creat improved 1.54. 24 hour urine protein, incomplet collection, useless information. Ordered stat spot urine sodium. 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 If renal fct remains stable can afford to hold off on renal biopsy. Work up in progress. Qualifiers: Acute renal failure type: unspecified Qualified Code(s): N17.9 - Acute kidney failure, unspecified Subjective Interval history: Sitting up in bed. States feeling better. States ankle pain under control. No new complaints. Objective - Vital Signs Vital signs: Vital Signs Temp Pulse Resp BP Pulse Ox 10/26/16 07:00 98.0 F 92 18 186/77 90 10/26/16 03:29 98.5 F 82 12 158/57 92 10/25/16 23:24 99.1 F 79 14 156/57 95 10/25/16 18:45 98.7 F 80 16 154/58 94 10/25/16 15:27 98.0 F 78 17 184/69 95 10/25/16 11:00 98.1 F 70 17 150/71 95 Intake and Output 10/25/16 10/26/16 10/26/16 23:59 07:59 15:59 Intake Total 1000 / 1000 360 / 360 Output Total 50 / 50 225 / 225 200 / 200 Balance -50 / -50 775 / 775 160 / 160 Intake: IV Fluids 1000 / 1000 0.9 % Sodium Chloride 1, 1000 / 1000 000 ML @ 60 mls/hr IVC . [id number] [facility] Rx#: [id number] Oral 360 / 360 Output: Urine 50 / 50 225 / 225 200 / 200 Other: Meal Breakfast Percent of Meal Consumed 100% Stool Size Smear Stool Consistency formed Stool Color Green Black # Voids 1 # Bowel Movements 1 Weight 68 kg Blood Glucose* 198 206 Patient Weight 10/26/16 23:59 Weight 68 kg - General Appearance General appearance: Present: well-developed, appears started age EENT: Present: mucous membranes moist Neck: Present: no JVD Respiratory: Present: clear Cardiology: Present: no edema, regular rate, regular rhythm Gastrointestinal: Present: normoactive bowel sounds, no tenderness Integumentary: Present: warm and dry Neurologic: Present: alert and oriented x3 Psychiatric: Present: mood/affect appropriate, cooperative - Lab 10/26/16 04:26 10/26/16 04:26 Most recent lab results Calcium 9.5 mg/dL (8.6-10.8) 10/26/16 04:26 Magnesium 1.9 mg/dL (1.6-2.6) 10/20/16 12:08 Urine Creatinine 138 mg/dL 10/25/16 04:20 Ur Total Protein 24 Hr 906 mg/day (0-299) H 10/25/16 04:20 Urine Sodium 41.0 mEq/L 10/23/16 13:47 Urine Total Protein 302 mg/dL (1-14) H 10/25/16 04:20 Consult Discharge Plan - Plan Referrals: Braden Cintron MD [Primary Care Provider] -
--- NOTE | 2016-10-26 12:38 | Discharge Summary ---
<Rohit Duggan - Last Filed: 10/26/16 14:15> Date of Encounter: 10/26/16 Time of Encounter: 12:31 - Discharge Diagnosis (1) Closed left ankle fracture Priority: Primary Status: Acute Comments: The patient will be transfered to an extended care facility for PT and rehab. Qualifiers: Encounter type: initial encounter Qualified Code(s): S82.892A - Other fracture of left lower leg, initial encounter for closed fracture (2) Acute renal failure Priority: Primary Status: Acute Comments: -Acute renal failure of unclear etiology, mild improvement today and stable. 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 -Pt will be going to a rehab facility. -The patient's renal function has been stable, and she can be appropriately worked up by nephrology outpatient. -Nephrology has requested outpatient labs, which we will order. Nephrology will follow up with patient 2-3 weeks. Qualifiers: Acute renal failure type: unspecified Qualified Code(s): N17.9 - Acute kidney failure, unspecified (3) HTN (hypertension) Priority: Secondary Status: Chronic Comments: Patient will be discharged on home meds, including the increased dose of amlodipine 10mg. -We will continue to hold the losartan due to kidney function decrease Qualifiers: Hypertension type: essential hypertension Qualified Code(s): I10 - Essential (primary) hypertension (4) Acute pain of left hip Priority: Secondary Status: Acute (5) HLD (hyperlipidemia) Priority: Secondary Status: Chronic Qualifiers: Hyperlipidemia type: mixed hyperlipidemia Qualified Code(s): E78.2 - Mixed hyperlipidemia (6) Anemia Priority: Primary Status: Acute Comments: The patient has had a stable hemoglobin for the past two days, and it has not been reported that she's continued to have black stools. Surgery has recommended that she follow up outpatient for a potential scope. We will continue PPI therapy for prophylaxis. Qualifiers: Anemia type: iron deficiency Iron deficiency anemia type: chronic blood loss Qualified Code(s): D50.0 - Iron deficiency anemia secondary to blood loss (chronic) (7) GERD (gastroesophageal reflux disease) Priority: Secondary Status: Chronic Qualifiers: Esophagitis presence: esophagitis presence not specified Qualified Code(s) : K21.9 - Gastro-esophageal reflux disease without esophagitis (8) Diabetes mellitus Priority: Secondary Status: Acute Comments: -Glucose remains high, between 200-300 generally. - insulin schedule to moderate sliding scale -Basal insulin dose should be considered Qualifiers: Diabetes mellitus type: type 2 Diabetes mellitus complication status: with unspecified complications Diabetes mellitus watermaster insulin use: without prison use Qualified Code(s): E11.8 - Type 2 diabetes mellitus with unspecified complications (9) DVT prophylaxis Priority: Secondary Status: Acute - Discharge Medications Prescriptions: amLODIPine [Norvasc] 10 mg PO DAILY #60 tab Ferrous Gluconate 324 mg PO DAILY #30 Home Medications: Atorvastatin [Lipitor] 40 mg PO DAILY 12/13/14 [History] Citalopram Hydrobromide [Celexa] 20 mg PO DAILY 12/13/14 [History] Aspirin/Dipyridamole [Aggrenox 25 mg-200 mg Capsule] 1 cap PO BID 04/23/16 [ History] Carvedilol [Coreg] 25 mg PO BID 04/23/16 [History] Potassium Chloride [Klor-Con Sprinkle] 10 meq PO BID 04/23/16 [History] Quetiapine Fumarate [Seroquel] 25 mg PO HS 04/23/16 [History] Sertraline [Zoloft] 50 mg PO DAILY 04/23/16 [History] Furosemide [Lasix] 20 mg PO BID 10/20/16 [History] Memantine HCl 10 mg PO DAILY 10/20/16 [History] Spironolactone [Aldactone] 25 mg PO BID 10/20/16 [History] clonazePAM [Klonopin] 1 mg PO HS 10/20/16 [History] Docusate [Colace] 100 mg PO BID #0 10/26/16 [Rx] Ferrous Gluconate 324 mg PO DAILY #30 10/26/16 [Rx] Glucagon, Human Recombinant [Glucagen] 1 mg IM ONCE PRN vial 10/26/16 [Rx] Insulin LISPRO [HumaLOG] 0 units SQ HS vial 10/26/16 [Rx] Insulin LISPRO [HumaLOG] 0 units SQ TIDAC vial 10/26/16 [Rx] Omeprazole [PriLOSEC] 40 mg PO DAILY@0630 10/26/16 [Rx] Ondansetron [Zofran] 4 mg IVP Q8HR PRN vial 10/26/16 [Rx] amLODIPine [Norvasc] 10 mg PO DAILY #60 tab 10/26/16 [Rx] hydrALAZINE [HydrALAZINE] 20 mg IVP Q6HR PRN vial 10/26/16 [Rx] hydrALAZINE [HydrALAZINE] 50 mg PO Q6HR tab 10/26/16 [Rx] Allergies/Adverse Reactions: Allergies codeine Allergy (Verified 02/24/15 06:48) Rash Penicillins Allergy (Verified 02/24/15 06:48) Rash propoxyphene Allergy (Verified 10/20/16 10:39) Rash Date of admission: 10/20/16 11:15 Primary care physician: Braden Cintron MD Consults: 10/20/16 11:51 Consult to Physical Therapy [CONS] Routine Comment: Evaluate, develop and implement POC Reason for Consult: PT eval Consult to [employer] Consultant [CONS] Routine Reason for SW Consult: d/c planning 10/20/16 12:11 Consult to Occupational Therapy [CONS] Routine Comment: Evaluate, develop and implement POC Reason for Consult: Patient has weakness and is being admitted d/t fall/ fracture of distal fibula. Needs assessment for resumption of home activities post- rehab. 10/23/16 13:40 Consult to Nephrology [CONS] Routine Consulting Provider: [facility] Reason for Consult: New CAROL for unknown reason Call Completed: No - Patient Status Disposition: Transfer Inpatient Rehab Fac Condition: Good Functional capacity at discharge: bed bound Overall status at discharge: other - Discharge Instructions Follow Up With: Braden Cintron MD [Primary Care Provider] - Additional Instructions: Follow up with Nephrology in 2-3 weeks. Hospital course: Ms. Villalobos is a 81 year old female with a past medical history of hypertension, hyperlipidemia, anxiety, GERD, and depression presented to the ED after sustaining a fall that resulted in a fracture to her left distal fibula. The patient has been having trouble with generalized weakness over the past few months, and worsening gradually. The patient's leg was splinted and admitted to the hospital for placement and rehabilitation Center. During her stay, was noted the patient's kidney function was declining. Nephrology was consulted and determined that this was likely due to an intrinsic renal pathology, possibly glomerular disease. Over the course of her stay the patient's kidney function has been monitored and has steadily become worse stable. Additionally , the patient was found to have a hemoglobin that was 11.9 on the day of admission, which steadily dropped to 9.6 over the course for admission. Hemoccult was ordered however the patient was constipated and unable to provide a stool sample. She demonstrated hemodynamic stability however, and it was determined that she should follow up for an outpatient scope. Today, the patient stable and ready for transfer to rehabilitation facility where she can receive physical therapy and continued follow-up. - Time Spent with Patient Total time spent providing and/or coordinating discharge services: - Constitutional Vitals: Temp Pulse Resp BP Pulse Ox 97.7 F 86 17 183/69 93 10/26/16 11:03 10/26/16 11:03 10/26/16 11:03 10/26/16 11:03 10/26/16 11:03 General appearance: Present: cooperative, pleasant, no acute distress, answers questions appropriately Exam: General appearance: Present: cooperative, pleasant, no acute distress, answers questions appropriately - Head Head exam: Present: atraumatic, normocephalic - Eye Eye exam: Present: PERRL, conjuntiva pink, sclera anicteric Pupils: Present: PERRL - Neck Neck exam general surgery: Present: supple, trachea midline. Absent: lymphadenopathy - Respiratory Respiratory exam: Present: CTAB. Absent: accessory muscle use, rales, rhonchi, wheezes - Cardiovascular Cardiovascular exam: Present: RRR, +S1, +S2, systolic murmur. Absent: diastolic murmur, gallop, rubs Additional comments: 2/6 systolic murmur heard most clearly at the right sternal border. - GI/Abdominal GI/Abdominal exam: Present: normal bowel sounds, soft, no peritoneal signs. Absent: distended, tenderness - Extremities Exam Extremities exam: Present: warm, radial pulses palpable and symetrical. Absent : calf tenderness, cyanotic, pedal edema - Neurological Exam Neurological exam: Present: CN II-XII intact, oriented X3, no focal deficits. Absent: pronater drift, facial droop, speech deficit - Psychiatric Psychiatric exam: Present: flat affect - Skin Skin exam: Present: dry, intact <Cuauhtemoc Singh - Last Filed: 10/26/16 14:42> Date of Encounter: 10/26/16 - Discharge Diagnosis (1) Ankle fracture Priority: Primary Status: Acute Qualifiers: Encounter type: subsequent encounter Fracture type: closed Laterality: left Fracture healing: with routine healing Qualified Code(s): S82.892D - Other fracture of left lower leg, subsequent encounter for closed fracture with routine healing (2) Acute renal failure Status: Acute Qualifiers: Acute renal failure type: unspecified Qualified Code(s): N17.9 - Acute kidney failure, unspecified (3) 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 (4) HTN (hypertension) Status: Chronic Qualifiers: Hypertension type: essential hypertension Qualified Code(s): I10 - Essential (primary) hypertension (5) Diabetes mellitus Status: Acute Qualifiers: Diabetes mellitus type: type 2 Diabetes mellitus complication status: without complication Diabetes mellitus prison insulin use: without prison use Qualified Code(s): E11.9 - Type 2 diabetes mellitus without complications (6) GERD (gastroesophageal reflux disease) Status: Chronic Qualifiers: Esophagitis presence: esophagitis presence not specified Qualified Code(s) : K21.9 - Gastro-esophageal reflux disease without esophagitis (7) HLD (hyperlipidemia) Status: Chronic Qualifiers: Hyperlipidemia type: mixed hyperlipidemia Qualified Code(s): E78.2 - Mixed hyperlipidemia (8) Iron (Fe) deficiency anemia Priority: Secondary Status: Acute Qualifiers: Iron deficiency anemia type: inadequate dietary iron intake Qualified Code( s): D50.8 - Other iron deficiency anemias (9) Lumbar stenosis Priority: Secondary Status: Chronic Date of admission: 10/20/16 11:15 Primary care physician: Braden Cintron MD Consults: 10/20/16 11:51 Consult to Physical Therapy [CONS] Routine Comment: Evaluate, develop and implement POC Reason for Consult: PT eval Consult to [employer] Consultant [CONS] Routine Reason for SW Consult: d/c planning 10/20/16 12:11 Consult to Occupational Therapy [CONS] Routine Comment: Evaluate, develop and implement POC Reason for Consult: Patient has weakness and is being admitted d/t fall/ fracture of distal fibula. Needs assessment for resumption of home activities post- rehab. 10/23/16 13:40 Consult to Nephrology [CONS] Routine Consulting Provider: [facility] Reason for Consult: New CAROL for unknown reason Call Completed: No Discharging clinician: Cuauhtemoc Singh Anticipated date of discharge: 10/26/16 Hospital course: Ms. Villalobos is a 81 year old female - Time Spent with Patient Total time spent providing and/or coordinating discharge services: 39min - Constitutional Vitals: Temp Pulse Resp BP Pulse Ox 97.7 F 86 17 183/69 93 10/26/16 11:03 10/26/16 11:03 10/26/16 11:03 10/26/16 11:03 10/26/16 11:03 - Attending Attestation I examined this patient and my medical decision-making was reviewed with the Resident Physician on 10/26/16. I agree with the documented findings, disposition and treatment plan as described except to the extent set forth below. Ms. Villalobos has been admitted for acute L closed ankle fracture. She was found to have acute renal failure and significant proteinuria (nephrotic range) as well as concern for GN. Her renal function gradually improved with treatment and she will be followed by Dr. Montero. At this time she is afebrile with stable vitals. Her pain is controlled. Exam Alert. Comfortable Heart reg Lungs clear Abd soft Mucus membranes moist Plan D/C to SNF today Follow up with renal in 2-3 weeks Labs per renal request
--- NOTE | 2016-10-26 14:21 | Physician Discharge Referral ---
<Rohit Duggan - Last Filed: 10/26/16 14:23> ExtendedCare Referral Info Transfer To: [facility] Provider in Charge: Dr. Cuauhtemoc Singh Provider in Charge after Transfer: PCP Institutional Level of Care: Skilled - Diagnosis (1) Closed left ankle fracture Priority: Primary Status: Acute (2) Acute renal failure Priority: Primary Status: Acute (3) HTN (hypertension) Priority: Secondary Status: Chronic (4) Acute pain of left hip Priority: Secondary Status: Acute (5) HLD (hyperlipidemia) Priority: Secondary Status: Chronic (6) Anemia Priority: Primary Status: Acute (7) GERD (gastroesophageal reflux disease) Priority: Secondary Status: Chronic (8) Diabetes mellitus Priority: Secondary Status: Acute (9) DVT prophylaxis Priority: Secondary Status: Acute Expected Duration of Placement: <30 days Prognosis: Good Aware of Diagnosis: Patient, Family Aware of Prognosis: Patient, Family - Transfer Medications Prescriptions: amLODIPine [Norvasc] 10 mg PO DAILY #60 tab Ferrous Gluconate 324 mg PO DAILY #30 Home Medications: Atorvastatin [Lipitor] 40 mg PO DAILY 12/13/14 [History] Citalopram Hydrobromide [Celexa] 20 mg PO DAILY 12/13/14 [History] Aspirin/Dipyridamole [Aggrenox 25 mg-200 mg Capsule] 1 cap PO BID 04/23/16 [ History] Carvedilol [Coreg] 25 mg PO BID 04/23/16 [History] Potassium Chloride [Klor-Con Sprinkle] 10 meq PO BID 04/23/16 [History] Quetiapine Fumarate [Seroquel] 25 mg PO HS 04/23/16 [History] Sertraline [Zoloft] 50 mg PO DAILY 04/23/16 [History] Furosemide [Lasix] 20 mg PO BID 10/20/16 [History] Memantine HCl 10 mg PO DAILY 10/20/16 [History] Spironolactone [Aldactone] 25 mg PO BID 10/20/16 [History] clonazePAM [Klonopin] 1 mg PO HS 10/20/16 [History] Docusate [Colace] 100 mg PO BID #0 10/26/16 [Rx] Ferrous Gluconate 324 mg PO DAILY #30 10/26/16 [Rx] Glucagon, Human Recombinant [Glucagen] 1 mg IM ONCE PRN vial 10/26/16 [Rx] Insulin LISPRO [HumaLOG] 0 units SQ HS vial 10/26/16 [Rx] Insulin LISPRO [HumaLOG] 0 units SQ TIDAC vial 10/26/16 [Rx] Omeprazole [PriLOSEC] 40 mg PO DAILY@0630 10/26/16 [Rx] Ondansetron [Zofran] 4 mg IVP Q8HR PRN vial 10/26/16 [Rx] amLODIPine [Norvasc] 10 mg PO DAILY #60 tab 10/26/16 [Rx] hydrALAZINE [HydrALAZINE] 20 mg IVP Q6HR PRN vial 10/26/16 [Rx] hydrALAZINE [HydrALAZINE] 50 mg PO Q6HR tab 10/26/16 [Rx] Allergies/Adverse Reactions: Allergies codeine Allergy (Verified 02/24/15 06:48) Rash Penicillins Allergy (Verified 02/24/15 06:48) Rash propoxyphene Allergy (Verified 10/20/16 10:39) Rash - Respiratory Orders Smoking Cessation: Smoking cessation has been advised. For more information, call the [employer] Line at 5-989-PNGC-NOW. - Lab Orders Lab Orders: CBC (weekly), Other (include drug levels w/frequency) (BMP weekly) - Ancillary Orders May use pressure relief devices daily prn - Advance Directives Code Status: Full Code - History and Physical History/Physical reviewed & approved w/add comments: No significant change - Mobility Orders Chair - Rehabiliation Orders Rehab Potential: Good Rehab Orders: Evaluation for Physical Therapy, Evaluation for Occupational Therapy - Diet Orders Regular CERTIFICATION: I certify that the transfer of the above named patient to an Extended Care Facility is necessary for the continuing treatment of the diagnosis listed. The above information is true and accurate reflection of patient's current condition. Confidential - Redisclosure prohibited without a patient's written consent. <Cauuhtemoc Singh - Last Filed: 10/26/16 14:25> ExtendedCare Referral Info Transfer To: [facility] - Respiratory Orders Smoking Cessation: Smoking cessation has been advised. For more information, call the [employer] Line at 8-324-KUNU-NOW. - Treatments Skin tear care topically daily PRN per policy, May check for fecal impaction rectally daily PRN, Fleet enema rectally every other day PRN cleansing purposes - Diet Orders No Concentrated Sweets CERTIFICATION: I certify that the transfer of the above named patient to an Extended Care Facility is necessary for the continuing treatment of the diagnosis listed. The above information is true and accurate reflection of patient's current condition. Confidential - Redisclosure prohibited without a patient's written consent.
[2016-10-26 15:25] VITALS: BP 157/67
[2016-10-27 21:04] LABS: Alpha 2 Globulin (PEP) 0.81 g/dL (0.48-1.05); Beta Globulin (PEP) 0.64 g/dL (0.48-1.10)
[2016-10-29 09:53] LABS: IFE Reflexed IFE Done; Immunoglobulin A 110 mg/dL (68-408); Immunoglobulin G 532 mg/dL (768-1632); Immunoglobulin M 19 mg/dL (35-263)
[2016-10-29 15:55] LABS: Urine Collection Duration RANDOM hr; Urine Collection Volume RANDOM mL
== END 2016-10-26 16:32 ==
LOC: EMEROO 07:52 → 3BNU 07:52 → SUATTDRO 11:15 → 3BNU 11:17
PROVIDERS: ADMIT Family Medicine; ATTEND Internal Medicine

== ENCOUNTER 2016-12-22 14:38 | Inpatient (IN) ==
[2016-12-22] MEDS ORDERED: *HR* Morphine 2 MG/ML SYRINGE IVP ONE (14:43)
[2016-12-22] MEDS ORDERED: Ondansetron 4 MG/2 ML VIAL IVP ONE (14:43)
--- NOTE | 2016-12-22 14:50 | Emergency Department Note ---
Disposition Clinical Impression: Bilateral pleural effusion, Congestive heart failure, Lower abdominal pain, Renal insufficiency, Proteinuria Disposition: Admitted As Inpatient Condition: Fair Referrals: NONE,PCP [Primary Care Provider] - Forms: Work/School Release, ED Satisfaction Letter Time of Disposition: 16:46 Abdominal Pain HPI - General Chief Complaint: ED Abdominal Pain Stated Complaint: abdominal pain Time Seen by Provider: 12/22/16 14:39 Source: patient, EMS Nursing Notes Reviewed: Yes Vital Signs Reviewed: Yes - History of Present Illness HPI Narrative: 81-year-old female presents emergency room for abdominal pain and nausea. States she started up one time today as well. No diarrhea. Some slight constipation. She denies any urinary symptoms. She is complaining of pain to the right lower quadrant on palpation and at rest. No pain radiation. She states she still has an appendix. No documented fevers. [facility] She wears chronic oxygen she states. History of a right mastectomy. No other modifying factors or any other complaints at this time. Pt Subjective Complaint: abdominal pain Pain Scale: 5 - Related Data Home Medications Medication Instructions Recorded Confirmed Atorvastatin [Lipitor] 40 mg PO DAILY 12/13/14 10/20/16 Citalopram Hydrobromide [Celexa] 20 mg PO DAILY 12/13/14 10/20/16 Aspirin/Dipyridamole [Aggrenox 25 1 cap PO BID 04/23/16 10/20/16 mg-200 mg Capsule] Carvedilol [Coreg] 25 mg PO BID 04/23/16 10/20/16 Potassium Chloride [Klor-Con 10 meq PO BID 04/23/16 10/20/16 Sprinkle] Quetiapine Fumarate [Seroquel] 25 mg PO HS 04/23/16 10/20/16 Sertraline [Zoloft] 50 mg PO DAILY 04/23/16 10/20/16 Furosemide [Lasix] 20 mg PO BID 10/20/16 10/20/16 Memantine HCl 10 mg PO DAILY 10/20/16 10/20/16 Spironolactone [Aldactone] 25 mg PO BID 10/20/16 10/20/16 clonazePAM [Klonopin] 1 mg PO HS 10/20/16 10/20/16 Previous Rx's Medication Instructions Recorded Docusate [Colace] 100 mg PO BID #0 10/26/16 Ferrous Gluconate 324 mg PO DAILY #30 10/26/16 Glucagon, Human Recombinant 1 mg IM ONCE PRN vial 10/26/16 [Glucagen] Insulin LISPRO [HumaLOG] 0 units SQ HS vial 10/26/16 Insulin LISPRO [HumaLOG] 0 units SQ TIDAC vial 10/26/16 Omeprazole [PriLOSEC] 40 mg PO DAILY@0630 10/26/16 Ondansetron [Zofran] 4 mg IVP Q8HR PRN vial 10/26/16 amLODIPine [Norvasc] 10 mg PO DAILY #60 tab 10/26/16 hydrALAZINE [HydrALAZINE] 20 mg IVP Q6HR PRN vial 10/26/16 hydrALAZINE [HydrALAZINE] 50 mg PO Q6HR tab 10/26/16 Levofloxacin [Levaquin] 500 mg PO DAILY #7 tablet 12/07/16 Allergies Allergy/AdvReac Type Severity Reaction Status Date / Time codeine Allergy Rash Verified 02/24/15 06:48 Penicillins Allergy Rash Verified 02/24/15 06:48 propoxyphene Allergy Rash Verified 10/20/16 10:39 Constitutional: Denies: fever ENT ED: Reports: as per HPI Cardiovascular: Reports: as per HPI Respiratory: Denies: cough, dyspnea, wheezes, sputum production Gastrointestinal: Reports: abdominal pain, nausea, vomiting. Denies: diarrhea, constipation Genitourinary: Denies: urgency, dysuria, frequency Musculoskeletal: Reports: as per HPI Integumentary: Reports: as per HPI Neurological: Reports: as per HPI Psychiatric: Reports: as per HPI Endocrine: Reports: as per HPI Hematological/Lymphatic: Reports: as per HPI Abdominal Pain PMH - Past Medical History Medical history: Reports: cancer, GERD, hyperlipidemia, hypertension Female Surgical History: Reports: breast surgery, knee replacement, orthopedic, other Psychiatric history: Reports: anxiety, depression - Social History Smoking status: Never smoker Alcohol use: Reports: none Drug use: Reports: none Physical Exam - General Limitations: no limitations General appearance: alert, in no apparent distress - Head Head exam: atraumatic, normocephalic - Neck Neck exam: Present: normal inspection - Chest Chest inspection: Present: normal inspection, symmetric chest wall rise - Respiratory Respiratory exam: Present: other (Decreased breath sounds in the bases bilaterally.). Absent: respiratory distress, prolonged expiratory phase - Cardiovascular Cardiovascular exam: Present: regular rate, normal rhythm, normal heart sounds - Abdominal Exam Abdominal exam: Present: soft, tenderness (Positive tenderness to the suprapubic and right lower quadrant regions. Normal bowel sounds.) - Extremities Exam Extremities exam: Present: normal inspection - Expanded Lower Extremity Exam Hip/Pelvis exam: Present: normal inspection - Back Exam Back exam: Present: normal inspection - Neurological Exam Neurological exam: Present: alert, oriented X3 - Psychiatric Psychiatric exam: Present: normal affect, normal mood - Skin Skin exam: Present: warm, dry, intact Course Course Narrative: Patient had a workup for abdominal pain as well as her primary complaint. Her CT of her belly showed generalized anasarca but no evidence of any acute process. Her labs are otherwise unremarkable from an abdominal pain standpoint. Normal urinalysis. Normal lactate. Normal LFTs and lipase. It was noted on the CT scan that she had significant size pleural effusions. I added a chest x-ray which then confirmed she has extensive pleural effusions. Her BNP was elevated at 1259. Her troponin was normal. Her EKG did not reveal any signs of acute ischemia. In review of her old reports she had an EF of approximately 55% with good wall motion and no left ventricular abnormalities. This was done and June 2016. It appears today that she is in acute CHF. I suspect her abdominal pain is secondary to generalized anasarca in the abdomen on the CT. Her lactate again was normal so I doubt any ischemic properties. There is no ischemic findings noted on the CT scan. I spoke with the hospitalist. The patient need be admitted for further workup of her CHF. I gave her 40 of IV Lasix. She is otherwise hemodynamically stable. Her blood pressure is now down to 170 systolic. Vital Signs Temperature 99.1 F 12/22/16 14:40 Pulse Rate 81 12/22/16 14:40 Respiratory Rate 18 12/22/16 14:40 Blood Pressure 191/73 12/22/16 14:40 O2 Sat by Pulse Oximetry 93 12/22/16 14:40 Temperature 99.1 F 12/22/16 14:40 Pulse Rate 80 12/22/16 15:28 Respiratory Rate 18 12/22/16 15:28 Blood Pressure 170/71 12/22/16 15:28 O2 Sat by Pulse Oximetry 95 12/22/16 15:28 Oxygen Delivery Oxygen Delivery Nasal Cannula Abdominal Pain - Medical Records Medical records reviewed: Yes I reviewed the patient's medical records. - Lab Data Lab results reviewed: Yes I reviewed the patient's lab results. Result diagrams: 12/22/16 14:59 12/22/16 15:30 Lab Results 12/22/16 12/22/16 12/22/16 Range/Units 14:45 14:59 14:59 WBC 4.6 (4.3-11.1) K/mcL RBC 3.42 L (3.82-4.97) M/mcL Hgb 9.9 L (11.5-15.4) g/dL Hct 31.7 L (35.3-44.9) % MCV 92.7 (83.0-100.0) fL MCH 28.9 (28.0-33.3) pg MCHC 31.2 L (31.6-35.5) g/dL RDW 13.3 (11.5-14.5) % Plt Count 194 (140-400) K/mcL MPV 9.0 L (9.4-12.4) fL Immature Gran % 0.7 (0-4) % Seg Neutrophils % 79.4 % Lymphocytes % 10.1 % Monocytes % 7.2 % Eosinophils % 2.2 % Basophils % 0.4 % Neutrophils # 3.6 (1.6-8.9) K/mcL Lymphocytes # 0.5 L (0.6-4.6) K/mcL Monocytes # 0.3 (0.0-1.3) K/mcL Eosinophils # 0.1 (0.0-0.6) K/mcL Basophils # 0.0 (0.0-0.2) K/mcL Immature Plt Fraction 1.6 (1.1-6.1) % Sodium (136-145) mEq/L Potassium (3.5-4.5) mEq/L Chloride (98-109) mEq/L Carbon Dioxide (19-29) mEq/L BUN (7-20) mg/dL Creatinine (0.57-1.11) mg/dL Est GFR ( Amer) (> 60) Est GFR (Non-Af Amer) (> 60) BUN/Creatinine Ratio (6-26) Glucose (70-99) mg/dL Calculated Osmolality (280-300) Lactic Acid 0.6 (0.5-2.2) mmol/L Calcium (8.6-10.8) mg/dL Total Bilirubin (0.2-1.2) mg/dL Direct Bilirubin (0.0-0.5) mg/dL Indirect Bilirubin (0.0-1.2) mg/dL AST (5-34) Units/L ALT (0-55) Units/L Alkaline Phosphatase (38-126) Units/L Troponin I (0-0.03) ng/mL B-Natriuretic Peptide (0-100) pg/mL Serum Total Protein (6.0-8.3) g/dL Albumin (3.5-5.0) g/dL Globulin (2.4-3.5) g/dL Albumin/Globulin Ratio (1.1-2.2) Lipase (8-78) Units/L Urine Color Yellow (Yellow) Urine Clarity Clear (Clear) Urine pH 7.0 (5.0-8.0) pH Units Ur Specific [place] 1.016 (1.010-1.025) Urine Protein >=300 H (Neg-Trace) mg/dL Urine Glucose (UA) Normal (Normal) mg/dL Urine Ketones Negative (Negative) mg/dL Urine Blood Negative (Negative) Urine Nitrite Negative (Negative) Urine Bilirubin Negative (Negative) Urine Urobilinogen Normal (Normal) mg/dL Ur Leukocyte Esterase Negative (Negative) Urine Microscopic RBC 0-3 (0-3) per hpf Urine Microscopic WBC 0-3 (0-3) per hpf Ur Squamous Epith Cells Many H (None-Few) per lpf Urine Bacteria None Seen (None-Few) per hpf Hyaline Casts Few (None-Few) per lpf Ur Culture Indicated? NO (NO) Specimen Rejected 12/22/16 12/22/16 12/22/16 Range/Units 14:59 14:59 14:59 WBC (4.3-11.1) K/mcL RBC (3.82-4.97) M/mcL Hgb (11.5-15.4) g/dL Hct (35.3-44.9) % MCV (83.0-100.0) fL MCH (28.0-33.3) pg MCHC (31.6-35.5) g/dL RDW (11.5-14.5) % Plt Count (140-400) K/mcL MPV (9.4-12.4) fL Immature Gran % (0-4) % Seg Neutrophils % % Lymphocytes % % Monocytes % % Eosinophils % % Basophils % % Neutrophils # (1.6-8.9) K/mcL Lymphocytes # (0.6-4.6) K/mcL Monocytes # (0.0-1.3) K/mcL Eosinophils # (0.0-0.6) K/mcL Basophils # (0.0-0.2) K/mcL Immature Plt Fraction (1.1-6.1) % Sodium (136-145) mEq/L Potassium (3.5-4.5) mEq/L Chloride (98-109) mEq/L Carbon Dioxide (19-29) mEq/L BUN (7-20) mg/dL Creatinine (0.57-1.11) mg/dL Est GFR ( Amer) (> 60) Est GFR (Non-Af Amer) (> 60) BUN/Creatinine Ratio (6-26) Glucose (70-99) mg/dL Calculated Osmolality (280-300) Lactic Acid (0.5-2.2) mmol/L Calcium (8.6-10.8) mg/dL Total Bilirubin (0.2-1.2) mg/dL Direct Bilirubin (0.0-0.5) mg/dL Indirect Bilirubin (0.0-1.2) mg/dL AST (5-34) Units/L ALT (0-55) Units/L Alkaline Phosphatase (38-126) Units/L Troponin I 0.03 (0-0.03) ng/mL B-Natriuretic Peptide 1259 H (0-100) pg/mL Serum Total Protein (6.0-8.3) g/dL Albumin (3.5-5.0) g/dL Globulin (2.4-3.5) g/dL Albumin/Globulin Ratio (1.1-2.2) Lipase (8-78) Units/L Urine Color (Yellow) Urine Clarity (Clear) Urine pH (5.0-8.0) pH Units Ur Specific [place] (1.010-1.025) Urine Protein (Neg-Trace) mg/dL Urine Glucose (UA) (Normal) mg/dL Urine Ketones (Negative) mg/dL Urine Blood (Negative) Urine Nitrite (Negative) Urine Bilirubin (Negative) Urine Urobilinogen (Normal) mg/dL Ur Leukocyte Esterase (Negative) Urine Microscopic RBC (0-3) per hpf Urine Microscopic WBC (0-3) per hpf Ur Squamous Epith Cells (None-Few) per lpf Urine Bacteria (None-Few) per hpf Hyaline Casts (None-Few) per lpf Ur Culture Indicated? (NO) Specimen Rejected Hemolyzed 12/22/16 Range/Units 15:30 WBC (4.3-11.1) K/mcL RBC (3.82-4.97) M/mcL Hgb (11.5-15.4) g/dL Hct (35.3-44.9) % MCV (83.0-100.0) fL MCH (28.0-33.3) pg MCHC (31.6-35.5) g/dL RDW (11.5-14.5) % Plt Count (140-400) K/mcL MPV (9.4-12.4) fL Immature Gran % (0-4) % Seg Neutrophils % % Lymphocytes % % Monocytes % % Eosinophils % % Basophils % % Neutrophils # (1.6-8.9) K/mcL Lymphocytes # (0.6-4.6) K/mcL Monocytes # (0.0-1.3) K/mcL Eosinophils # (0.0-0.6) K/mcL Basophils # (0.0-0.2) K/mcL Immature Plt Fraction (1.1-6.1) % Sodium 138 (136-145) mEq/L Potassium 3.4 L (3.5-4.5) mEq/L Chloride 105 (98-109) mEq/L Carbon Dioxide 25 (19-29) mEq/L BUN 18 (7-20) mg/dL Creatinine 1.33 H (0.57-1.11) mg/dL Est GFR ( Amer) 46 L (> 60) Est GFR (Non-Af Amer) 38 L (> 60) BUN/Creatinine Ratio 14 (6-26) Glucose 97 (70-99) mg/dL Calculated Osmolality 288 (280-300) Lactic Acid (0.5-2.2) mmol/L Calcium 9.6 (8.6-10.8) mg/dL Total Bilirubin 0.6 (0.2-1.2) mg/dL Direct Bilirubin 0.3 (0.0-0.5) mg/dL Indirect Bilirubin 0.3 (0.0-1.2) mg/dL AST 13 (5-34) Units/L ALT 6 (0-55) Units/L Alkaline Phosphatase 51 (38-126) Units/L Troponin I (0-0.03) ng/mL B-Natriuretic Peptide (0-100) pg/mL Serum Total Protein 5.5 L (6.0-8.3) g/dL Albumin 2.5 L (3.5-5.0) g/dL Globulin 3.0 (2.4-3.5) g/dL Albumin/Globulin Ratio 0.8 L (1.1-2.2) Lipase 39 (8-78) Units/L Urine Color (Yellow) Urine Clarity (Clear) Urine pH (5.0-8.0) pH Units Ur Specific [place] (1.010-1.025) Urine Protein (Neg-Trace) mg/dL Urine Glucose (UA) (Normal) mg/dL Urine Ketones (Negative) mg/dL Urine Blood (Negative) Urine Nitrite (Negative) Urine Bilirubin (Negative) Urine Urobilinogen (Normal) mg/dL Ur Leukocyte Esterase (Negative) Urine Microscopic RBC (0-3) per hpf Urine Microscopic WBC (0-3) per hpf Ur Squamous Epith Cells (None-Few) per lpf Urine Bacteria (None-Few) per hpf Hyaline Casts (None-Few) per lpf Ur Culture Indicated? (NO) Specimen Rejected - Radiology Data Radiology results reviewed: Yes I reviewed the patient's radiology results. - EKG Data EKG attestation: Yes I reviewed and interpreted this EKG. EKG results narrative: EKG shows a rate of 80. Normal sinus rhythm. Left axis deviation. [place] interval 160. QRS 110. QTc 459. Critical Care Time Critical Care Time: No
[2016-12-22 15:06] LABS: Basophils % 0.4 %; Eosinophils # 0.1 K/mcL (0.0-0.6); Eosinophils % 2.2 %; Hematocrit 31.7 % (35.3-44.9); Hemoglobin 9.9 g/dL (11.5-15.4); Immature Granulocytes % 0.7 % (0-4); Immature Platelets 1.6 % (1.1-6.1); Lymphocytes # 0.5 K/mcL (0.6-4.6); Lymphocytes % 10.1 %; Mean Corpuscular HGB Conc 31.2 g/dL (31.6-35.5); Mean Corpuscular Hemoglobin 28.9 pg (28.0-33.3); Mean Corpuscular Volume 92.7 fL (83.0-100.0); Monocytes # 0.3 K/mcL (0.0-1.3); Monocytes % 7.2 %; Neutrophils # 3.6 K/mcL (1.6-8.9); Platelet Count 194 K/mcL (140-400); Red Blood Count 3.42 M/mcL (3.82-4.97); Red Cell Distribution Width 13.3 % (11.5-14.5); Segmented Neutrophils % 79.4 %
[2016-12-22 15:08] LABS: Bilirubin,Urine Negative (Negative); Blood,Urine Negative (Negative); Clarity,Urine Clear (Clear); Color,Urine Yellow (Yellow); Glucose,Urine (UA) Normal (Normal); Ketones,Urine Negative (Negative); Leukocyte Esterase,Urine Negative (Negative); Nitrite,Urine Negative (Negative); Protein,Urine >=300 mg/dL (Neg-Trace); Specific Gravity,Urine 1.016 (1.010-1.025); Urobilinogen,Urine Normal (Normal)
[2016-12-22 15:10] LABS: Bacteria,Urine None Seen per hpf (None-Few); Hyaline Casts,Urine Few per lpf (None-Few); RBC,Urine 0-3 per hpf (0-3); Squamous Epithelial Cell,Urine Many per lpf (None-Few); WBC,Urine 0-3 per hpf (0-3)
[2016-12-22] MEDS ORDERED: *HR* FentaNYL (PF) 100 MCG/2 ML VIAL IVP ONE (15:25)
[2016-12-22 15:55] LABS: Albumin 2.5 g/dL (3.5-5.0); Albumin/Globulin Ratio 0.8 (1.1-2.2); Bilirubin,Direct 0.3 mg/dL (0.0-0.5); Bilirubin,Indirect 0.3 mg/dL (0.0-1.2); Bilirubin,Total 0.6 mg/dL (0.2-1.2); Calcium 9.6 mg/dL (8.6-10.8); Potassium 3.4 mEq/L (3.5-4.5); Total Protein 5.5 g/dL (6.0-8.3)
[2016-12-22] MEDS ORDERED: Furosemide 40 MG/4 ML VIAL IVP ONE (15:57)
[2016-12-22] MEDS ORDERED: Naloxone 0.4 MG/ML INJ IVP PRN (17:29)
[2016-12-22] MEDS ORDERED: Potassium Chloride Elixir 20 MEQ/15 ML UDC PO ONE (17:36)
--- NOTE | 2016-12-22 17:59 | Internal Med History&Physical ---
Date of Encounter: 12/22/16 Time of Encounter: 17:00 Assessment and Plan (1) Proteinuria Current visit: Yes Status: Acute Patient is noted to have nephrotic range of proteinuria, close to 1.5 g during her previous admission in October 2016, she has been assessed by nephrology, immunology/serology/electrophoresis labs have been sent with outpatient nephrology follow-up. Serum vitamin D noted to be low and intact PTH high. Urine freak up and lambda light chains are noted to be elevated, serum protein electrophoresis normal. We will consult nephrology for further recommendations. Patient's anasarca and bilateral pleural effusions may be related to underlying nephrotic syndrome. Serum creatinine noted to be 1.3, noted to be improving since her previous admission. Qualifiers: Proteinuria type: unspecified Qualified Code(s): R80.9 - Proteinuria, unspecified (2) Bilateral pleural effusion Current visit: Yes Status: Chronic Patient is noted to have worsening bilateral pleural effusions along with presacral edema and pedal edema and proteinuria, elevated BNP at about 1300. Unclear etiology for volume overload, could be underlying CHF versus hypoalbuminemia and nephrotic syndrome. Start IV Lasix and continue oral spironolactone. Fluid restriction. Monitor urine output and electrolytes closely. Patient will require right-sided thoracentesis by IR, pleural fluid analysis. Low suspicion for pneumonia at this time. We will check 2-D echocardiogram to rule out underlying CHF. (3) Anxiety Current visit: Yes Status: Chronic Continue when necessary benzodiazepines. (4) Lumbar stenosis Current visit: Yes Status: Chronic Pain control with when necessary oxycodone. (5) Ankle fracture Current visit: Yes Status: Chronic Left ankle noted to be in place. Physical and occupational therapy. Qualifiers: Encounter type: subsequent encounter Fracture type: closed Laterality: left Fracture healing: with routine healing Qualified Code(s): S82.892D - Other fracture of left lower leg, subsequent encounter for closed fracture with routine healing (6) HTN (hypertension) Current visit: Yes Status: Chronic Blood pressure noted to be elevated. Start home medications with first dose is now-Norvasc, Coreg and hydralazine. Low-sodium diet. Qualifiers: Hypertension type: essential hypertension Qualified Code(s): I10 - Essential (primary) hypertension (7) HLD (hyperlipidemia) Current visit: Yes Status: Chronic Qualifiers: Hyperlipidemia type: mixed hyperlipidemia Qualified Code(s): E78.2 - Mixed hyperlipidemia (8) GERD (gastroesophageal reflux disease) Current visit: Yes Status: Chronic Qualifiers: Esophagitis presence: esophagitis presence not specified Qualified Code(s) : K21.9 - Gastro-esophageal reflux disease without esophagitis (9) Diabetes mellitus Current visit: Yes Status: Chronic Accu-Chek blood glucose monitoring with sliding scale insulin as needed. Diabetic diet. 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 Qualifiers: Iron deficiency anemia type: inadequate dietary iron intake Qualified Code( s): D50.8 - Other iron deficiency anemias (11) Depression Current visit: Yes Status: Chronic Continue home medications. Qualifiers: Depression Type: unspecified Qualified Code(s): F32.9 - Major depressive disorder, single episode, unspecified Internal Medicine - H&P: HPI Chief complaint: Abdominal pain Admitted From: Emergency Dept Plans for Post Hospital Care: Transfer [facility] History of present illness: Ms. Villalobos is a 81 year old female with history of hypertension, diabetes, chronic kidney disease, recent closed left ankle fracture, he sent from half-way for evaluation of abdominal pain. Patient does have underlying dementia and has poor insight into her current medical condition provides limited history. History is also obtained from review of previous medical records and from discussing with the emergency room physician. Patient reports right upper quadrant abdominal pain, nonradiating, intermittent, ongoing for at least the last 2 weeks. She reports some nausea and vomiting yesterday, no diarrhea, fever or chills. Her pain is not related to food intake or posture. She does not report associated abdominal distention or shortness of breath or cough. She is unable to mention if she has been having leg swelling or chest pain. She is noted to have poor functional status as she cannot ambulate far and has only a limited participation in physical therapy, she is mostly bed and wheelchair bound. Past Med Surg Social Fam HX - Past Medical History Medical history: cancer (History of right breast cancer status post lumpectomy) , CVA, dementia, diabetes, GERD, hyperlipidemia, hypertension, renal disease Psychiatric history: anxiety, depression - Past Surgical History Surgical History: knee replacement (Right total knee replacement), orthopedic, other (Back surgery in April 2016), other (Tonsillectomy, Lumpectomy on right breast) - Social History Smoking Status: Never smoker Smokeless Tobacco Status: No Alcohol use: none Drug use: none Occupational status: retired Current living situation: ECF Activity Level: Wheelchair bound Recent Out of Country Travel Within the Last 8 Weeks: No Exposure or Possible Exposure to Illness During Travel: No - Family History Father Family Member Ethnicity: Non- Living Status: Hx Family Cardiac Disorders: Yes ([place], HD) Hx Family Endocrine Disorder: Yes (DM) Mother Family Member Ethnicity: Non- Living Status: Hx Family Endocrine Disorder: Yes (DM) Sister Family Member Ethnicity: Non- Living Status: Still Living Hx Family Endocrine Disorder: Yes (DM) Internal Medicine - H&P: Meds Atorvastatin [Lipitor] 40 mg PO DAILY 12/13/14 [History] Citalopram Hydrobromide [Celexa] 20 mg PO DAILY 12/13/14 [History] Aspirin/Dipyridamole [Aggrenox 25 mg-200 mg Capsule] 1 cap PO BID 04/23/16 [ History] Carvedilol [Coreg] 25 mg PO BID 04/23/16 [History] Potassium Chloride [Klor-Con Sprinkle] 10 meq PO BID 04/23/16 [History] Quetiapine Fumarate [Seroquel] 25 mg PO HS 04/23/16 [History] Sertraline [Zoloft] 50 mg PO DAILY 04/23/16 [History] Furosemide [Lasix] 20 mg PO BID 10/20/16 [History] Memantine HCl 10 mg PO DAILY 10/20/16 [History] Spironolactone [Aldactone] 25 mg PO BID 10/20/16 [History] clonazePAM [Klonopin] 1 mg PO HS 10/20/16 [History] Docusate [Colace] 100 mg PO BID #0 10/26/16 [Rx] Ferrous Gluconate 324 mg PO DAILY #30 10/26/16 [Rx] Glucagon, Human Recombinant [Glucagen] 1 mg IM ONCE PRN vial 10/26/16 [Rx] Insulin LISPRO [HumaLOG] 0 units SQ HS vial 10/26/16 [Rx] Insulin LISPRO [HumaLOG] 0 units SQ TIDAC vial 10/26/16 [Rx] Omeprazole [PriLOSEC] 40 mg PO DAILY@0630 10/26/16 [Rx] Ondansetron [Zofran] 4 mg IVP Q8HR PRN vial 10/26/16 [Rx] amLODIPine [Norvasc] 10 mg PO DAILY #60 tab 10/26/16 [Rx] hydrALAZINE [HydrALAZINE] 20 mg IVP Q6HR PRN vial 10/26/16 [Rx] hydrALAZINE [HydrALAZINE] 50 mg PO Q6HR tab 10/26/16 [Rx] Levofloxacin [Levaquin] 500 mg PO DAILY #7 tablet 12/07/16 [Rx] 3 Allergy/AdvReac Type Severity Reaction Status Date / Time codeine Allergy Rash Verified 02/24/15 06:48 Penicillins Allergy Rash Verified 02/24/15 06:48 propoxyphene Allergy Rash Verified 10/20/16 10:39 All Systems PM: A 10-system review of systems was performed and is negative for pertinent findings except as documented above in the HPI. - Constitutional Constitutional: chills - EENT Eyes: no change in vision, no discharge, no pain, no photophobia Ears: no ear discharge, no ear pain, no tinnitus Nose, mouth and throat: no dysphagia, no nasal discharge, no neck pain, no sore throat - Cardiovascular Cardiovascular ROS IM: chest pain - Respiratory Respiratory: no cough, no dyspnea, no wheezing, no excessive phlegm production - Gastrointestinal Gastrointestinal: abdominal pain, nausea - Genitourinary Genitourinary: no change in urinary stream, no dysuria, no flank pain, no hematuria - Musculoskeletal Musculoskeletal ROS IM: no numbness, no tingling - Integumentary Integumentary IM: no rash, no unusual bruising - Neurological Neurological ROS: no confusion, no convulsions, no focal weakness, no numbness, no tingling, no tremor(s) - Hematologic/Lymphatic Hematologic/Lymphatic: no easy bruising - Constitutional Vitals: Temp Pulse Resp BP Pulse Ox 99.1 F 80 18 163/89 95 12/22/16 14:40 12/22/16 17:00 12/22/16 17:00 12/22/16 17:00 12/22/16 17:00 General appearance: Present: mild distress, A&O X 3, answers questions appropriately - Respiratory Respiratory exam: Present: decreased breath sounds (At bilateral bases), CTAB. Absent: accessory muscle use, rales, rhonchi, wheezes - Cardiovascular Cardiovascular exam: Present: RRR, +S1, +S2. Absent: diastolic murmur, gallop, rubs, systolic murmur - GI/Abdominal GI/Abdominal exam: Present: normal bowel sounds, soft (Nontender), no peritoneal signs. Absent: distended, tenderness - Extremities Exam Extremities exam: Present: pedal edema (Trace dependent pedal edema bilaterally) , warm, radial pulses palpable and symmetrical. Absent: calf tenderness, cyanotic - Neurological Exam Neurological exam: Present: CN II-XII intact, oriented X3, no focal deficits ( Diffuse weakness bilateral LE). Absent: pronater drift, facial droop, speech deficit - Skin Skin exam: Present: dry, intact Internal Med - H&P Results - Labs CBC & Chem 7: 12/22/16 14:59 12/22/16 15:30 Labs: Short CBC 12/22/16 Range/Units 14:59 WBC 4.6 (4.3-11.1) K/mcL Hgb 9.9 L (11.5-15.4) g/dL Hct 31.7 L (35.3-44.9) % Plt Count 194 (140-400) K/mcL Neutrophils # 3.6 (1.6-8.9) K/mcL BMP 12/22/16 15:30 Sodium 138 Potassium 3.4 L Chloride 105 Carbon Dioxide 25 BUN 18 Creatinine 1.33 H Glucose 97 Calcium 9.6 Cardiac Enzymes 12/22/16 Range/Units 14:59 Troponin I 0.03 (0-0.03) ng/mL Liver Function 12/22/16 Range/Units 15:30 Total Bilirubin 0.6 (0.2-1.2) mg/dL Direct Bilirubin 0.3 (0.0-0.5) mg/dL AST 13 (5-34) Units/L ALT 6 (0-55) Units/L Alkaline Phosphatase 51 (38-126) Units/L Albumin 2.5 L (3.5-5.0) g/dL Urine 12/22/16 Range/Units 14:45 Urine Color Yellow (Yellow) Urine Clarity Clear (Clear) Urine pH 7.0 (5.0-8.0) pH Units Ur Specific [place] 1.016 (1.010-1.025) Urine Protein >=300 H (Neg-Trace) mg/dL Urine Glucose (UA) Normal (Normal) mg/dL - EKG Data -: EKG Interpreted by Myself EKG shows normal: sinus rhythm Rate: normal - Impressions ITS Impressions Abdomen/Pelvis CT 12/22/16 14:44 IMPRESSION: 1. Worsening moderate to large right an unchanged moderate left pleural effusions. 2. Unchanged moderate anasarca and small amount of presacral edema due to volume overload. D/ / Francisco Newman MD / Francisco Newman MD Interpreting Provider: Francisco Newman MD Chest X-Ray 12/22/16 15:54 IMPRESSION: Bilateral pleural effusions and bibasilar airspace disease, likely increased since prior study. D/ / Kristie Zhong Cha, MD / Kristie Zhong Cha, MD Interpreting Provider: Kristie Zhong Cha, MD
[2016-12-22] MEDS ORDERED: D5% in Water 1,000 ML IVC PRN (18:16)
[2016-12-22] MEDS ORDERED: Dextrose Gel 15 GM PO PRN ×2 (18:16)
[2016-12-22] MEDS ORDERED: *HR* Dextrose 50 % in Water (Syg) 50 ML SYRINGE IVP PRN (18:16)
[2016-12-22] MEDS: Furosemide 20 MG/2 ML VIAL IVP SCH (21:15)
[2016-12-22] MEDS: hydrALAZINE 25 MG TABLET PO SCH (21:15)
[2016-12-22] MEDS: *HR* Heparin 5,000 UNIT/ML VIAL SQ SCH (21:16)
[2016-12-22] MEDS: clonazePAM 1 MG TABLET PO SCH (21:16)
[2016-12-22] MEDS: Spironolactone 25 MG TABLET PO SCH (21:16)
[2016-12-22] MEDS: Insulin LISPRO 300 UNITS/3 ML VIAL SQ SCH (21:17)
[2016-12-22] MEDS: amLODIPine 5 MG TABLET PO SCH (21:18)
[2016-12-23 00:44] LABS: Basophils % 0.5 %; Eosinophils # 0.1 K/mcL (0.0-0.6); Eosinophils % 1.4 %; Hematocrit 27.1 % (35.3-44.9); Hemoglobin 8.6 g/dL (11.5-15.4); Immature Granulocytes % 0.5 % (0-4); Lymphocytes # 0.7 K/mcL (0.6-4.6); Mean Corpuscular HGB Conc 31.7 g/dL (31.6-35.5); Mean Corpuscular Hemoglobin 29.8 pg (28.0-33.3); Mean Corpuscular Volume 93.8 fL (83.0-100.0); Mean Platelet Volume 9.4 fL (9.4-12.4); Monocytes # 0.4 K/mcL (0.0-1.3); Monocytes % 10.3 %; Platelet Count 152 K/mcL (140-400); Red Blood Count 2.89 M/mcL (3.82-4.97); Red Cell Distribution Width 13.2 % (11.5-14.5); Segmented Neutrophils % 70.3 %
[2016-12-23 00:55] LABS: Calcium 9.3 mg/dL (8.6-10.8); Magnesium 1.8 mg/dL (1.6-2.6); Potassium 3.7 mEq/L (3.5-4.5)
[2016-12-23] MEDS: hydrALAZINE 25 MG TABLET PO SCH ×4 (04:33→17:40)
[2016-12-23] MEDS: *HR* Heparin 5,000 UNIT/ML VIAL SQ SCH ×2 (05:13→17:38)
[2016-12-23] MEDS: Furosemide 20 MG/2 ML VIAL IVP SCH ×2 (09:05→22:17)
[2016-12-23] MEDS: Spironolactone 25 MG TABLET PO SCH ×2 (09:06→22:18)
[2016-12-23] MEDS: amLODIPine 5 MG TABLET PO SCH (09:06)
[2016-12-23] MEDS: Insulin LISPRO 300 UNITS/3 ML VIAL SQ SCH ×4 (09:09→22:18)
--- NOTE | 2016-12-23 10:07 | Nephrology Consult Note ---
Date of Encounter: 12/23/16 Time of Encounter: 09:45 Assessment and Plan (1) Renal insufficiency Current Visit: Yes Status: Acute CKD 3 with history nephrotic range proteinuria. Creat at baseline. Will obtain 24 urine protein. Avoid nephrotoxins. Will monitor. ECHO and IR thorocentesis scheduled for tomorrow. History of Present Illness - Reason for Consult Chronic Kidney Disease - History of Present Illness Ms. Villalobos is a 81 year old female known to practice with stage 3 CKD and nephrotic proteinuria initially diagnosed during October hospital stay, creatinine at that time 1.5. Renal US at that time indicates underlying chronic renal disease, 24 hour urine protein 1346 mg/day. Thought to have clinical picture of GN, however patient declined a renal biopsy for definitive diagnosis. Other PMH- cancer, GERD, hyperlipidemia, hypertension, breast surgery, knee replacement, anxiety, depression. Ms. Villalobos presented to ER on Dec 22 with complaints of mid epigastric abdominal pain and nausea with one episode of emesis. She denied diarrhea. CT abd/pelvis-generalized anasarca of abdomen, bilateral pleural effusions. This morning she states no epigastric pain or nausea. Eating breakfast, son at bedside. Hospitalist in, states will obtain ECHO and will have IR do thorocentesis tomorrow. Past Med Surg Social Fam HX - Past Medical History Medical history: cancer, CVA, dementia, diabetes, GERD, hyperlipidemia, hypertension, renal disease Psychiatric history: anxiety, depression - Past Surgical History Surgical History: knee replacement, orthopedic, other, other - Social History Smoking Status: Never smoker Smokeless Tobacco Status: No Alcohol use: none Drug use: none - Family History Father Family Member Ethnicity: Non- Living Status: Age at : 83 Cause of : [place] Hx Family Cardiac Disorders: Yes Hx Family Respiratory Disorders: Yes Hx Family Cancer: Yes Hx Family GI Disorders: Yes Hx Family Genitourinary Disorders: Yes Hx Family Endocrine Disorder: No Hx Family Musculoskeletal Disorders: No Hx Family Neuromuscular Disorders: No Hx Family Neurologic Disorders: No Hx Family HEENT Disorders: No Hx Family Autoimmune Disorders: No Hx Family Reproductive Disorders: No Hx Family Psychosocial Disorders: No Hx Family Medical Disorders: No Mother Age: 66 Family Member Ethnicity: Non- Living Status: Age at : 66 Cause of : Diabetes Hx Family Cardiac Disorders: No Hx Family Respiratory Disorders: No Hx Family Cancer: Yes Hx Family GI Disorders: No Hx Family Genitourinary Disorders: Yes Hx Family Endocrine Disorder: No Hx Family Musculoskeletal Disorders: Yes Hx Family Neuromuscular Disorders: No Hx Family Neurologic Disorders: No Hx Family HEENT Disorders: No Hx Family Autoimmune Disorders: No Hx Family Reproductive Disorders: No Hx Family Psychosocial Disorders: No Hx Family Medical Disorders: No Sister Family Member Ethnicity: Non- Living Status: Still Living Hx Family Endocrine Disorder: Yes (DM) Medications and Allergies Atorvastatin [Lipitor] 40 mg PO DAILY 12/13/14 [History] Citalopram Hydrobromide [Celexa] 20 mg PO DAILY 12/13/14 [History] Aspirin/Dipyridamole [Aggrenox 25 mg-200 mg Capsule] 1 cap PO BID 04/23/16 [ History] Carvedilol [Coreg] 25 mg PO BID 04/23/16 [History] Quetiapine Fumarate [Seroquel] 25 mg PO HS 04/23/16 [History] Sertraline [Zoloft] 50 mg PO DAILY 04/23/16 [History] Furosemide [Lasix] 20 mg PO DAILY 10/20/16 [History] Memantine HCl 10 mg PO DAILY 10/20/16 [History] clonazePAM [Klonopin] 1 mg PO HS 10/20/16 [History] Docusate [Colace] 100 mg PO BID #0 10/26/16 [Rx] Ferrous Gluconate 324 mg PO DAILY #30 10/26/16 [Rx] Glucagon, Human Recombinant [Glucagen] 1 mg IM ONCE PRN vial 10/26/16 [Rx] amLODIPine [Norvasc] 10 mg PO DAILY #60 tab 10/26/16 [Rx] hydrALAZINE [HydrALAZINE] 50 mg PO Q6HR tab 10/26/16 [Rx] Lactose-Reduced Food [Ensure Original] 1 bottle PO DAILY 12/23/16 [History] OxyCODONE Immed Rel [Roxicodone 5 MG] 5 mg PO Q8HR 12/23/16 [History] OxyCODONE Immed Rel [Roxicodone 5 MG] 5 mg PO TID PRN 12/23/16 [History] Polyethylene Glycol 3350 [MiraLAX] 17 gm PO BID 12/23/16 [History] glipiZIDE [Glucotrol] 5 mg PO BID 12/23/16 [History] 3 Allergy/AdvReac Type Severity Reaction Status Date / Time codeine Allergy Rash Verified 02/24/15 06:48 Penicillins Allergy Rash Verified 02/24/15 06:48 propoxyphene Allergy Rash Verified 10/20/16 10:39 Review of Systems All Systems: reviewed and no additional remarkable complaints except as stated Exam - Vital Signs Vital signs: Initial Vital Signs Temp Pulse Resp BP Pulse Ox 99.1 F 81 18 191/73 93 12/22/16 14:40 12/22/16 14:40 12/22/16 14:40 12/22/16 14:40 12/22/16 14:40 Vital Signs - Last 8 Hours Temp Pulse Resp BP Pulse Ox 12/23/16 07:05 97.6 F 79 18 163/64 95 12/23/16 03:47 98.6 F 73 16 178/65 92 Intake and Output 12/22/16 12/23/16 12/23/16 23:59 07:59 15:59 Intake Total 0 / 0 500 / 500 Output Total 1125 / 1125 900 / 900 Balance -1125 / -1125 -400 / -400 Intake: Oral 0 / 0 500 / 500 Output: Catheter 1125 / 1125 900 / 900 Other: Weight 63.7 kg 63.9 kg Blood Glucose* 106 83 Patient Weight 12/23/16 23:59 Weight 63.9 kg - General Appearance General appearance: well-developed, well-nourished, appears started age EENT: mucous membranes moist Neck: no JVD Additional Comments: diminished Gastrointestinal: normoactive bowel sounds, no tenderness, no guarding Integumentary: warm and dry Neurologic: alert and oriented x3 Psychiatric: mood/affect appropriate, cooperative Results - Lab Results 12/23/16 00:21 12/23/16 00:21 Most recent lab results Calcium 9.3 mg/dL (8.6-10.8) 12/23/16 00:21 Magnesium 1.8 mg/dL (1.6-2.6) 12/23/16 00:21 Consult Discharge Plan - Plan Referrals: Braden Cintron MD [Primary Care Provider] -
--- NOTE | 2016-12-23 10:48 | Internal Med Progress Note ---
Date of Encounter: 12/23/16 Time of Encounter: 10:48 - Assessment and plan (1) HTN (hypertension) Current Visit: Yes Status: Chronic Assessment and plan: Controlled, continue current meds Qualifiers: Hypertension type: essential hypertension Qualified Code(s): I10 - Essential (primary) hypertension (2) HLD (hyperlipidemia) Current Visit: Yes Status: Chronic Assessment and plan: Continue home meds Qualifiers: Hyperlipidemia type: mixed hyperlipidemia Qualified Code(s): E78.2 - Mixed hyperlipidemia (3) Closed left ankle fracture Current Visit: Yes Status: Acute Assessment and plan: OOB with assist PTOT eval after thoracentensis Qualifiers: Encounter type: subsequent encounter Fracture healing: with routine healing Qualified Code(s): S82.892D - Other fracture of left lower leg, subsequent encounter for closed fracture with routine healing (4) Diabetes mellitus Current Visit: Yes Status: Chronic Assessment and plan: FS acceptable, continue current management Qualifiers: Diabetes mellitus type: type 2 Diabetes mellitus complication status: with kidney complications Diabetes mellitus complication detail: with chronic kidney disease Diabetes mellitus lobsterman insulin use: with shelter use Chronic kidney disease stage: stage 3 (moderate) Qualified Code(s): E11.22 - Type 2 diabetes mellitus with diabetic chronic kidney disease; N18.3 - Chronic kidney disease, stage 3 (moderate); Z79.4 - MCFP (current) use of insulin (5) Nephrotic range proteinuria Current Visit: Yes Status: Chronic Assessment and plan: Renal following patient had refused biopsy as out-patient Continue diuresis Keep I/O Keep Kunz for 24hr urine collection per renal, and discontinue afterwards (6) Bilateral pleural effusion Current Visit: Yes Status: Chronic Assessment and plan: Possibly from fluid overload/anasarca IR for thoracentensis a.m NPO from [place] patient's respiratory status is acceptable (7) Congestive heart failure Current Visit: Yes Status: Chronic Assessment and plan: ECHO noted for hyperdynamic LVEF 75%, moderately dilated LA, Mild LVDD, moderate Pulm HTN, pericardial effusion without tamponade. No WMA Continue daily weights/lasix IV/I/O IR for thoracentensis and possibly paracentensis Qualifiers: Congestive heart failure type: diastolic Congestive heart failure chronicity: unspecified congestive heart failure chronicity Qualified Code(s) : I50.30 - Unspecified diastolic (congestive) heart failure (8) Anxiety Current Visit: Yes Status: Chronic Assessment and plan: continue home meds (9) Iron (Fe) deficiency anemia Current Visit: Yes Status: Chronic Assessment and plan: Continue home meds Qualifiers: Iron deficiency anemia type: inadequate dietary iron intake Qualified Code( s): D50.8 - Other iron deficiency anemias (10) Depression Current Visit: Yes Status: Chronic Assessment and plan: Increase Zoloft Qualifiers: Depression Type: unspecified Qualified Code(s): F32.9 - Major depressive disorder, single episode, unspecified (11) CKD (chronic kidney disease) stage 3, GFR 30-59 ml/min Current Visit: Yes Status: Chronic Assessment and plan: Cr is stable (12) Anasarca associated with disorder of kidney Current Visit: Yes Status: Acute Assessment and plan: Patient with ascites, pleural and pericardial effusion, and trace edema with underlying nephrotic range proteinuria Continue diuresis Renal is following (13) DVT prophylaxis Current Visit: Yes Status: Acute Assessment and plan: Heparin SQ (14) Malnutrition Current Visit: Yes Status: Chronic Assessment and plan: Nutrition consult Qualifiers: Malnutrition type: protein-calorie malnutrition Protein-calorie malnutrition severity: unspecified severity Qualified Code(s): E46 - Unspecified protein-calorie malnutrition - Subjective Interval history: Seen at bedside with son 81 F with recent L ankle fracture, SNF resident She has a PMH of anxiety and depression, CKD III Nephropathy with proteinuria, HTN, HLD She denies new complains But endorsed her depression is worse, in addition, she has a poor appetite her son states she has not been participating in physical therapy and not been herself She is mostly quiet through the conversation and defers all decisions to her son - Constitutional Vitals: Temp Pulse Resp BP Pulse Ox 97.6 F 79 18 163/64 95 12/23/16 07:05 12/23/16 07:05 12/23/16 07:05 12/23/16 07:05 12/23/16 07:05 General appearance: Present: A&O X 3, no acute distress, answers questions appropriately - Head Head exam: Present: atraumatic, normocephalic - Eye Eye exam: Present: PERRL, conjuntiva pink, sclera anicteric Pupils: Present: PERRL - Neck Neck exam general surgery: Present: supple, trachea midline. Absent: lymphadenopathy - Respiratory Additional comments: Decreased air entry at the lung bases - Cardiovascular Cardiovascular exam: Present: RRR, +S1, +S2. Absent: diastolic murmur, gallop, rubs, systolic murmur - GI/Abdominal GI/Abdominal exam: Present: normal bowel sounds, soft, no peritoneal signs. Absent: distended, tenderness - Extremities Exam Extremities exam: Present: pedal edema (trace), warm, radial pulses palpable and symmetrical. Absent: calf tenderness, cyanotic - Neurological Exam Neurological exam: Present: alert, CN II-XII intact, oriented X3, no focal deficits. Absent: pronater drift, facial droop, speech deficit - Skin Skin exam: Present: dry Internal Medicine: Result - Labs CBC & Chem 7: 12/23/16 00:21 12/23/16 00:21 Labs: Short CBC 12/23/16 Range/Units 00:21 WBC 4.3 (4.3-11.1) K/mcL Hgb 8.6 L (11.5-15.4) g/dL Hct 27.1 L (35.3-44.9) % Plt Count 152 (140-400) K/mcL Neutrophils # 3.0 (1.6-8.9) K/mcL BMP 12/23/16 00:21 Sodium 139 Potassium 3.7 Chloride 106 Carbon Dioxide 27 BUN 18 Creatinine 1.36 H Glucose 83 Calcium 9.3 Cardiac Enzymes 12/23/16 12/23/16 Range/Units 00:21 05:51 Troponin I 0.05 H* 0.03 (0-0.03) ng/mL Consult Discharge Plan - Plan Referrals: Braden Cintron MD [Primary Care Provider] -
[2016-12-23] MEDS: clonazePAM 1 MG TABLET PO SCH (22:17)
[2016-12-24] MEDS: hydrALAZINE 25 MG TABLET PO SCH ×4 (00:05→17:07)
[2016-12-24 01:57] LABS: Basophils % 0.2 %; Eosinophils # 0.1 K/mcL (0.0-0.6); Eosinophils % 2.2 %; Hematocrit 26.9 % (35.3-44.9); Hemoglobin 8.5 g/dL (11.5-15.4); Immature Granulocytes % 0.2 % (0-4); Lymphocytes # 0.7 K/mcL (0.6-4.6); Lymphocytes % 17.3 %; Mean Corpuscular HGB Conc 31.6 g/dL (31.6-35.5); Mean Corpuscular Hemoglobin 29.4 pg (28.0-33.3); Mean Corpuscular Volume 93.1 fL (83.0-100.0); Monocytes # 0.4 K/mcL (0.0-1.3); Monocytes % 10.3 %; Neutrophils # 2.9 K/mcL (1.6-8.9); Platelet Count 141 K/mcL (140-400); Red Blood Count 2.89 M/mcL (3.82-4.97); Red Cell Distribution Width 13.2 % (11.5-14.5); Segmented Neutrophils % 69.8 %
[2016-12-24 02:11] LABS: Calcium 9.5 mg/dL (8.6-10.8); Potassium 3.9 mEq/L (3.5-4.5)
[2016-12-24] MEDS: *HR* Heparin 5,000 UNIT/ML VIAL SQ SCH ×2 (06:32→17:06)
[2016-12-24] MEDS: Insulin LISPRO 300 UNITS/3 ML VIAL SQ SCH ×4 (07:42→20:25)
[2016-12-24] MEDS: Spironolactone 25 MG TABLET PO SCH ×2 (07:49→20:19)
[2016-12-24] MEDS: amLODIPine 5 MG TABLET PO SCH (07:49)
[2016-12-24] MEDS: Furosemide 20 MG/2 ML VIAL IVP SCH (07:49)
--- NOTE | 2016-12-24 09:08 | Nephrology Progress Note ---
Date of Encounter: 12/24/16 Time of Encounter: 09:07 - Assessment and Plan (1) CKD (chronic kidney disease) stage 3, GFR 30-59 ml/min Current Visit: Yes Status: Chronic Patient has stage III chronic kidney disease with proteinuria. Possibly related to diabetic nephropathy. Patient had been offered a renal biopsy as outpatient but decided to proceed with conservative treatment and monitor her renal function. We will recheck another 24-hour urine for protein. We will get her started on an IRIS inhibitor. She currently scheduled to undergo a thoracentesis. (2) Benign hypertension with CKD (chronic kidney disease) stage III Current Visit: Yes Status: Acute (3) Bilateral pleural effusion Current Visit: Yes Status: Chronic Subjective Interval history: Patient reports overall she is feeling better. She is having less GI distress. From a renal perspective her renal function is slightly worse than yesterday but still within her usual baseline. Previous creatinines range from 1.5-2.4. Previous 24-hour urine protein was 1346 mg back in October. Echocardiogram shows an EF of 75% as well as moderate pulmonary hypertension. Blood pressure is on the high side. Objective - Vital Signs Vital signs: Vital Signs Temp Pulse Resp BP Pulse Ox 12/24/16 07:56 94 12/24/16 07:09 98.6 F 74 18 191/67 94 12/24/16 03:45 98.6 F 70 16 190/69 93 12/23/16 23:57 99.3 F 69 16 175/62 94 12/23/16 19:47 98.4 F 67 16 174/83 94 12/23/16 15:11 98.3 F 69 16 138/66 93 12/23/16 11:45 98.9 F 67 18 165/67 93 Intake and Output 12/23/16 12/24/16 12/24/16 23:59 07:59 15:59 Intake Total 0 / 0 0 / 0 Output Total 550 / 550 800 / 800 Balance -550 / -550 -800 / -800 Intake: Oral 0 / 0 0 / 0 Output: Urine 0 / 0 Catheter 550 / 550 800 / 800 Other: Weight 64.4 kg Blood Glucose* 151 103 Patient Weight 12/24/16 23:59 Weight 64.4 kg - General Appearance Exam: Patient appears alert and oriented. She is in no acute distress. Lungs clear to auscultation. Heart regular rate and rhythm. Abdomen is soft. There is no guarding tenderness noted rigidity. There is minimal lower extremity swelling. - Lab 12/24/16 01:45 12/24/16 01:45 Most recent lab results Calcium 9.5 mg/dL (8.6-10.8) 12/24/16 01:45 Magnesium 1.8 mg/dL (1.6-2.6) 12/23/16 00:21 Consult Discharge Plan - Plan Referrals: Braden Cintron MD [Primary Care Provider] -
[2016-12-24] MEDS ORDERED: Ferumoxytol 510 MG in 0.9 % Sodium Chloride 100 ML IVPB ONE (10:02)
--- NOTE | 2016-12-24 11:53 | Internal Med Progress Note ---
<Jairo Seals - Last Filed: 12/24/16 16:49> Date of Encounter: 12/24/16 - Assessment and plan (1) HTN (hypertension) Current Visit: Yes Status: Chronic Qualifiers: Hypertension type: essential hypertension Qualified Code(s): I10 - Essential (primary) hypertension (2) HLD (hyperlipidemia) Current Visit: Yes Status: Chronic Qualifiers: Hyperlipidemia type: mixed hyperlipidemia Qualified Code(s): E78.2 - Mixed hyperlipidemia (3) Closed left ankle fracture Current Visit: Yes Status: Acute Qualifiers: Encounter type: subsequent encounter Fracture healing: with routine healing Qualified Code(s): S82.892D - Other fracture of left lower leg, subsequent encounter for closed fracture with routine healing (4) Diabetes mellitus Current Visit: Yes Status: Chronic Qualifiers: Diabetes mellitus type: type 2 Diabetes mellitus complication status: with kidney complications Diabetes mellitus complication detail: with chronic kidney disease Diabetes mellitus superintendent [employer] insulin use: with superintendent [employer] use Chronic kidney disease stage: stage 3 (moderate) Qualified Code(s): E11.22 - Type 2 diabetes mellitus with diabetic chronic kidney disease; N18.3 - Chronic kidney disease, stage 3 (moderate); Z79.4 - long term care social worker (current) use of insulin (5) Nephrotic range proteinuria Current Visit: Yes Status: Chronic (6) Bilateral pleural effusion Current Visit: Yes Status: Chronic (7) Congestive heart failure Current Visit: Yes Status: Chronic Qualifiers: Congestive heart failure type: diastolic Congestive heart failure chronicity: unspecified congestive heart failure chronicity Qualified Code(s) : I50.30 - Unspecified diastolic (congestive) heart failure (8) Anxiety Current Visit: Yes Status: Chronic (9) Iron (Fe) deficiency anemia Current Visit: Yes Status: Chronic Qualifiers: Iron deficiency anemia type: inadequate dietary iron intake Qualified Code( s): D50.8 - Other iron deficiency anemias (10) Depression Current Visit: Yes Status: Chronic Qualifiers: Depression Type: unspecified Qualified Code(s): F32.9 - Major depressive disorder, single episode, unspecified (11) CKD (chronic kidney disease) stage 3, GFR 30-59 ml/min Current Visit: Yes Status: Chronic (12) Anasarca associated with disorder of kidney Current Visit: Yes Status: Acute (13) DVT prophylaxis Current Visit: Yes Status: Acute (14) Malnutrition Current Visit: Yes Status: Chronic Qualifiers: Malnutrition type: protein-calorie malnutrition Protein-calorie malnutrition severity: unspecified severity Qualified Code(s): E46 - Unspecified protein-calorie malnutrition - Constitutional Vitals: Temp Pulse Resp BP Pulse Ox 98.5 F 65 18 147/66 93 12/24/16 15:32 12/24/16 15:32 12/24/16 15:32 12/24/16 15:32 12/24/16 15:32 Internal Medicine: Result - Labs CBC & Chem 7: 12/24/16 01:45 12/24/16 01:45 Labs: Short CBC 12/24/16 Range/Units 01:45 WBC 4.2 L (4.3-11.1) K/mcL Hgb 8.5 L (11.5-15.4) g/dL Hct 26.9 L (35.3-44.9) % Plt Count 141 (140-400) K/mcL Neutrophils # 2.9 (1.6-8.9) K/mcL BMP 12/24/16 01:45 Sodium 140 Potassium 3.9 Chloride 103 Carbon Dioxide 31 H BUN 18 Creatinine 1.60 H Glucose 123 H Calcium 9.5 Liver Function 12/24/16 Range/Units 11:42 Total Bilirubin 0.6 (0.2-1.2) mg/dL Direct Bilirubin 0.3 (0.0-0.5) mg/dL AST 13 (5-34) Units/L ALT 6 (0-55) Units/L Alkaline Phosphatase 49 (38-126) Units/L Albumin 2.5 L (3.5-5.0) g/dL - Impressions Impressions Thoracentesis Ultrasound 12/24/16 00:00 IMPRESSION: Successful ultrasound guided right thoracentesis. D/ / Jarrell Harris MD / Jarrell Harris MD Interpreting Provider: Jarrell Harris MD Chest X-Ray 12/24/16 11:15 IMPRESSION: 1. Persistent though decreased right pleural effusion status post thoracentesis with no more than small volume. Associated decrease in underlying right basilar atelectasis. No associated pneumothorax. 2. Unchanged small moderate left pleural effusion and underlying left basilar atelectasis. 3. Pulmonary vascular congestion. D/ / Rohit Thornton MD / Rohit Thornton MD Interpreting Provider: Rohit Thornton MD Consult Discharge Plan - Plan Referrals: Braden Cintron MD [Primary Care Provider] - - Attending Attestation I have independently seen and examined this patient on 12/24/16 and discussed plan of care with patient and residents 81 F with recent L ankle fracture, SNF resident She has a PMH of anxiety and depression, CKD III Nephropathy with proteinuria, HTN, HLD She denies new complains She is awaiting thoracentensis at the time of review Physical Exam: Blood pressure elevated but patient is extremely anxious. She is afebrile and not in distress. HEENT: Not cyanotic, not pale. Chest: Anterior auscultation clear bilaterally. Heart sounds S1, S2 only, no m/g/r. Abdomen is soft, not tender, not distended. BOwel sounds are present in all quadrants. Extremities: L ankle in brace, no pedal edema Labs and Imaging reviewed: CBC at baseline, BUN elevated, CR elevated compared to yesterdays but still within patient's baseline A/P #1 Anasarca #2 Nephrotic range proteinuria #3 CKD III #4 CHFE #5 Mild malnutrition #6 HTN #7 Pleural effusion #8 Pericardial effusion #9 Depression and anxiety -For thoracentensis today-send fluid for culture/cytology/culture/LDH/Protein -Decrease lasix -No tamponade on ECHO -Cardio-respiratoty status is stable -Continue current management Rest of details as in resident physician's documentation <Tisha Sepulveda - Last Filed: 12/24/16 20:31> Date of Encounter: 12/24/16 Time of Encounter: 10:10 - Assessment and plan (1) Anasarca associated with disorder of kidney Current Visit: Yes Status: Acute Assessment and plan: Patient with ascites, pleural and pericardial effusion, and trace edema with underlying nephrotic range proteinuria. Continue diuresis. Nephro is following. Plan: - Thorocentesis today, will f/u pleural fluid analysis. - (2) HTN (hypertension) Current Visit: Yes Status: Chronic Assessment and plan: Essential chronic hypertension. Patient will be continued on her home medications are Norvasc, carbon dioxide hydralazine, and spironolactone at home doses. Patient had a high blood pressure of 191/69 this morning and proceeded to go down after her bilateral pleural effusion to 128/69 therefore was most likely due to stress. Patient's hydralazine dose was held in the early afternoon but was continued for the later dose in the evening as her blood pressure continued to rise back up. Plan: - Norvasc 10 mg by mouth daily - Carbon dioxide 25 mg by mouth twice a day - Hydralazine 50 mg by mouth every 6 hours - add Lisinopril 10 mg by mouth daily per nephrology - Spironolactone 25 mg PO BID Qualifiers: Hypertension type: essential hypertension Qualified Code(s): I10 - Essential (primary) hypertension (3) Bilateral pleural effusion Current Visit: Yes Status: Chronic Assessment and plan: Most likely due to anasarca or possible fluid overload. IR performed a thoracentensis today and aspirated 1400 mL of serous fluid off the right. Repeat CXR showed "persistent though decreased right pleural effusion status postthoracentesis with no more than small volume. Associated decrease in underlying right basilar atelectasis. No associated pneumothorax. Unchanged small moderate left pleural effusion and underlying left basilaratelectasis. Pulmonary vascular congestion". Will await pleural fluid analysis. Plan: -Pleural fluid analysis pending (4) Nephrotic range proteinuria Current Visit: Yes Status: Chronic Assessment and plan: Urinalysis showed proteinuria. Nephrology was consulted and believes possible diabetic nephropathy but unable to obtain defiinitive diagnosis as patient has refused biopsy as out-patient. Patient's previous 24-hour urine protein was 1346 mg back in October. Will obtain another 24 hr urine protein. Plan: - 24 hr protein then can d/c ortiz - Continue diuresis - monitor I/O - Add Lisinopril 20mg PO QD (5) Diabetes mellitus Current Visit: Yes Status: Chronic Assessment and plan: Patient on Accu-Cheks with sliding scale for meals. On a renal diet. Qualifiers: Diabetes mellitus type: type 2 Diabetes mellitus complication status: with kidney complications Diabetes mellitus complication detail: with chronic kidney disease Diabetes mellitus superintendent [employer] insulin use: with halfway use Chronic kidney disease stage: stage 3 (moderate) Qualified Code(s): E11.22 - Type 2 diabetes mellitus with diabetic chronic kidney disease; N18.3 - Chronic kidney disease, stage 3 (moderate); Z79.4 - long term care social worker (current) use of insulin (6) Congestive heart failure Current Visit: Yes Status: Chronic Assessment and plan: ECHO noted for hyperdynamic LVEF 75%, moderately dilated LA, Mild LVDD, moderate Pulm HTN, pericardial effusion without tamponade. BNP on presentation 1259. CXR 12/24 still showed pulmonary congestion but will decrease lasix to 20mg IV daily as worsening creatinine most likely due to the Lasix. Plan: -Continue daily weights/I/O - Lasix 20mg IV daily Qualifiers: Congestive heart failure type: diastolic Congestive heart failure chronicity: unspecified congestive heart failure chronicity Qualified Code(s) : I50.30 - Unspecified diastolic (congestive) heart failure (7) Anxiety Current Visit: Yes Status: Chronic Assessment and plan: Continue home med of clonazepam 1 mg by mouth at bedtime. (8) CKD (chronic kidney disease) stage 3, GFR 30-59 ml/min Current Visit: Yes Status: Chronic Assessment and plan: Cr is rising but not past baseline. Nephrology is on board. Decreased Lasix from 20mg BID to 20mg QD. (9) Malnutrition Current Visit: Yes Status: Chronic Assessment and plan: Albumin 2.5. Nutrition consulted Qualifiers: Malnutrition type: protein-calorie malnutrition Protein-calorie malnutrition severity: unspecified severity Qualified Code(s): E46 - Unspecified protein-calorie malnutrition (10) Iron (Fe) deficiency anemia Current Visit: Yes Status: Chronic Assessment and plan: Continue home medication of Ferous sulfate 325mg PO daily. Hemoglobin 8.5, lower than baseline of 11. Qualifiers: Iron deficiency anemia type: inadequate dietary iron intake Qualified Code( s): D50.8 - Other iron deficiency anemias (11) HLD (hyperlipidemia) Current Visit: Yes Status: Chronic Assessment and plan: Continue home medication of Lipitor. Qualifiers: Hyperlipidemia type: mixed hyperlipidemia Qualified Code(s): E78.2 - Mixed hyperlipidemia (12) Closed left ankle fracture Current Visit: Yes Status: Acute Assessment and plan: Patient states that she fell in her kitchen and obtained a left ankle fracture but has not been going to PT for it. Plan: -OOB with assist - PTOT eval after thoracentensis Qualifiers: Encounter type: subsequent encounter Fracture healing: with routine healing Qualified Code(s): S82.892D - Other fracture of left lower leg, subsequent encounter for closed fracture with routine healing (13) Depression Current Visit: Yes Status: Chronic Qualifiers: Depression Type: unspecified Qualified Code(s): F32.9 - Major depressive disorder, single episode, unspecified - Subjective Interval history: Patient is an 81-year-old female presented to the ED complaining of abdominal pain and nausea and was found to have anasarca associated with kidney disease which has resulted in bipolar pleural effusion, ascites, and pericardial effusion. She is not on home oxygen. Today , patient says that her pain in her abdomen is less than it was before and she states that her pain is due to gas. Patient denies nausea, vomiting. Patient is A&Ox3 but has trouble remembering her past medical history and often answered I don't know to questions. She states that she is anxious about the procedure for her lungs. - Constitutional Vitals: Temp Pulse Resp BP Pulse Ox 98.5 F 68 18 128/69 94 12/24/16 11:09 12/24/16 11:09 12/24/16 11:09 12/24/16 11:09 12/24/16 11:09 General appearance: Present: A&O X 3, no acute distress, answers questions appropriately Exam: Constitutional: Alert,flat affect, A&O x4, well nourished, well developed. Head: Normocephalic, atraumatic, normal contour and symmetric, no masses, lesions or scars Heart: Normal, regular rate and rhythm, no murmurs Lungs: NC 3L with no labored breathing or use of accessory muscles, diminished to absent breath sounds in bases, Clear to auscultation, no wheezes, rales, or rhonchi Abdomen: tenderness in RLQ, Soft, nondistended and no masses palpable, bowel sounds present and normal, no guarding or rigidity. Extremities: No clubbing, cyanosis, or edema, radial pulse +2/4, capillary refill <2sec. Skin: Skin warm and dry, no lesions, no rashes, no jaundice Neurologic: Cranial nerves II through XII grossly intact, no focal deficits, strength within normal limits in all extremities Psych: flat affect, Cooperative with exam, good eye contact, cognitive function intact, speech clear, thought process logical, Internal Medicine: Result - Labs CBC & Chem 7: 12/24/16 01:45 12/24/16 01:45 Labs: Short CBC 12/24/16 Range/Units 01:45 WBC 4.2 L (4.3-11.1) K/mcL Hgb 8.5 L (11.5-15.4) g/dL Hct 26.9 L (35.3-44.9) % Plt Count 141 (140-400) K/mcL Neutrophils # 2.9 (1.6-8.9) K/mcL BMP 12/24/16 01:45 Sodium 140 Potassium 3.9 Chloride 103 Carbon Dioxide 31 H BUN 18 Creatinine 1.60 H Glucose 123 H Calcium 9.5
[2016-12-24 13:20] LABS: RBC,Pleural Fluid < 0.002 M/mcL
[2016-12-24 13:43] LABS: LDH,Pleural Fluid 89 Units/L (No Ref Range)
[2016-12-24 13:46] LABS: Appearance of Pleural Fl Clear (Clear); Eosinophils,Pleural Fluid 20.8 %; Lymphocytes,Pleural Fluid 15.1 %
--- NOTE | 2016-12-24 14:16 | IR Procedure Note ---
Date of procedure: 12/24/16 Consent Obtained: Verbal consent, Written consent Timeout: Correct patient and procedure verified, Correct site verified, Time out performed, Skin prep completed Local anesthetic: Lidocaine 1% Indications: pleural effusion Procedure Performed: thoracentesis Site/Technique: right Results/Findings: 1400 mL aspirated, serous fluid Estimated blood loss (cc): 1 Complications: None; Tolerated procedure well Post Procedure Treatment Plan: CXR
[2016-12-24 14:23] LABS: Albumin 2.5 g/dL (3.5-5.0); Albumin/Globulin Ratio 0.9 (1.1-2.2); Bilirubin,Direct 0.3 mg/dL (0.0-0.5); Bilirubin,Indirect 0.3 mg/dL (0.0-1.2); Bilirubin,Total 0.6 mg/dL (0.2-1.2); Globulin 2.8 g/dL (2.4-3.5)
[2016-12-24 14:27] LABS: Total Protein 5.3 g/dL (6.0-8.3)
--- NOTE | 2016-12-24 17:24 | Electrocardiograph Report ---
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
[2016-12-24] MEDS: clonazePAM 1 MG TABLET PO SCH (20:19)
[2016-12-25] MEDS: hydrALAZINE 25 MG TABLET PO SCH ×4 (00:33→17:47)
[2016-12-25 05:33] LABS: Basophils % 0.3 %; Eosinophils # 0.1 K/mcL (0.0-0.6); Eosinophils % 0.8 %; Hematocrit 27.3 % (35.3-44.9); Hemoglobin 8.7 g/dL (11.5-15.4); Immature Granulocytes % 0.5 % (0-4); Lymphocytes # 0.6 K/mcL (0.6-4.6); Lymphocytes % 10.1 %; Mean Corpuscular HGB Conc 31.9 g/dL (31.6-35.5); Mean Corpuscular Hemoglobin 29.3 pg (28.0-33.3); Mean Corpuscular Volume 91.9 fL (83.0-100.0); Mean Platelet Volume 9.3 fL (9.4-12.4); Monocytes # 0.5 K/mcL (0.0-1.3); Monocytes % 8.4 %; Neutrophils # 4.8 K/mcL (1.6-8.9); Platelet Count 154 K/mcL (140-400); Red Blood Count 2.97 M/mcL (3.82-4.97); Red Cell Distribution Width 13.2 % (11.5-14.5); Segmented Neutrophils % 79.9 %
[2016-12-25 05:50] LABS: Albumin 2.3 g/dL (3.5-5.0); Albumin/Globulin Ratio 0.9 (1.1-2.2); Alkaline Phosphatase 46 Units/L (38-126); Aspartate Amino Transferase 10 Units/L (5-34); BUN/Creatinine Ratio 11 (6-26); Bilirubin,Total 0.6 mg/dL (0.2-1.2); Blood Urea Nitrogen 17 mg/dL (7-20); Calcium 9.7 mg/dL (8.6-10.8); Carbon Dioxide 28 mEq/L (19-29); Chloride 103 mEq/L (98-109); Globulin 2.6 g/dL (2.4-3.5); Glucose 107 mg/dL (70-99); Osmolality,Calculated 284 (280-300); Sodium 136 mEq/L (136-145); Total Protein 4.9 g/dL (6.0-8.3); eGFR For African Americans 40 (> 60); eGFR For Non-African Americans 33 (> 60)
[2016-12-25 05:51] LABS: Alanine Aminotransferase < 6 Units/L (0-55)
[2016-12-25] MEDS: *HR* Heparin 5,000 UNIT/ML VIAL SQ SCH ×2 (06:03→17:47)
[2016-12-25] MEDS: Insulin LISPRO 300 UNITS/3 ML VIAL SQ SCH ×4 (08:50→21:20)
[2016-12-25] MEDS: Spironolactone 25 MG TABLET PO SCH ×2 (08:51→21:20)
[2016-12-25] MEDS: amLODIPine 5 MG TABLET PO SCH (08:52)
[2016-12-25] MEDS ORDERED: Furosemide 20 MG/2 ML VIAL IVP SCH (09:00)
--- NOTE | 2016-12-25 15:37 | Internal Med Progress Note ---
Date of Encounter: 12/25/16 Time of Encounter: 15:33 - Assessment and plan (1) Bilateral pleural effusion Current Visit: Yes Status: Chronic Assessment and plan: s/p Thoracentesis (12/24/16) Pleural fluid analysis consistent with transudative process likely secondary to underlying nephrotic syndrome Respiratory status improved continue O2 supplementatio restarted Lasix will closely monitor respiratory status (2) CKD (chronic kidney disease) stage 3, GFR 30-59 ml/min Current Visit: Yes Status: Chronic Assessment and plan: Renal function at baseline and nephrology on board awaiting analysis of 24 hour urine protein (3) Anasarca associated with disorder of kidney Current Visit: Yes Status: Acute Assessment and plan: Likely secondary to underlying nephrotic syndrome continue diuresis s/p thoracentesis nephrology on board and consultation appreciated (4) Anemia Current Visit: No Status: Acute Assessment and plan: H&H low but acceptable continue iron supplementation monitor h&H and transfuse as needed Qualifiers: Anemia type: iron deficiency Iron deficiency anemia type: chronic blood loss Qualified Code(s): D50.0 - Iron deficiency anemia secondary to blood loss (chronic) (5) Anxiety Current Visit: Yes Status: Chronic Assessment and plan: Continue home meds (6) Closed left ankle fracture Current Visit: Yes Status: Chronic Assessment and plan: PT/OT Qualifiers: Encounter type: subsequent encounter Fracture healing: with routine healing Qualified Code(s): S82.892D - Other fracture of left lower leg, subsequent encounter for closed fracture with routine healing (7) Congestive heart failure Current Visit: Yes Status: Chronic Assessment and plan: ECHO noted for hyperdynamic LVEF 75%, moderately dilated LA, Mild LVDD, moderate Pulm HTN, pericardial effusion without tamponade. BNP on presentation 1259. CXR 12/24 still showed pulmonary congestion Plan: -Continue daily weights/I/O - Lasix 20mg IV daily - start Lasix 40mg PO qd in am and d/c IV lasix Qualifiers: Congestive heart failure type: diastolic Congestive heart failure chronicity: unspecified congestive heart failure chronicity Qualified Code(s) : I50.30 - Unspecified diastolic (congestive) heart failure (8) Depression Current Visit: Yes Status: Chronic Assessment and plan: continue home meds Qualifiers: Depression Type: unspecified Qualified Code(s): F32.9 - Major depressive disorder, single episode, unspecified (9) Diabetes mellitus Current Visit: Yes Status: Chronic Assessment and plan: continue Sliding scale insulin algorithm monitor FS and BG ADA diet Qualifiers: Diabetes mellitus type: type 2 Diabetes mellitus complication status: with kidney complications Diabetes mellitus complication detail: with chronic kidney disease Diabetes mellitus group home insulin use: with group home use Chronic kidney disease stage: stage 3 (moderate) Qualified Code(s): E11.22 - Type 2 diabetes mellitus with diabetic chronic kidney disease; N18.3 - Chronic kidney disease, stage 3 (moderate); Z79.4 - termite control service representative (current) use of insulin (10) DVT prophylaxis Current Visit: Yes Status: Acute Assessment and plan: Heparin SQ (11) HTN (hypertension) Current Visit: Yes Status: Chronic Assessment and plan: BP better controlled - Norvasc 10 mg by mouth daily - Hydralazine 50 mg by mouth every 6 hours - Lisinopril 10 mg by mouth daily per nephrology - Spironolactone 25 mg PO BID Qualifiers: Hypertension type: essential hypertension Qualified Code(s): I10 - Essential (primary) hypertension (12) Nephrotic range proteinuria Current Visit: Yes Status: Chronic Assessment and plan: Nephrology on board and consultation appreciated f/u urine protein analysis - Subjective Interval history: Patient seen and examined with family present at bedside. Currently resting comfortably in bed and saturating well on nasal cannula. Reports of feeling better compared to the previous day. - Constitutional Vitals: Temp Pulse Resp BP Pulse Ox 98.5 F 66 17 127/62 95 12/25/16 14:14 12/25/16 14:14 12/25/16 14:14 12/25/16 14:14 12/25/16 14:14 General appearance: Present: A&O X 3, no acute distress, answers questions appropriately - Head Head exam: Present: atraumatic, normocephalic - Eye Eye exam: Present: conjuntiva pink, sclera anicteric - Respiratory Respiratory exam: Absent: respiratory distress, wheezes (bibasilar crackles) - Cardiovascular Cardiovascular exam: Present: RRR, +S1, +S2. Absent: diastolic murmur, gallop, rubs, systolic murmur - GI/Abdominal GI/Abdominal exam: Present: normal bowel sounds, soft, no peritoneal signs. Absent: distended, tenderness Additional comments: ascites - Extremities Exam Extremities exam: Present: pedal edema, warm, radial pulses palpable and symmetrical. Absent: calf tenderness - Neurological Exam Neurological exam: Present: alert, oriented X3 - Psychiatric Psychiatric exam: Present: normal affect, normal mood Internal Medicine: Result - Labs CBC & Chem 7: 12/25/16 05:09 12/25/16 05:09 Labs: Short CBC 12/25/16 Range/Units 05:09 WBC 6.0 (4.3-11.1) K/mcL Hgb 8.7 L (11.5-15.4) g/dL Hct 27.3 L (35.3-44.9) % Plt Count 154 (140-400) K/mcL Neutrophils # 4.8 (1.6-8.9) K/mcL BMP 12/25/16 05:09 Sodium 136 Potassium 4.0 Chloride 103 Carbon Dioxide 28 BUN 17 Creatinine 1.51 H Glucose 107 H Calcium 9.7 Liver Function 12/25/16 Range/Units 05:09 Total Bilirubin 0.6 (0.2-1.2) mg/dL AST 10 (5-34) Units/L ALT < 6 (0-55) Units/L Alkaline Phosphatase 46 (38-126) Units/L Albumin 2.3 L (3.5-5.0) g/dL Consult Discharge Plan - Plan Referrals: Braden Cintron MD [Primary Care Provider] -
[2016-12-25] MEDS: clonazePAM 1 MG TABLET PO SCH (21:18)
[2016-12-26] MEDS: hydrALAZINE 25 MG TABLET PO SCH ×5 (00:55→23:43)
[2016-12-26] MEDS: *HR* Heparin 5,000 UNIT/ML VIAL SQ SCH ×2 (05:38→16:16)
[2016-12-26 07:59] LABS: Calcium 9.9 mg/dL (8.6-10.8); Phosphorous 2.5 mg/dL (2.3-4.7); Potassium 4.3 mEq/L (3.5-4.5)
[2016-12-26] MEDS: amLODIPine 5 MG TABLET PO SCH (08:18)
[2016-12-26] MEDS: Spironolactone 25 MG TABLET PO SCH ×2 (08:18→20:56)
[2016-12-26] MEDS: Insulin LISPRO 300 UNITS/3 ML VIAL SQ SCH ×4 (08:22→23:44)
[2016-12-26 08:23] LABS: Basophils % 0.1 %; Eosinophils # 0.1 K/mcL (0.0-0.6); Eosinophils % 1.3 %; Hematocrit 27.9 % (35.3-44.9); Hemoglobin 8.8 g/dL (11.5-15.4); Immature Granulocytes % 0.3 % (0-4); Lymphocytes # 0.5 K/mcL (0.6-4.6); Lymphocytes % 6.5 %; Mean Corpuscular HGB Conc 31.5 g/dL (31.6-35.5); Mean Corpuscular Hemoglobin 29.7 pg (28.0-33.3); Mean Corpuscular Volume 94.3 fL (83.0-100.0); Mean Platelet Volume 9.8 fL (9.4-12.4); Monocytes # 0.6 K/mcL (0.0-1.3); Monocytes % 8.2 %; Neutrophils # 5.9 K/mcL (1.6-8.9); Platelet Count 147 K/mcL (140-400); Red Blood Count 2.96 M/mcL (3.82-4.97); Red Cell Distribution Width 13.4 % (11.5-14.5); Segmented Neutrophils % 83.6 %
--- NOTE | 2016-12-26 08:58 | Nephrology Progress Note ---
Date of Encounter: 12/26/16 Time of Encounter: 08:56 - Assessment and Plan (1) CKD (chronic kidney disease) stage 3, GFR 30-59 ml/min Current Visit: Yes Status: Chronic Patient has stage III chronic kidney disease with proteinuria. Possibly related to diabetic nephropathy. Patient had been offered a renal biopsy as outpatient but decided to proceed with conservative treatment and monitor her renal function. Previous 24-hour urine collection for protein were around 1.3 g. Repeat 24-hour urine protein collection is pending. (2) Benign hypertension with CKD (chronic kidney disease) stage III Current Visit: Yes Status: Acute (3) Bilateral pleural effusion Current Visit: Yes Status: Chronic Subjective Interval history: The patient reports her breathing is improved following the thoracentesis. Her creatinine remained stable. 24-hour urine protein is still pending. Objective - Vital Signs Vital signs: Vital Signs Temp Pulse Resp BP Pulse Ox 12/26/16 06:58 98.3 F 86 14 159/65 91 12/26/16 03:57 98.9 F 77 25 166/52 91 12/26/16 00:05 99.0 F 78 28 176/72 93 12/25/16 20:02 98.0 F 74 17 157/64 96 12/25/16 14:14 98.5 F 66 17 127/62 95 12/25/16 10:43 98.3 F 74 19 154/63 95 Intake and Output 12/25/16 12/26/16 12/26/16 23:59 07:59 15:59 Output Total 0 / 0 200 / 200 Balance 0 / 0 -200 / -200 Output: Urine 0 / 0 200 / 200 Other: # Voids 1 1 # Bowel Movements 0 Blood Glucose* 173 149 - General Appearance Exam: Patient is no acute distress. Lungs diminished breath sounds otherwise clear. Heart regular rhythm. Abdomen is benign. There is minimal lower extremity swelling. His slightly greater on the left in the setting of a relatively recent ankle fracture. - Lab 12/26/16 06:25 12/26/16 06:25 Most recent lab results Calcium 9.9 mg/dL (8.6-10.8) 12/26/16 06:25 Phosphorus 2.5 mg/dL (2.3-4.7) 12/26/16 06:25 Magnesium 2.0 mg/dL (1.6-2.6) 12/26/16 06:25 Consult Discharge Plan - Plan Referrals: Braden Cintron MD [Primary Care Provider] -
[2016-12-26] MEDS ORDERED: Furosemide 40 MG TABLET PO SCH (09:00)
--- NOTE | 2016-12-26 14:12 | Internal Med Progress Note ---
Date of Encounter: 12/26/16 Time of Encounter: 14:06 - Assessment and plan (1) Bilateral pleural effusion Current Visit: Yes Status: Chronic Assessment and plan: s/p Thoracentesis (12/24/16) Pleural fluid analysis consistent with transudative process likely secondary to underlying nephrotic syndrome Respiratory status improved however given worsening pleural effusions, will increase lasix dose. Start Lasix 40mg IV qd, if pleural effusions worsen, will consider pulmonary evaluation continue O2 supplementation will closely monitor respiratory status (2) CKD (chronic kidney disease) stage 3, GFR 30-59 ml/min Current Visit: Yes Status: Chronic Assessment and plan: Renal function at baseline and nephrology on board awaiting analysis of 24 hour urine protein (3) Anasarca associated with disorder of kidney Current Visit: Yes Status: Acute Assessment and plan: Likely secondary to underlying nephrotic syndrome continue diuresis s/p thoracentesis nephrology on board and consultation appreciated (4) Anemia Current Visit: No Status: Acute Assessment and plan: H&H low but acceptable continue iron supplementation monitor h&H and transfuse as needed Qualifiers: 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 BNP on presentation 1259. CXR 12/24 still showed pulmonary congestion Plan: -Continue daily weights/I/O -lasix 40mg IV qd Qualifiers: Congestive heart failure type: diastolic Congestive heart failure chronicity: unspecified congestive heart failure chronicity Qualified Code(s) : I50.30 - Unspecified diastolic (congestive) heart failure (8) Depression Current Visit: Yes Status: Chronic Assessment and plan: continue home meds Qualifiers: Depression Type: unspecified Qualified Code(s): F32.9 - Major depressive disorder, single episode, unspecified (9) Diabetes mellitus Current Visit: Yes Status: Chronic Assessment and plan: continue Sliding scale insulin algorithm monitor FS and BG ADA diet Qualifiers: Diabetes mellitus type: type 2 Diabetes mellitus complication status: with kidney complications Diabetes mellitus complication detail: with chronic kidney disease Diabetes mellitus extermination supervisor insulin use: with extermination supervisor use Chronic kidney disease stage: stage 3 (moderate) Qualified Code(s): E11.22 - Type 2 diabetes mellitus with diabetic chronic kidney disease; N18.3 - Chronic kidney disease, stage 3 (moderate); Z79.4 - intermediate manager (current) use of insulin (10) DVT prophylaxis Current Visit: Yes Status: Acute Assessment and plan: Heparin SQ (11) HTN (hypertension) Current Visit: Yes Status: Chronic Assessment and plan: BP better controlled - Norvasc 10 mg by mouth daily - Hydralazine 50 mg by mouth every 6 hours - Lisinopril 10 mg by mouth daily per nephrology - Spironolactone 25 mg PO BID Qualifiers: Hypertension type: essential hypertension Qualified Code(s): I10 - Essential (primary) hypertension (12) Nephrotic range proteinuria Current Visit: Yes Status: Chronic Assessment and plan: Nephrology on board and consultation appreciated f/u urine protein analysis - Subjective Interval history: Patient seen and examined at bedside. Resting in bed and reports of feeling tired. CXR shows worsening pleural effusions bilaterally (left greater than right). Patient currently saturating well on nasal cannula however prior to this hospitalization, she was using oxygen on as needed basis. No overnight issues reported. - Constitutional Vitals: Temp Pulse Resp BP Pulse Ox 98.1 F 69 14 154/66 94 12/26/16 11:13 12/26/16 11:13 12/26/16 11:13 12/26/16 11:13 12/26/16 11:13 General appearance: Present: A&O X 3 (frail appearing elderly female), no acute distress, answers questions appropriately - Head Head exam: Present: atraumatic, normocephalic - Eye Eye exam: Present: conjuntiva pink, sclera anicteric - Respiratory Respiratory exam: Absent: respiratory distress, wheezes (decreased breath sounds bilaterally) - Cardiovascular Cardiovascular exam: Present: RRR, +S1, +S2. Absent: diastolic murmur, gallop, rubs, systolic murmur - GI/Abdominal GI/Abdominal exam: Present: normal bowel sounds, soft, no peritoneal signs. Absent: distended, tenderness - Extremities Exam Extremities exam: Present: warm, radial pulses palpable and symmetrical. Absent : calf tenderness - Neurological Exam Neurological exam: Present: alert, oriented X3 Internal Medicine: Result - Labs CBC & Chem 7: 12/26/16 06:25 12/26/16 06:25 Labs: Short CBC 12/26/16 Range/Units 06:25 WBC 7.1 (4.3-11.1) K/mcL Hgb 8.8 L (11.5-15.4) g/dL Hct 27.9 L (35.3-44.9) % Plt Count 147 (140-400) K/mcL Neutrophils # 5.9 (1.6-8.9) K/mcL BMP 12/26/16 06:25 Sodium 136 Potassium 4.3 Chloride 103 Carbon Dioxide 29 BUN 18 Creatinine 1.53 H Glucose 119 H Calcium 9.9 - Impressions Impressions Chest X-Ray 12/26/16 07:00 IMPRESSION: Congestive heart failure with bilateral pleural effusions left greater than right D/ / Rohit Light MD / Rohit Light MD Interpreting Provider: Rohit Light MD Consult Discharge Plan - Plan Referrals: Braden Cintron MD [Primary Care Provider] -
[2016-12-26] MEDS ORDERED: Furosemide 40 MG/4 ML VIAL IVP SCH (14:30)
[2016-12-26] MEDS: clonazePAM 1 MG TABLET PO SCH (20:57)
[2016-12-27] MEDS: hydrALAZINE 25 MG TABLET PO SCH ×4 (05:13→23:30)
[2016-12-27] MEDS: *HR* Heparin 5,000 UNIT/ML VIAL SQ SCH ×2 (05:13→16:49)
[2016-12-27 08:06] LABS: Basophils % 0.2 %; Eosinophils # 0.1 K/mcL (0.0-0.6); Eosinophils % 1.1 %; Hematocrit 27.8 % (35.3-44.9); Hemoglobin 8.5 g/dL (11.5-15.4); Immature Granulocytes % 0.9 % (0-4); Lymphocytes # 0.4 K/mcL (0.6-4.6); Lymphocytes % 8.8 %; Mean Corpuscular HGB Conc 30.6 g/dL (31.6-35.5); Mean Corpuscular Hemoglobin 28.6 pg (28.0-33.3); Mean Corpuscular Volume 93.6 fL (83.0-100.0); Monocytes # 0.5 K/mcL (0.0-1.3); Monocytes % 10.1 %; Neutrophils # 3.5 K/mcL (1.6-8.9); Platelet Count 140 K/mcL (140-400); Red Blood Count 2.97 M/mcL (3.82-4.97); Red Cell Distribution Width 13.3 % (11.5-14.5); Segmented Neutrophils % 78.9 %
[2016-12-27] MEDS: Acetaminophen 325 MG TABLET PO PRN (08:34)
[2016-12-27] MEDS: Furosemide 40 MG/4 ML VIAL IVP SCH ×2 (08:34→20:03)
[2016-12-27] MEDS: Insulin LISPRO 300 UNITS/3 ML VIAL SQ SCH ×4 (08:35→20:58)
[2016-12-27 08:47] LABS: Total Volume 24 Hour,Urine 1.39 Liters (0.60-1.60)
[2016-12-27 08:56] LABS: Creatinine 24 Hour,Urine 0.5 g/day (0.71-1.65)
[2016-12-27 09:07] LABS: Calcium 10.1 mg/dL (8.6-10.8); Magnesium 1.9 mg/dL (1.6-2.6); Phosphorous 2.3 mg/dL (2.3-4.7)
[2016-12-27] MEDS: amLODIPine 5 MG TABLET PO SCH (09:36)
[2016-12-27] MEDS: Spironolactone 25 MG TABLET PO SCH ×2 (09:39→20:03)
--- NOTE | 2016-12-27 09:50 | Nephrology Progress Note ---
Date of Encounter: 12/27/16 Time of Encounter: 09:10 - Assessment and Plan (1) Renal insufficiency Current Visit: Yes Status: Acute CKD 3, history of proteinuria. Renal fct stable. 24 hour urine protein 1.3 gms, same as prior. Not nephrotic range. Do not believe recurring pleural effusions in setting of nephrotic syndrome. Recommend pulmonary consult. Subjective Interval history: Sitting up in bed. Ate breakfast. States does not feel she is breathing any easier since right thorocentesis. Objective - Vital Signs Vital signs: Vital Signs Temp Pulse Resp BP Pulse Ox 12/27/16 07:53 99.8 F H 82 15 184/65 92 12/27/16 04:15 99.0 F 81 17 191/64 93 12/26/16 23:56 100.1 F H 72 15 184/70 96 12/26/16 18:45 99.7 F H 82 16 161/54 95 12/26/16 14:38 98.7 F 69 14 144/65 98 12/26/16 11:13 98.1 F 69 14 154/66 94 Intake and Output 12/26/16 12/27/16 12/27/16 23:59 07:59 15:59 Intake Total 120 / 120 Output Total 350 / 350 Balance -230 / -230 Intake: Oral 120 / 120 Output: Urine 350 / 350 Other: Stool Size Small Stool Consistency soft Stool Color Brown # Voids 1 1 # Bowel Movements 1 Blood Glucose* 223 144 - General Appearance General appearance: Present: frail EENT: Present: mucous membranes moist Neck: Present: no JVD Respiratory: Present: clear Additional Comments: diminished Cardiology: Present: no edema, regular rate, regular rhythm Gastrointestinal: Present: normoactive bowel sounds, no tenderness Integumentary: Present: warm and dry Neurologic: Present: alert and oriented x3 Psychiatric: Present: mood/affect appropriate, cooperative - Lab 12/27/16 05:04 12/27/16 08:20 Most recent lab results Calcium 10.1 mg/dL (8.6-10.8) 12/27/16 08:20 Phosphorus 2.3 mg/dL (2.3-4.7) 12/27/16 08:20 Magnesium 1.9 mg/dL (1.6-2.6) 12/27/16 08:20 Urine Creatinine 36 mg/dL 12/24/16 01:31 Ur Total Protein 24 Hr 1376 mg/day (0-299) H 12/24/16 01:31 Urine Total Protein 99 mg/dL (1-14) H 12/24/16 01:31 Consult Discharge Plan - Plan Referrals: Braden Cintron MD [Primary Care Provider] -
--- NOTE | 2016-12-27 10:03 | Nephrology Progress Note ---
Date of Encounter: 12/27/16 Time of Encounter: 09:55 - Assessment and Plan (1) Renal insufficiency Current Visit: Yes Status: Acute CKD 3, history of proteinuria. Renal fct stable. 24 hour urine protein 1.3 gms, same as prior. Not nephrotic range. Do not believe recurring pleural effusions in setting of nephrotic syndrome. Recommend pulmonary consult. Subjective Interval history: Sitting up in bed. Ate breakfast. States does not feel she is breathing any easier since right thorocentesis. Objective - Vital Signs Vital signs: Vital Signs Temp Pulse Resp BP Pulse Ox 12/27/16 07:53 99.8 F H 82 15 184/65 92 12/27/16 04:15 99.0 F 81 17 191/64 93 12/26/16 23:56 100.1 F H 72 15 184/70 96 12/26/16 18:45 99.7 F H 82 16 161/54 95 12/26/16 14:38 98.7 F 69 14 144/65 98 12/26/16 11:13 98.1 F 69 14 154/66 94 Intake and Output 12/26/16 12/27/16 12/27/16 23:59 07:59 15:59 Intake Total 120 / 120 Output Total 350 / 350 Balance -230 / -230 Intake: Oral 120 / 120 Output: Urine 350 / 350 Other: Stool Size Small Stool Consistency soft Stool Color Brown # Voids 1 1 # Bowel Movements 1 Blood Glucose* 223 144 - Lab 12/27/16 05:04 12/27/16 08:20 Most recent lab results Calcium 10.1 mg/dL (8.6-10.8) 12/27/16 08:20 Phosphorus 2.3 mg/dL (2.3-4.7) 12/27/16 08:20 Magnesium 1.9 mg/dL (1.6-2.6) 12/27/16 08:20 Urine Creatinine 36 mg/dL 12/24/16 01:31 Ur Total Protein 24 Hr 1376 mg/day (0-299) H 12/24/16 01:31 Urine Total Protein 99 mg/dL (1-14) H 12/24/16 01:31 Consult Discharge Plan - Plan Referrals: Braden Cintron MD [Primary Care Provider] -
--- NOTE | 2016-12-27 13:26 | Pulmonology Consult Note ---
<Stephanie Engle - Last Filed: 12/27/16 16:00> Date of Encounter: 12/27/16 Time of Encounter: 02:30 Assessment and Plan (1) Bilateral pleural effusion Current Visit: Yes Status: Chronic Pleural fluid analysis from right sided thoracentesis demonstrated a transudative pleural fluid according to Light's criteria. The patient is not symptomatic and does not complain of significant shortness of breath. Thus a thoracentesis is not needed at this time, if the patient does become symptomatic then the procedure could be done. Echocardiogram demonstrated LVEF 75%, moderate pulmonary hypertension, mld left ventricular diastolic dysfunction , moderate dilatated left atrium, pericardial effusion w/o tamponade. The patient has no history of lung disease. The pleural effusion could be secondary to CKD but nephrology does not believe this is the cause. The pleural effusion is most likely secondary to diastolic heart dysfunction or malnutrition that could be causing pulmonary hypertension. The patient should continue diuretics, improve oral intake of proper nutrition, and have evaluation for physical therapy. History of Present Illness Consult date: 12/27/16 Reason for consult: pleural effusion Chief complaint: bilateral pleural effusion History of present illness: 81yo female along side family stated that she was taken to the ED on 12/22/2016. She stated she could not remember why, but upon review of admission notes it was for further evaluation of abdominal pain. PMH: CKD 3, HTN, DM, HLD , right breast cancer, CVA. She has no prior history of pulmonary disease. She was found to have an elevated proteinuria and nephrology was consulted but does not believe this is nephrotic due to 24hr urine protein same as prior and baseline creatinine. X-ray of chest demonstrated bilateral pleural effusions with the right worse than left. A right thoracentesis was performed on 2016 with 1400cc transudative fluid removed. Echocardiogram demonstrated LVEF 75 %, moderate pulmonary hypertension, mld left ventricular diastolic dysfunction, moderate dilatated left atrium, pericardial effusion w/o tamponade. Chest x-ray on 12/26/2016 demonstrated CHF with bilateral pleural effusion left greater than right. She was recently seen in the pulmonary office for weakness and f/u on pneumonia. She denies smoking, traveling, pets. She is living at a assisted for the time being. She is up to date on immunizations. Medications and Allergies Atorvastatin [Lipitor] 40 mg PO DAILY 12/13/14 [History] Citalopram Hydrobromide [Celexa] 20 mg PO DAILY 12/13/14 [History] Aspirin/Dipyridamole [Aggrenox 25 mg-200 mg Capsule] 1 cap PO BID 04/23/16 [ History] Carvedilol [Coreg] 25 mg PO BID 04/23/16 [History] Quetiapine Fumarate [Seroquel] 25 mg PO HS 04/23/16 [History] Sertraline [Zoloft] 50 mg PO DAILY 04/23/16 [History] Furosemide [Lasix] 20 mg PO DAILY 10/20/16 [History] Memantine HCl 10 mg PO DAILY 10/20/16 [History] clonazePAM [Klonopin] 1 mg PO HS 10/20/16 [History] Docusate [Colace] 100 mg PO BID #0 10/26/16 [Rx] Ferrous Gluconate 324 mg PO DAILY #30 10/26/16 [Rx] Glucagon, Human Recombinant [Glucagen] 1 mg IM ONCE PRN vial 10/26/16 [Rx] amLODIPine [Norvasc] 10 mg PO DAILY #60 tab 10/26/16 [Rx] hydrALAZINE [HydrALAZINE] 50 mg PO Q6HR tab 10/26/16 [Rx] Lactose-Reduced Food [Ensure Original] 1 bottle PO DAILY 12/23/16 [History] OxyCODONE Immed Rel [Roxicodone 5 MG] 5 mg PO Q8HR 12/23/16 [History] OxyCODONE Immed Rel [Roxicodone 5 MG] 5 mg PO TID PRN 12/23/16 [History] Polyethylene Glycol 3350 [MiraLAX] 17 gm PO BID 12/23/16 [History] glipiZIDE [Glucotrol] 5 mg PO BID 12/23/16 [History] 3 Allergy/AdvReac Type Severity Reaction Status Date / Time codeine Allergy Rash Verified 02/24/15 06:48 Penicillins Allergy Rash Verified 02/24/15 06:48 propoxyphene Allergy Rash Verified 10/20/16 10:39 All Systems: A 10-system review of systems was performed and is negative for pertinent findings except as documented above in the HPI. - Constitutional Constitutional: weakness, no chills, no fever(s) - EENT Eyes: no loss of vision - Cardiovascular Cardiovascular: no chest pain, no irregular heart rhythm, no palpitations, no syncope - Respiratory Respiratory: cough, dyspnea, chest congestion, no hemoptysis, no wheezing, no pain on inspirtation - Gastrointestinal Gastrointestinal: abdominal pain, no hematemesis, no melena, no nausea, no vomiting Physical Examination Vital Signs: Vital Signs, Last 4 Hours Temp Pulse BP 12/27/16 11:18 98.7 F 69 173/64 General appearance: no acute distress, alert Eyes: nonicteric ENT: oropharynx moist Mallampati (class): 3 Neck: supple Effort: normal Inspection: normal Auscultation: bilateral: other (crackles in bases) Percussion: bilateral: dull (bases) Tactile fremitus: bilateral: diminished (bases) Cardiovascular: regular rate and rhythm, murmur noted (systolic 3/6) Gastrointestinal: normoactive bowel sounds, soft, non-tender normal mental status mood appropriate Results - Laboratory Findings CBC and BMP: 12/27/16 05:04 12/27/16 08:20 Abnormal lab findings: Abnormal lab results RBC 2.97 M/mcL (3.82-4.97) L 12/27/16 05:04 Hgb 8.5 g/dL (11.5-15.4) L 12/27/16 05:04 Hct 27.8 % (35.3-44.9) L 12/27/16 05:04 MCHC 30.6 g/dL (31.6-35.5) L 12/27/16 05:04 Lymphocytes # 0.4 K/mcL (0.6-4.6) L 12/27/16 05:04 Creatinine 1.52 mg/dL (0.57-1.11) H 12/27/16 08:20 Est GFR ( Amer) 40 (> 60) L 12/27/16 08:20 Est GFR (Non-Af Amer) 33 (> 60) L 12/27/16 08:20 Glucose 132 mg/dL (70-99) H 12/27/16 08:20 POC Glucose 241 (58-89) H 12/27/16 11:37 Lactate Dehydrogenase 156 Units/L (159-327) L 12/24/16 11:42 B-Natriuretic Peptide 1259 pg/mL (0-100) H 12/22/16 14:59 Serum Total Protein 4.9 g/dL (6.0-8.3) L 12/25/16 05:09 Albumin 2.3 g/dL (3.5-5.0) L 12/25/16 05:09 Albumin/Globulin Ratio 0.9 (1.1-2.2) L 12/25/16 05:09 Urine Protein >=300 mg/dL (Neg-Trace) H 12/22/16 14:45 Ur Squamous Epith Cells Many per lpf (None-Few) H 12/22/16 14:45 Ur Creatinine 24 Hour 0.50 g/day (0.71-1.65) L 12/24/16 01:31 Ur Total Protein 24 Hr 1376 mg/day (0-299) H 12/24/16 01:31 Urine Total Protein 99 mg/dL (1-14) H 12/24/16 01:31 - Microbiology Findings Microbiology Findings: Microbiology, Last 48 Hours 12/24/16 10:46 Body Fluid Culture - Final Pleural Fluid - Clinical Findings Intake & Output: Intake & Output 12/26/16 12/27/16 12/27/16 23:59 07:59 15:59 Intake Total 120 / 120 240 / 240 Output Total 350 / 350 450 / 450 Balance -230 / -230 -210 / -210 Consult Discharge Plan - Plan Referrals: Braden Cintron MD [Primary Care Provider] - <Radha Angel M - Last Filed: 12/27/16 16:32> Date of Encounter: 12/27/16 Past Med Surg Social Fam HX - Past Medical History Medical history: cancer, CVA, dementia, diabetes, GERD, hyperlipidemia, hypertension, renal disease Psychiatric history: anxiety, depression - Past Surgical History Surgical History: knee replacement, orthopedic, other, other - Social History Smoking Status: Never smoker Smokeless Tobacco Status: No Alcohol use: none Drug use: none - Family History Father Family Member Ethnicity: Non- Living Status: Age at : 83 Cause of : MO Hx Family Cardiac Disorders: Yes Hx Family Respiratory Disorders: Yes Hx Family Cancer: Yes Hx Family GI Disorders: Yes Hx Family Genitourinary Disorders: Yes Hx Family Endocrine Disorder: No Hx Family Musculoskeletal Disorders: No Hx Family Neuromuscular Disorders: No Hx Family Neurologic Disorders: No Hx Family HEENT Disorders: No Hx Family Autoimmune Disorders: No Hx Family Reproductive Disorders: No Hx Family Psychosocial Disorders: No Hx Family Medical Disorders: No Mother Age: 66 Family Member Ethnicity: Non- Living Status: Age at : 66 Cause of : Diabetes Hx Family Cardiac Disorders: No Hx Family Respiratory Disorders: No Hx Family Cancer: Yes Hx Family GI Disorders: No Hx Family Genitourinary Disorders: Yes Hx Family Endocrine Disorder: No Hx Family Musculoskeletal Disorders: Yes Hx Family Neuromuscular Disorders: No Hx Family Neurologic Disorders: No Hx Family HEENT Disorders: No Hx Family Autoimmune Disorders: No Hx Family Reproductive Disorders: No Hx Family Psychosocial Disorders: No Hx Family Medical Disorders: No Sister Family Member Ethnicity: Non- Living Status: Still Living Hx Family Endocrine Disorder: Yes (DM) All Systems: A 10-system review of systems was performed and is negative for pertinent findings except as documented above in the HPI. Physical Examination Vital Signs: Vital Signs, Last 4 Hours Temp Pulse BP 12/27/16 11:18 98.7 F 69 173/64 Results - Laboratory Findings CBC and BMP: 12/27/16 05:04 12/27/16 08:20 Abnormal lab findings: Abnormal lab results RBC 2.97 M/mcL (3.82-4.97) L 12/27/16 05:04 Hgb 8.5 g/dL (11.5-15.4) L 12/27/16 05:04 Hct 27.8 % (35.3-44.9) L 12/27/16 05:04 MCHC 30.6 g/dL (31.6-35.5) L 12/27/16 05:04 Lymphocytes # 0.4 K/mcL (0.6-4.6) L 12/27/16 05:04 Creatinine 1.52 mg/dL (0.57-1.11) H 12/27/16 08:20 Est GFR ( Amer) 40 (> 60) L 12/27/16 08:20 Est GFR (Non-Af Amer) 33 (> 60) L 12/27/16 08:20 Glucose 132 mg/dL (70-99) H 12/27/16 08:20 POC Glucose 241 (58-89) H 12/27/16 11:37 Lactate Dehydrogenase 156 Units/L (159-327) L 12/24/16 11:42 B-Natriuretic Peptide 1259 pg/mL (0-100) H 12/22/16 14:59 Serum Total Protein 4.9 g/dL (6.0-8.3) L 12/25/16 05:09 Albumin 2.3 g/dL (3.5-5.0) L 12/25/16 05:09 Albumin/Globulin Ratio 0.9 (1.1-2.2) L 12/25/16 05:09 Urine Protein >=300 mg/dL (Neg-Trace) H 12/22/16 14:45 Ur Squamous Epith Cells Many per lpf (None-Few) H 12/22/16 14:45 Ur Creatinine 24 Hour 0.50 g/day (0.71-1.65) L 12/24/16 01:31 Ur Total Protein 24 Hr 1376 mg/day (0-299) H 12/24/16 01:31 Urine Total Protein 99 mg/dL (1-14) H 12/24/16 01:31 - Microbiology Findings Microbiology Findings: Microbiology, Last 48 Hours 12/24/16 10:46 Body Fluid Culture - Final Pleural Fluid - Clinical Findings Intake & Output: Intake & Output 12/26/16 12/27/16 12/27/16 23:59 07:59 15:59 Intake Total 120 / 120 Output Total 350 / 350 450 / 450 Balance -230 / -230 -450 / -450 - Attending Attestation I examined this patient and my medical decision-making was reviewed with the Resident Physician. I agree with the documented findings, disposition and treatment plan as described except to the extent set forth below. Patient seen and examined. Labs, radiology, chart personally reviewed. Agree with resident's history and physical, assessment, plan with following comments: GASTROENTEROLOGY MANAGER: Patient follows commands, Pulmonary: Acceptable oxygenation and ventilation. Reviewed pleural fluid analysis which is consistent with transudate effusion according to the light's criteria and differential diagnosis heart failure, liver disease and renal diseases as well as hypoproteinemia with poor nutrition and this patient at least 2 of them are present including diastolic dysfunction as her echocardiogram and she has poor nutrition. As far as pulmonary hypertension most likely secondary and suspected group 2. Since patient is not in any distress no intervention and diuresis as well as improve nutrition would be recommended. Consider therapeutic thoracentesis if patient starts to have any respiratory distress. Cardiovascular: stable I have updated family at the bedside and thank you for consultation.
--- NOTE | 2016-12-27 15:23 | Internal Med Progress Note ---
Date of Encounter: 12/27/16 Time of Encounter: 15:19 - Assessment and plan (1) Bilateral pleural effusion Current Visit: Yes Status: Chronic Assessment and plan: s/p Thoracentesis (12/24/16) Pleural fluid analysis consistent with transudative process likely secondary to underlying nephrotic syndrome vs. CHF Respiratory status improved however given worsening pleural effusions, will increase lasix dose to 40mg IV BID Pulmonary evaluation requested given current pleural effusions continue O2 supplementation will closely monitor respiratory status (2) CKD (chronic kidney disease) stage 3, GFR 30-59 ml/min Current Visit: Yes Status: Chronic Assessment and plan: Renal function at baseline and nephrology on board awaiting analysis of 24 hour urine protein (3) Anasarca associated with disorder of kidney Current Visit: Yes Status: Acute Assessment and plan: Likely secondary to underlying nephrotic syndrome continue diuresis s/p thoracentesis nephrology on board and consultation appreciated (4) Anemia Current Visit: No Status: Acute Assessment and plan: H&H low but acceptable continue iron supplementation monitor h&H and transfuse as needed Qualifiers: Qualified Code(s): D50.0 - Iron deficiency anemia secondary to blood loss ( chronic) (5) Anxiety Current Visit: Yes Status: Chronic Assessment and plan: Continue home meds (6) Closed left ankle fracture Current Visit: Yes Status: Chronic Assessment and plan: PT/OT (7) Congestive heart failure Current Visit: Yes Status: Chronic Assessment and plan: ECHO noted for hyperdynamic LVEF 75%, moderately dilated LA, Mild LVDD, moderate Pulm HTN, pericardial effusion without tamponade. BNP on presentation 1259. CXR 12/24 still showed pulmonary congestion Plan: -Continue daily weights/I/O -lasix 40mg IV BID Qualifiers: Qualified Code(s): I50.30 - Unspecified diastolic (congestive) heart failure (8) Depression Current Visit: Yes Status: Chronic Assessment and plan: continue home meds Qualifiers: Qualified Code(s): F32.9 - Major depressive disorder, single episode, unspecified (9) Diabetes mellitus Current Visit: Yes Status: Chronic Assessment and plan: continue Sliding scale insulin algorithm monitor FS and BG ADA diet Qualifiers: Qualified Code(s): E11.22 - Type 2 diabetes mellitus with diabetic chronic kidney disease; N18.3 - Chronic kidney disease, stage 3 (moderate); Z79.4 - long term care social worker (current) use of insulin (10) DVT prophylaxis Current Visit: Yes Status: Acute Assessment and plan: Heparin SQ (11) HTN (hypertension) Current Visit: Yes Status: Chronic Assessment and plan: BP better controlled after receiving Hydralazine 10mg IV Will d/c Norvasc and start Nifedipine XL 60mg PO qd Continue Hydralazine 50 mg by mouth every 6 hours, Lisinopril 10 mg by mouth daily per nephrology, Spironolactone 25 mg PO BID Repeat BP: 120/56 will closely monitor BP Qualifiers: Qualified Code(s): I10 - Essential (primary) hypertension (12) Nephrotic range proteinuria Current Visit: Yes Status: Chronic Assessment and plan: Nephrology on board and consultation appreciated f/u urine protein analysis - Subjective Interval history: Patient seen and examined with family present at bedside. Resting in bed and reports of feeling better compared to previous day. Pt noted to have persistent hypertension despite current antihypertensive therapy. she was given one time dose of Hydralazine 10mg IV with improvement in BP to 120/56. Will d/c amlodipine and start patient on nifedipine XL 60mg PO qd. Given patient's recurrent pleural effusions, pulmonology consultation was requested - Constitutional Vitals: Temp Pulse Resp BP Pulse Ox 98.7 F 69 15 173/64 92 12/27/16 11:18 12/27/16 11:18 12/27/16 07:53 12/27/16 11:18 12/27/16 07:53 General appearance: Present: A&O X 3 (frail appearing elderly female), no acute distress, answers questions appropriately - Head Head exam: Present: atraumatic, normocephalic - Eye Eye exam: Present: conjuntiva pink, sclera anicteric - Respiratory Respiratory exam: Present: rales (diffuse rales). Absent: accessory muscle use , chest wall tenderness, respiratory distress, wheezes - Cardiovascular Cardiovascular exam: Present: RRR, +S1, +S2. Absent: diastolic murmur, gallop, rubs, systolic murmur - GI/Abdominal GI/Abdominal exam: Present: normal bowel sounds, soft, no peritoneal signs. Absent: distended, tenderness - Extremities Exam Extremities exam: Present: warm, radial pulses palpable and symmetrical. Absent : calf tenderness, cyanotic, pedal edema - Neurological Exam Neurological exam: Present: alert, oriented X3 Internal Medicine: Result - Labs CBC & Chem 7: 12/27/16 05:04 12/27/16 08:20 Labs: Short CBC 12/27/16 Range/Units 05:04 WBC 4.4 (4.3-11.1) K/mcL Hgb 8.5 L (11.5-15.4) g/dL Hct 27.8 L (35.3-44.9) % Plt Count 140 (140-400) K/mcL Neutrophils # 3.5 (1.6-8.9) K/mcL BMP 12/27/16 08:20 Sodium 136 Potassium 4.0 Chloride 102 Carbon Dioxide 29 BUN 18 Creatinine 1.52 H Glucose 132 H Calcium 10.1 Consult Discharge Plan - Plan Referrals: Braden Cintron MD [Primary Care Provider] -
[2016-12-27] MEDS ORDERED: NIFEdipine XL (24 HR) 60 MG TAB.ER.24 PO SCH (15:30)
[2016-12-27] MEDS: clonazePAM 1 MG TABLET PO SCH (20:03)
[2016-12-28] MEDS: *HR* Heparin 5,000 UNIT/ML VIAL SQ SCH ×2 (05:22→17:31)
[2016-12-28 05:58] LABS: Basophils % 0.5 %; Eosinophils % 1.1 %; Hemoglobin 9.3 g/dL (11.5-15.4); Immature Granulocytes % 0.8 % (0-4); Lymphocytes # 0.5 K/mcL (0.6-4.6); Lymphocytes % 13.4 %; Mean Corpuscular HGB Conc 32.1 g/dL (31.6-35.5); Mean Corpuscular Hemoglobin 29.9 pg (28.0-33.3); Mean Corpuscular Volume 93.2 fL (83.0-100.0); Mean Platelet Volume 9.9 fL (9.4-12.4); Monocytes # 0.5 K/mcL (0.0-1.3); Monocytes % 14.2 %; Neutrophils # 2.6 K/mcL (1.6-8.9); Platelet Count 123 K/mcL (140-400); Red Blood Count 3.11 M/mcL (3.82-4.97); Red Cell Distribution Width 13.5 % (11.5-14.5)
[2016-12-28] MEDS: hydrALAZINE 25 MG TABLET PO SCH ×3 (06:04→17:31)
[2016-12-28 06:15] LABS: Calcium 10.4 mg/dL (8.6-10.8); Potassium 4.2 mEq/L (3.5-4.5)
[2016-12-28] MEDS: NIFEdipine XL (24 HR) 60 MG TAB.ER.24 PO SCH ×2 (08:56→08:57)
[2016-12-28] MEDS: *HR* OxyCODONE Immed Rel 5 MG TABLET PO PRN ×2 (08:57→14:53)
[2016-12-28] MEDS: Spironolactone 25 MG TABLET PO SCH ×2 (08:58→22:06)
[2016-12-28] MEDS: Insulin LISPRO 300 UNITS/3 ML VIAL SQ SCH ×4 (08:59→22:07)
[2016-12-28] MEDS: Furosemide 40 MG/4 ML VIAL IVP SCH ×2 (09:01→22:07)
--- NOTE | 2016-12-28 10:15 | Nephrology Progress Note ---
Date of Encounter: 12/28/16 Time of Encounter: 09:50 - Assessment and Plan (1) Renal insufficiency Current Visit: Yes Status: Acute CKD 3, history of proteinuria. Renal fct stable. 24 hour urine protein 1.3 gms, same as prior. Not nephrotic range. Do not believe recurring pleural effusions in setting of nephrotic syndrome. Appreciate pulmonary consult. Subjective Interval history: Sitting up in bed. Ate breakfast. States breathing easier today. No new complaints. Objective - Vital Signs Vital signs: Vital Signs Temp Pulse Resp BP Pulse Ox 12/28/16 06:06 177/69 12/28/16 05:00 98.3 F 76 16 169/68 95 12/27/16 23:46 98.9 F 68 15 180/91 97 12/27/16 20:39 99.0 F 67 15 151/66 97 12/27/16 15:31 61 120/56 12/27/16 12:20 64 162/68 12/27/16 11:18 98.7 F 69 173/64 Intake and Output 12/27/16 12/28/16 12/28/16 23:59 07:59 15:59 Intake Total 120 / 120 100 / 100 Output Total 825 / 825 400 / 400 Balance -705 / -705 -300 / -300 Intake: Oral 120 / 120 100 / 100 Output: Urine 825 / 825 200 / 200 Urine/Stool Mix 200 / 200 Other: Meal Dinner Percent of Meal Consumed 25% Stool Size Small Small Small Stool Consistency soft soft soft formed formed formed Stool Characteristics Normal for Patient Stool Color Brown Brown Brown # Voids 1 # Bowel Movements 0 1 Blood Glucose* 195 160 - General Appearance General appearance: Present: appears started age, frail EENT: Present: mucous membranes moist Neck: Present: no JVD Respiratory: Present: clear Additional Comments: diminished Cardiology: Present: no edema, regular rate, regular rhythm Gastrointestinal: Present: normoactive bowel sounds, no tenderness Integumentary: Present: warm and dry Neurologic: Present: alert and oriented x3 Psychiatric: Present: mood/affect appropriate, cooperative - Lab 12/28/16 05:26 12/28/16 05:26 Most recent lab results Calcium 10.4 mg/dL (8.6-10.8) 12/28/16 05:26 Phosphorus 3.0 mg/dL (2.3-4.7) 12/28/16 05:26 Magnesium 2.0 mg/dL (1.6-2.6) 12/28/16 05:26 Urine Creatinine 36 mg/dL 12/24/16 01:31 Ur Total Protein 24 Hr 1376 mg/day (0-299) H 12/24/16 01:31 Urine Total Protein 99 mg/dL (1-14) H 12/24/16 01:31 Consult Discharge Plan - Plan Referrals: Braden Cintron MD [Primary Care Provider] -
[2016-12-28] MEDS: Acetaminophen 325 MG TABLET PO PRN (13:01)
--- NOTE | 2016-12-28 14:52 | Discharge Summary ---
Date of Encounter: 12/28/16 Time of Encounter: 14:45 - Discharge Diagnosis (1) Bilateral pleural effusion Priority: Primary Status: Acute (2) CKD (chronic kidney disease) stage 3, GFR 30-59 ml/min Priority: Secondary Status: Chronic (3) Anasarca associated with disorder of kidney Priority: Secondary Status: Chronic (4) Anemia Priority: Secondary Status: Acute Qualifiers: Anemia type: iron deficiency Iron deficiency anemia type: chronic blood loss Qualified Code(s): D50.0 - Iron deficiency anemia secondary to blood loss (chronic) (5) Anxiety Priority: Secondary Status: Chronic (6) Closed left ankle fracture Priority: Secondary Status: Chronic Qualifiers: Encounter type: subsequent encounter Fracture healing: with routine healing Qualified Code(s): S82.892D - Other fracture of left lower leg, subsequent encounter for closed fracture with routine healing (7) Congestive heart failure Priority: Secondary Status: Chronic Qualifiers: Congestive heart failure type: diastolic Congestive heart failure chronicity: unspecified congestive heart failure chronicity Qualified Code(s) : I50.30 - Unspecified diastolic (congestive) heart failure (8) Depression Priority: Secondary Status: Chronic Qualifiers: Depression Type: unspecified Qualified Code(s): F32.9 - Major depressive disorder, single episode, unspecified (9) Diabetes mellitus Priority: Secondary Status: Chronic Qualifiers: Diabetes mellitus type: type 2 Diabetes mellitus complication status: with kidney complications Diabetes mellitus complication detail: with chronic kidney disease Diabetes mellitus longterm insulin use: with longterm use Chronic kidney disease stage: stage 3 (moderate) Qualified Code(s): E11.22 - Type 2 diabetes mellitus with diabetic chronic kidney disease; N18.3 - Chronic kidney disease, stage 3 (moderate); Z79.4 - intermediate (current) use of insulin (10) DVT prophylaxis Priority: Secondary Status: Acute (11) HTN (hypertension) Priority: Secondary Status: Chronic Qualifiers: Hypertension type: essential hypertension Qualified Code(s): I10 - Essential (primary) hypertension (12) 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 - Discharge Medications Prescriptions: OxyCODONE Immed Rel [Roxicodone 5 MG] 5 mg PO Q8HR PRN #20 PRN Reason: Pain clonazePAM [Klonopin] 1 mg PO HS #10 Furosemide [Lasix] 40 mg PO BID #20 tab Ondansetron HCl [Zofran] 4 mg PO Q8H PRN #10 tablet PRN Reason: Nausea And Vomiting Home Medications: Atorvastatin [Lipitor] 40 mg PO DAILY 12/13/14 [History] Citalopram Hydrobromide [Celexa] 20 mg PO DAILY 12/13/14 [History] Aspirin/Dipyridamole [Aggrenox 25 mg-200 mg Capsule] 1 cap PO BID 04/23/16 [ History] Carvedilol [Coreg] 25 mg PO BID 04/23/16 [History] Quetiapine Fumarate [Seroquel] 25 mg PO HS 04/23/16 [History] Sertraline [Zoloft] 50 mg PO DAILY 04/23/16 [History] Memantine HCl 10 mg PO DAILY 10/20/16 [History] Docusate [Colace] 100 mg PO BID #0 10/26/16 [Rx] Ferrous Gluconate 324 mg PO DAILY #30 10/26/16 [Rx] Glucagon, Human Recombinant [Glucagen] 1 mg IM ONCE PRN vial 10/26/16 [Rx] hydrALAZINE [HydrALAZINE] 50 mg PO Q6HR tab 10/26/16 [Rx] Lactose-Reduced Food [Ensure Original] 1 bottle PO DAILY 12/23/16 [History] Polyethylene Glycol 3350 [MiraLAX] 17 gm PO BID 12/23/16 [History] glipiZIDE [Glucotrol] 5 mg PO BID 12/23/16 [History] Furosemide [Lasix] 40 mg PO BID #20 tab 12/28/16 [Rx] Lisinopril [Zestril] 10 mg PO BID tab 12/28/16 [Rx] NIFEdipine XL (24 HR) [Procardia XL] 60 mg PO DAILY 12/28/16 [Rx] Ondansetron HCl [Zofran] 4 mg PO Q8H PRN #10 tablet 12/28/16 [Rx] OxyCODONE Immed Rel [Roxicodone 5 MG] 5 mg PO Q8HR PRN #20 12/28/16 [Rx] clonazePAM [Klonopin] 1 mg PO HS #10 12/28/16 [Rx] Allergies/Adverse Reactions: 3 Allergy/AdvReac Type Severity Reaction Status Date / Time codeine Allergy Rash Verified 02/24/15 06:48 Penicillins Allergy Rash Verified 02/24/15 06:48 propoxyphene Allergy Rash Verified 10/20/16 10:39 Date of admission: 12/22/16 18:25 Primary care physician: Braden Cintron MD Consults: 12/22/16 19:05 Consult to Nutrition [CONS] Routine Comment: Consulting Provider: NUTRITION Reason for Dietary Consult: MST Score 12/24/16 11:56 Consult to Occupational Therapy [CONS] Routine Comment: Evaluate, develop and implement POC Reason for Consult: evaulate and make recommendations Consult to Physical Therapy [CONS] Routine Comment: Evaluate, develop and implement POC Reason for Consult: evaluate and make recommendations 12/27/16 13:22 Consult to Pulmonology [CONS] Routine Consulting Provider: Pulm [facility]ana Reason for Consult: recurrent pleural effusion Call Completed: Yes Discharging clinician: Liyah Avila Anticipated date of discharge: 12/28/16 - Patient Status Disposition: Transfer SNF Condition: Good Functional capacity at discharge: uses cane/walker Overall status at discharge: patient is back to baseline - Discharge Instructions Follow Up With: Braden Cintron MD [Primary Care Provider] - Additional Instructions: Please follow up with your primary care physician and car rental agency manager within one week after your discharge from the hospital. Please closely monitor your blood pressure. You home medications have been readjusted. your home dose of amlodipine has been discontinued and you are started on nifedipine once a day. please continue to wear oxygen at all time. Please seek medical help immediately if you have difficulty breathing. Resume all your home medications as prescribed by your primary care physician. - Diet and Activity Activity: as per physical therapy, wear oxygen at all times, wear oxygen at night Diet: low salt diet Hospital course: Ms. Villalobos is a 81 year old female with PMH of uncontrolled HTN, CKD, s/p closed left ankle fracture repair who was sent from the [place] for evaluation of abdominal pain. Pt was found to have distended abd due to fluid overload along with bilateral pleural effusion. She has underlying CKD with proteinuria for which nephrology followed the patient. Pt underwent thoracentesis which improved her presenting symptoms and was started on lasix. Her pleural effusion reoccurred due to which pulmonology was involved. The nature of her pleural fluid was transudative and it could be secondary to her underlying CHF/ nephrotic syndrome. Since patient has been saturating well on nasal cannula and in no clinical distress, no further intervention was recommended by pulm at this time. Pt also had hard to control BP throughout the course of her hospitalization. Her home antihypertensive medications were re-adjusted with better bp control. At this time, she is stable for discharge to ECF. - Time Spent with Patient Total time spent providing and/or coordinating discharge services: Greater than 30 minutes - Constitutional Vitals: Temp Pulse Resp BP Pulse Ox 98.8 F 68 17 124/75 96 12/28/16 14:10 12/28/16 14:10 12/28/16 14:10 12/28/16 14:10 12/28/16 14:10 General appearance: Present: A&O X 3 (frail appearing elderly female), no acute distress, answers questions appropriately - Head Head exam: Present: atraumatic, normocephalic - Eye Eye exam: Present: conjuntiva pink, sclera anicteric - Respiratory Respiratory exam: Absent: respiratory distress, wheezes - Cardiovascular Cardiovascular exam: Present: RRR, +S1, +S2. Absent: diastolic murmur, gallop, rubs, systolic murmur - GI/Abdominal GI/Abdominal exam: Present: normal bowel sounds, soft, no peritoneal signs. Absent: distended, tenderness - Extremities Exam Extremities exam: Present: warm, radial pulses palpable and symmetrical. Absent : calf tenderness - Neurological Exam Neurological exam: Present: alert, oriented X3
--- NOTE | 2016-12-28 15:07 | Physician Discharge Referral ---
[facility] Referral Info Transfer To: F Provider in Charge after Transfer: PCP - Diagnosis (1) Bilateral pleural effusion Priority: Primary Status: Acute (2) CKD (chronic kidney disease) stage 3, GFR 30-59 ml/min Priority: Secondary Status: Chronic (3) Anasarca associated with disorder of kidney Priority: Primary Status: Chronic (4) Anemia Priority: Secondary Status: Acute (5) Anxiety Priority: Secondary Status: Chronic (6) Closed left ankle fracture Priority: Secondary Status: Chronic (7) Congestive heart failure Priority: Secondary Status: Chronic (8) Depression Priority: Secondary Status: Chronic (9) Diabetes mellitus Priority: Secondary Status: Chronic (10) DVT prophylaxis Priority: Secondary Status: Acute (11) HTN (hypertension) Priority: Secondary Status: Chronic (12) 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 - Transfer Medications Prescriptions: OxyCODONE Immed Rel [Roxicodone 5 MG] 5 mg PO Q8HR PRN #20 PRN Reason: Pain clonazePAM [Klonopin] 1 mg PO HS #10 Furosemide [Lasix] 40 mg PO BID #20 tab Ondansetron HCl [Zofran] 4 mg PO Q8H PRN #10 tablet PRN Reason: Nausea And Vomiting Home Medications: Atorvastatin [Lipitor] 40 mg PO DAILY 12/13/14 [History] Citalopram Hydrobromide [Celexa] 20 mg PO DAILY 12/13/14 [History] Aspirin/Dipyridamole [Aggrenox 25 mg-200 mg Capsule] 1 cap PO BID 04/23/16 [ History] Carvedilol [Coreg] 25 mg PO BID 04/23/16 [History] Quetiapine Fumarate [Seroquel] 25 mg PO HS 04/23/16 [History] Sertraline [Zoloft] 50 mg PO DAILY 04/23/16 [History] Memantine HCl 10 mg PO DAILY 10/20/16 [History] Docusate [Colace] 100 mg PO BID #0 10/26/16 [Rx] Ferrous Gluconate 324 mg PO DAILY #30 10/26/16 [Rx] Glucagon, Human Recombinant [Glucagen] 1 mg IM ONCE PRN vial 10/26/16 [Rx] hydrALAZINE [HydrALAZINE] 50 mg PO Q6HR tab 10/26/16 [Rx] Lactose-Reduced Food [Ensure Original] 1 bottle PO DAILY 12/23/16 [History] Polyethylene Glycol 3350 [MiraLAX] 17 gm PO BID 12/23/16 [History] glipiZIDE [Glucotrol] 5 mg PO BID 12/23/16 [History] Furosemide [Lasix] 40 mg PO BID #20 tab 12/28/16 [Rx] Lisinopril [Zestril] 10 mg PO BID tab 12/28/16 [Rx] NIFEdipine XL (24 HR) [Procardia XL] 60 mg PO DAILY 12/28/16 [Rx] Ondansetron HCl [Zofran] 4 mg PO Q8H PRN #10 tablet 12/28/16 [Rx] OxyCODONE Immed Rel [Roxicodone 5 MG] 5 mg PO Q8HR PRN #20 12/28/16 [Rx] clonazePAM [Klonopin] 1 mg PO HS #10 12/28/16 [Rx] Allergies/Adverse Reactions: 3 Allergy/AdvReac Type Severity Reaction Status Date / Time codeine Allergy Rash Verified 02/24/15 06:48 Penicillins Allergy Rash Verified 02/24/15 06:48 propoxyphene Allergy Rash Verified 10/20/16 10:39 - Respiratory Orders Oxygen / L per min (3L/min) Smoking Cessation: Smoking cessation has been advised. For more information, call the [employer] Tobacco Quit Line at 0-247-ITGR-NOW. - Treatments List/Other: Please follow up with your primary care physician and systems architecture analyst within one week after your discharge from the hospital. Please closely monitor your blood pressure. You home medications have been readjusted. your home dose of amlodipine has been discontinued and you are started on nifedipine once a day. please continue to wear oxygen at all time. Please seek medical help immediately if you have difficulty breathing. Resume all your home medications as prescribed by your primary care physician. - Diet Orders House Supplement per Dietary: please add ensure to diet CERTIFICATION: I certify that the transfer of the above named patient to an Extended Care Facility is necessary for the continuing treatment of the diagnosis listed. The above information is true and accurate reflection of patient's current condition. Confidential - Redisclosure prohibited without a patient's written consent.
[2016-12-28] MEDS: clonazePAM 1 MG TABLET PO SCH (22:06)
[2016-12-29] MEDS: hydrALAZINE 25 MG TABLET PO SCH ×3 (00:23→12:46)
[2016-12-29] MEDS: *HR* Heparin 5,000 UNIT/ML VIAL SQ SCH (05:47)
[2016-12-29 08:19] LABS: Basophils % 0.3 %; Eosinophils # 0.1 K/mcL (0.0-0.6); Hematocrit 28.4 % (35.3-44.9); Hemoglobin 8.7 g/dL (11.5-15.4); Immature Granulocytes % 0.9 % (0-4); Lymphocytes # 0.6 K/mcL (0.6-4.6); Lymphocytes % 16.5 %; Mean Corpuscular HGB Conc 30.6 g/dL (31.6-35.5); Mean Corpuscular Hemoglobin 28.7 pg (28.0-33.3); Mean Corpuscular Volume 93.7 fL (83.0-100.0); Mean Platelet Volume 9.6 fL (9.4-12.4); Monocytes # 0.4 K/mcL (0.0-1.3); Monocytes % 11.4 %; Neutrophils # 2.4 K/mcL (1.6-8.9); Platelet Count 124 K/mcL (140-400); Red Blood Count 3.03 M/mcL (3.82-4.97); Red Cell Distribution Width 13.3 % (11.5-14.5); Segmented Neutrophils % 68.9 %
[2016-12-29 08:42] LABS: Albumin 2.7 g/dL (3.5-5.0); Albumin/Globulin Ratio 1.1 (1.1-2.2); Bilirubin,Total 0.7 mg/dL (0.2-1.2); Calcium 10.1 mg/dL (8.6-10.8); Globulin 2.5 g/dL (2.4-3.5); Potassium 4.1 mEq/L (3.5-4.5); Total Protein 5.2 g/dL (6.0-8.3)
--- NOTE | 2016-12-29 09:04 | Nephrology Progress Note ---
Date of Encounter: 12/29/16 Time of Encounter: 08:25 - Assessment and Plan (1) Renal insufficiency Current Visit: Yes Status: Acute CKD 3, history of proteinuria. Today labs pending. 24 hour urine protein 1.3 gms , same as prior. Not nephrotic range. Do not believe recurring pleural effusions in setting of nephrotic syndrome. Appreciate pulmonary consult. Subjective Interval history: Sitting up in bed, eating breakfast. States breathing easier today. No new complaints. Objective - Vital Signs Vital signs: Vital Signs Temp Pulse Resp BP Pulse Ox 12/29/16 07:17 98.4 F 73 16 162/65 97 12/29/16 04:50 98.1 F 71 16 162/66 96 12/28/16 23:52 98.3 F 61 15 131/65 97 12/28/16 20:28 98.8 F 66 16 162/66 97 12/28/16 17:32 109/52 12/28/16 14:10 98.8 F 68 17 124/75 96 12/28/16 11:16 98.0 F 74 18 154/63 95 Intake and Output 12/28/16 12/29/16 12/29/16 23:59 07:59 15:59 Intake Total 0 / 0 0 / 0 Output Total 350 / 350 600 / 600 Balance -350 / -350 -600 / -600 Intake: Oral 0 / 0 0 / 0 Output: Urine 350 / 350 600 / 600 Other: Meal Dinner Percent of Meal Consumed 0% Stool Size Small Stool Consistency loose Stool Color Black # Bowel Movements 0 Blood Glucose* 153 123 - General Appearance General appearance: Present: appears started age, chronically ill, frail EENT: Present: mucous membranes moist Neck: Present: no JVD Respiratory: Present: clear Additional Comments: diminished Cardiology: Present: no edema, regular rate, regular rhythm Gastrointestinal: Present: normoactive bowel sounds, no tenderness Integumentary: Present: warm and dry Neurologic: Present: alert and oriented x3 Psychiatric: Present: mood/affect appropriate, cooperative - Lab 12/29/16 08:01 12/28/16 05:26 Most recent lab results Calcium 10.4 mg/dL (8.6-10.8) 12/28/16 05:26 Phosphorus 3.0 mg/dL (2.3-4.7) 12/28/16 05:26 Magnesium 2.0 mg/dL (1.6-2.6) 12/28/16 05:26 Urine Creatinine 36 mg/dL 12/24/16 01:31 Ur Total Protein 24 Hr 1376 mg/day (0-299) H 12/24/16 01:31 Urine Total Protein 99 mg/dL (1-14) H 12/24/16 01:31 Consult Discharge Plan - Plan Additional Instructions: Please follow up with your primary care physician and settlement processor within one week after your discharge from the hospital. Please closely monitor your blood pressure. You home medications have been readjusted. your home dose of amlodipine has been discontinued and you are started on nifedipine once a day. please continue to wear oxygen at all time. Please seek medical help immediately if you have difficulty breathing. Resume all your home medications as prescribed by your primary care physician. Referrals: Braden Cintron MD [Primary Care Provider] - Prescriptions: OxyCODONE Immed Rel [Roxicodone 5 MG] 5 mg PO Q8HR PRN #20 PRN Reason: Pain clonazePAM [Klonopin] 1 mg PO HS #10 Furosemide [Lasix] 40 mg PO BID #20 tab Ondansetron HCl [Zofran] 4 mg PO Q8H PRN #10 tablet PRN Reason: Nausea And Vomiting
[2016-12-29] MEDS: Furosemide 40 MG/4 ML VIAL IVP SCH (09:14)
[2016-12-29] MEDS: NIFEdipine XL (24 HR) 60 MG TAB.ER.24 PO SCH (09:14)
[2016-12-29] MEDS: Spironolactone 25 MG TABLET PO SCH (09:14)
[2016-12-29] MEDS: Insulin LISPRO 300 UNITS/3 ML VIAL SQ SCH ×2 (09:15→12:48)
[2016-12-29 09:36] LABS: Phosphorous 3.3 mg/dL (2.3-4.7)
--- NOTE | 2016-12-29 10:34 | Internal Med Progress Note ---
Date of Encounter: 12/29/16 Time of Encounter: 10:33 - Assessment and plan (1) Bilateral pleural effusion Current Visit: Yes Status: Acute (2) CKD (chronic kidney disease) stage 3, GFR 30-59 ml/min Current Visit: Yes Status: Chronic (3) Anasarca associated with disorder of kidney Current Visit: Yes Status: Chronic (4) Anemia Current Visit: No Status: Acute Qualifiers: Anemia type: iron deficiency Iron deficiency anemia type: chronic blood loss Qualified Code(s): D50.0 - Iron deficiency anemia secondary to blood loss (chronic) (5) Anxiety Current Visit: Yes Status: Chronic (6) Closed left ankle fracture Current Visit: Yes Status: Chronic (7) Congestive heart failure Current Visit: Yes Status: Chronic Qualifiers: Congestive heart failure type: diastolic Congestive heart failure chronicity: unspecified congestive heart failure chronicity Qualified Code(s) : I50.30 - Unspecified diastolic (congestive) heart failure (8) Depression Current Visit: Yes Status: Chronic Qualifiers: Depression Type: unspecified Qualified Code(s): F32.9 - Major depressive disorder, single episode, unspecified (9) Diabetes mellitus Current Visit: Yes Status: Chronic Qualifiers: Diabetes mellitus type: type 2 Diabetes mellitus complication status: with kidney complications Diabetes mellitus complication detail: with chronic kidney disease Diabetes mellitus long-term insulin use: with long-term use Chronic kidney disease stage: stage 3 (moderate) Qualified Code(s): E11.22 - Type 2 diabetes mellitus with diabetic chronic kidney disease; N18.3 - Chronic kidney disease, stage 3 (moderate); 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 Resting comfortably in bed and denies any pain at this time. States she feels better compared to previous day. No overnight events reported Pt was discharged to ECF, d/c pending ECF placement. Likely d/c to ECF today - Constitutional Vitals: Temp Pulse Resp BP Pulse Ox 98.4 F 73 16 162/65 97 12/29/16 07:17 12/29/16 07:17 12/29/16 07:17 12/29/16 07:17 12/29/16 07:17 General appearance: Present: A&O X 3 (frail appearing elderly female), no acute distress, answers questions appropriately - Head Head exam: Present: atraumatic, normocephalic - Eye Eye exam: Present: conjuntiva pink, sclera anicteric - Respiratory Respiratory exam: Absent: respiratory distress, wheezes - Cardiovascular Cardiovascular exam: Present: RRR, +S1, +S2. Absent: diastolic murmur, gallop, rubs, systolic murmur - GI/Abdominal GI/Abdominal exam: Present: normal bowel sounds, soft, no peritoneal signs. Absent: distended, tenderness - Extremities Exam Extremities exam: Present: warm, radial pulses palpable and symmetrical. Absent : calf tenderness - Neurological Exam Neurological exam: Present: alert, oriented X3 Internal Medicine: Result - Labs CBC & Chem 7: 12/29/16 08:01 12/29/16 08:01 Labs: Short CBC 12/29/16 Range/Units 08:01 WBC 3.5 L (4.3-11.1) K/mcL Hgb 8.7 L (11.5-15.4) g/dL Hct 28.4 L (35.3-44.9) % Plt Count 124 L (140-400) K/mcL Neutrophils # 2.4 (1.6-8.9) K/mcL BMP 12/29/16 08:01 Sodium 135 L Potassium 4.1 Chloride 99 Carbon Dioxide 31 H BUN 23 H Creatinine 1.95 H Glucose 111 H Calcium 10.1 Liver Function 12/29/16 Range/Units 08:01 Total Bilirubin 0.7 (0.2-1.2) mg/dL AST 13 (5-34) Units/L ALT 7 (0-55) Units/L Alkaline Phosphatase 48 (38-126) Units/L Albumin 2.7 L (3.5-5.0) g/dL Consult Discharge Plan - Plan Additional Instructions: Please follow up with your primary care physician and animal ride manager within one week after your discharge from the hospital. Please closely monitor your blood pressure. You home medications have been readjusted. your home dose of amlodipine has been discontinued and you are started on nifedipine once a day. please continue to wear oxygen at all time. Please seek medical help immediately if you have difficulty breathing. Resume all your home medications as prescribed by your primary care physician. Referrals: Braden Cintron MD [Primary Care Provider] - Prescriptions: OxyCODONE Immed Rel [Roxicodone 5 MG] 5 mg PO Q8HR PRN #20 PRN Reason: Pain clonazePAM [Klonopin] 1 mg PO HS #10 Furosemide [Lasix] 40 mg PO BID #20 tab Ondansetron HCl [Zofran] 4 mg PO Q8H PRN #10 tablet PRN Reason: Nausea And Vomiting
[2016-12-29 10:51] VITALS: BP 145/55
== END 2016-12-29 14:05 | DRG 292 ==
LOC: 3ANU 14:38 → EMEROO 14:38 → 3ANU 18:24 → SUATTDRO 18:25 → 3ANU 18:31
PROVIDERS: ADMIT Internal Medicine; ATTEND Internal Medicine

== ENCOUNTER 2019-04-07 08:59 | Inpatient (IN) ==
[2019-04-07] MEDS ORDERED: Ondansetron 4 MG/2 ML VIAL IVP ONE (09:20)
[2019-04-07] MEDS ORDERED: *HR* FentaNYL (PF) 100 MCG/2 ML VIAL IVP ONE (09:20)
[2019-04-07] MEDS: 0.9 % Sodium Chloride 1,000 ML IVC SCH ×2 (10:24→20:16)
[2019-04-07 10:45] LABS: Bilirubin,Urine Negative (Negative); Blood,Urine Negative (Negative); Clarity,Urine Cloudy (Clear); Color,Urine Yellow (Yellow); Glucose,Urine (UA) Normal (Normal); Ketones,Urine Negative (Negative); Leukocyte Esterase,Urine Large (Negative); Nitrite,Urine Positive (Negative); PH,Urine 6.5 pH Units (5.0-8.0); Protein,Urine Negative (Neg-Trace); Specific Gravity,Urine 1.012 (1.010-1.025); Urobilinogen,Urine Normal (Normal)
[2019-04-07 10:48] LABS: Bacteria,Urine Many per hpf (None-Few); Hyaline Casts,Urine None Seen per lpf (None-Few); RBC,Urine 0-3 per hpf (0-3); Squamous Epithelial Cell,Urine None Seen per lpf (None-Few); WBC,Urine 50-100 per hpf (0-3)
[2019-04-07] MEDS ORDERED: cefTRIAXone 1,000 MG in Water for inj. (sterile) 10 ML IVP ONE (10:55)
[2019-04-07 10:58] LABS: Prothrombin Time 11.1 Seconds (9.4-12.1)
[2019-04-07 11:00] LABS: Basophils % 0.1 %; Eosinophils % 0.3 %; Hematocrit 29.3 % (35.3-44.9); Hemoglobin 9.7 g/dL (11.5-15.4); Immature Granulocytes % 0.7 % (0-4); Lymphocytes # 0.6 K/mcL (0.6-4.6); Lymphocytes % 6.6 %; Mean Corpuscular HGB Conc 33.1 g/dL (31.6-35.5); Mean Corpuscular Hemoglobin 30.4 pg (28.0-33.3); Mean Corpuscular Volume 91.8 fL (83.0-100.0); Mean Platelet Volume 9.3 fL (9.4-12.4); Monocytes # 0.6 K/mcL (0.0-1.3); Monocytes % 6.8 %; Neutrophils # 7.4 K/mcL (1.6-8.9); Platelet Count 199 K/mcL (140-400); Red Blood Count 3.19 M/mcL (3.82-4.97); Red Cell Distribution Width 13.4 % (11.5-14.5); Segmented Neutrophils % 85.5 %; White Blood Count 8.7 K/mcL (4.3-11.1)
[2019-04-07 11:01] LABS: Activated Partial Thrombo Time 33.1 Seconds (26.0-36.0)
[2019-04-07 11:10] LABS: Calcium 10.3 mg/dL (8.6-10.3); Potassium 4.2 mEq/L (3.5-5.1)
[2019-04-07] MEDS ORDERED: Naloxone 0.4 MG/ML INJ IVP PRN (12:13)
[2019-04-07] MEDS ORDERED: Dextrose Gel 15 GM/37.5 ML TUBE PO PRN ×2 (12:51)
[2019-04-07] MEDS ORDERED: *HR* Dextrose 50 % in Water (Syg) 50 ML SYRINGE IVP PRN (12:51)
[2019-04-07] MEDS ORDERED: D5% in Water 1,000 ML IVC PRN (12:51)
[2019-04-07] MEDS: carvediloL 25 MG TABLET PO SCH ×2 (15:40→17:23)
[2019-04-07] MEDS: NIFEdipine XL (24 HR) 60 MG TAB.ER.24 PO SCH (15:41)
[2019-04-07] MEDS: Ipratropium/Albuterol Neb 3 ML IH SCH ×2 (16:12→22:07)
[2019-04-07] MEDS ORDERED: *HR* Labetalol 20 MG/4 ML SYRINGE IVP PRN (17:22)
[2019-04-07] MEDS: Insulin LISPRO 300 UNITS/3 ML VIAL SQ SCH (18:21)
[2019-04-07] MEDS: hydrALAZINE 25 MG TABLET PO SCH (18:22)
[2019-04-07] MEDS: Venlafaxine XR (24 HR) 37.5 MG CAP.ER.24H PO SCH (20:16)
[2019-04-07] MEDS ORDERED: *HR* HYDROmorphone 2 MG TABLET PO ONE (20:26)
[2019-04-07] MEDS: *HR* Heparin 5,000 UNIT/ML VIAL SQ SCH (20:50)
[2019-04-08] MEDS: hydrALAZINE 25 MG TABLET PO SCH ×4 (00:43→17:46)
[2019-04-08] MEDS: Insulin LISPRO 300 UNITS/3 ML VIAL SQ SCH ×4 (00:44→17:46)
[2019-04-08] MEDS: Ipratropium/Albuterol Neb 3 ML IH SCH ×4 (03:49→22:31)
[2019-04-08] MEDS: 0.9 % Sodium Chloride 1,000 ML IVC SCH ×2 (06:06→13:10)
[2019-04-08] MEDS: *HR* Heparin 5,000 UNIT/ML VIAL SQ SCH ×3 (06:06→20:40)
[2019-04-08 06:35] LABS: Basophils % 0.2 %; Eosinophils % 0.2 %; Hematocrit 23.8 % (35.3-44.9); Immature Granulocytes % 0.5 % (0-4); Lymphocytes # 0.8 K/mcL (0.6-4.6); Mean Corpuscular HGB Conc 31.1 g/dL (31.6-35.5); Mean Corpuscular Volume 96.4 fL (83.0-100.0); Mean Platelet Volume 9.4 fL (9.4-12.4); Monocytes # 0.8 K/mcL (0.0-1.3); Monocytes % 11.9 %; Neutrophils # 4.7 K/mcL (1.6-8.9); Platelet Count 176 K/mcL (140-400); Red Blood Count 2.47 M/mcL (3.82-4.97); Red Cell Distribution Width 13.5 % (11.5-14.5); Segmented Neutrophils % 74.2 %; White Blood Count 6.3 K/mcL (4.3-11.1)
[2019-04-08 06:36] LABS: Hemoglobin 7.4 g/dL (11.5-15.4)
[2019-04-08 06:45] LABS: Prothrombin Time 11.3 Seconds (9.4-12.1)
[2019-04-08 06:52] LABS: Albumin 3.1 g/dL (3.5-5.7); Albumin/Globulin Ratio 1.2 (1.1-2.2); Bilirubin,Total 0.6 mg/dL (0.3-1.0); Calcium 9.6 mg/dL (8.6-10.3); Globulin 2.6 g/dL (2.4-3.5); Magnesium 2.3 mg/dL (1.6-2.6); Phosphorous 3.3 mg/dL (2.7-4.5); Potassium 4.2 mEq/L (3.5-5.1); Total Protein 5.7 g/dL (6.4-8.9)
[2019-04-08] MEDS: cefTRIAXone 1,000 MG in Water for inj. (sterile) 10 ML IVP SCH (08:15)
[2019-04-08] MEDS: NIFEdipine XL (24 HR) 60 MG TAB.ER.24 PO SCH (08:16)
[2019-04-08] MEDS: Cyanocobalamin (B-12) 1,000 MCG TABLET PO SCH (08:16)
[2019-04-08] MEDS: Venlafaxine XR (24 HR) 37.5 MG CAP.ER.24H PO SCH ×2 (08:16→20:40)
[2019-04-08] MEDS: carvediloL 25 MG TABLET PO SCH ×2 (08:16→17:46)
[2019-04-08] MEDS ORDERED: 0.9 % Sodium Chloride 250 ML ONE (21:55)
[2019-04-09] MEDS: Insulin LISPRO 300 UNITS/3 ML VIAL SQ SCH ×5 (00:23→23:46)
[2019-04-09] MEDS: hydrALAZINE 25 MG TABLET PO SCH ×5 (00:28→23:42)
[2019-04-09 02:56] LABS: Basophils % 0.3 %; Eosinophils % 0.1 %; Hematocrit 23.9 % (35.3-44.9); Hemoglobin 7.5 g/dL (11.5-15.4); Immature Granulocytes % 1.1 % (0-4); Lymphocytes # 0.7 K/mcL (0.6-4.6); Lymphocytes % 9.6 %; Mean Corpuscular HGB Conc 31.4 g/dL (31.6-35.5); Mean Corpuscular Hemoglobin 29.9 pg (28.0-33.3); Mean Corpuscular Volume 95.2 fL (83.0-100.0); Mean Platelet Volume 9.3 fL (9.4-12.4); Monocytes # 0.6 K/mcL (0.0-1.3); Monocytes % 8.5 %; Neutrophils # 6.1 K/mcL (1.6-8.9); Platelet Count 147 K/mcL (140-400); Red Blood Count 2.51 M/mcL (3.82-4.97); Red Cell Distribution Width 14.5 % (11.5-14.5); Segmented Neutrophils % 80.4 %; White Blood Count 7.5 K/mcL (4.3-11.1)
[2019-04-09 03:18] LABS: Calcium 9.5 mg/dL (8.6-10.3); Potassium 4.7 mEq/L (3.5-5.1)
[2019-04-09] MEDS: Ipratropium/Albuterol Neb 3 ML IH SCH ×4 (04:42→22:20)
[2019-04-09] MEDS ORDERED: 0.9 % Sodium Chloride 250 ML ONE ×2 (04:49→10:51)
[2019-04-09] MEDS: *HR* Heparin 5,000 UNIT/ML VIAL SQ SCH ×2 (05:09→15:33)
[2019-04-09] MEDS: Cyanocobalamin (B-12) 1,000 MCG TABLET PO SCH (07:41)
[2019-04-09] MEDS: NIFEdipine XL (24 HR) 60 MG TAB.ER.24 PO SCH (08:45)
[2019-04-09] MEDS: carvediloL 25 MG TABLET PO SCH ×2 (08:46→19:21)
[2019-04-09] MEDS: Venlafaxine XR (24 HR) 37.5 MG CAP.ER.24H PO SCH ×2 (08:46→20:44)
[2019-04-09 09:07] LABS: Estimated Average Glucose 120 mg/dl
[2019-04-09] MEDS: cefTRIAXone 1,000 MG in Water for inj. (sterile) 10 ML IVP SCH (09:16)
[2019-04-09] MEDS: 0.9 % Sodium Chloride 1,000 ML IVC SCH (09:17)
[2019-04-09 10:23] LABS: Hematocrit 27.3 % (35.3-44.9); Hemoglobin 8.8 g/dL (11.5-15.4)
[2019-04-09] MEDS ORDERED: Lidocaine -MPF 2% 2 ML VIAL ONE (13:01)
[2019-04-09] MEDS ORDERED: *HR* Propofol 200 MG/20 ML VIAL IVP ONE (13:01)
[2019-04-09] MEDS ORDERED: *HR* FentaNYL (PF) 100 MCG/2 ML VIAL ONE ×2 (13:01→15:38)
[2019-04-09] MEDS ORDERED: *HR* Succinylcholine 200 MG/10 ML VIAL IVP ONE (13:02)
[2019-04-09] MEDS ORDERED: *HR* HYDROmorphone (PF) 1 MG/ML SYRINGE IVP PRN (13:19)
[2019-04-09] MEDS ORDERED: *HR* Promethazine 25 MG/ML VIAL IVP PRN (13:19)
[2019-04-09] MEDS ORDERED: *HR* OxyCODONE Immed Rel 5 MG TABLET PO PRN (13:19)
[2019-04-09] MEDS ORDERED: *HR* Labetalol 20 MG/4 ML SYRINGE IVP PRN ×2 (13:19→17:00)
[2019-04-09] MEDS ORDERED: Albuterol 2.5 MG/3 ML NEBULIZER IH PRN ×2 (13:19→17:00)
[2019-04-09] MEDS ORDERED: Ondansetron 4 MG/2 ML VIAL IVP ONE (13:19)
[2019-04-09] MEDS ORDERED: *HR* PHENYLEPHRINE 1,000 MCG/10 ML SYRINGE IVP ONE (13:22)
[2019-04-09] MEDS ORDERED: Lidocaine -MPF 4% 5 ML AMPUL ONE (13:22)
[2019-04-09] MEDS ORDERED: ceFAZolin 2,000 MG in Water for inj. (sterile) 20 ML IVP ONE (13:23)
[2019-04-09] MEDS ORDERED: Dexamethasone 4 MG/ML VIAL ONE (14:10)
[2019-04-09] MEDS ORDERED: Ethanol\\Acetic Acid\\Na Ace\\Ben 1,000 ML IRRIG.SOLN IR ONE (15:07)
[2019-04-09] MEDS ORDERED: Naloxone 0.4 MG/ML INJ IVP PRN ×2 (17:00)
[2019-04-09] MEDS ORDERED: *HR* OxyCODONE/APAP 5/325 TABLET PO PRN (17:00)
[2019-04-09] MEDS ORDERED: Dextrose Gel 15 GM/37.5 ML TUBE PO PRN ×2 (17:00)
[2019-04-09] MEDS ORDERED: *HR* Dextrose 50 % in Water (Syg) 50 ML SYRINGE IVP PRN (17:00)
[2019-04-09] MEDS ORDERED: D5% in Water 1,000 ML IVC PRN (17:00)
[2019-04-09 17:06] LABS: Hematocrit 30.1 % (35.3-44.9); Hemoglobin 10.1 g/dL (11.5-15.4)
[2019-04-09] MEDS ORDERED: Ringers Solution, Lactated 1,000 ML ONE (18:55)
[2019-04-09] MEDS ORDERED: Ringer's Solution, Lactated 250 ML IV.SOLN IVPB SCH (19:00)
[2019-04-09] MEDS: *HR* OxyCODONE Immed Rel 5 MG TABLET PO PRN (23:41)
[2019-04-10] MEDS: Ipratropium/Albuterol Neb 3 ML IH SCH ×4 (03:37→21:02)
[2019-04-10] MEDS: *HR* OxyCODONE Immed Rel 5 MG TABLET PO PRN ×2 (04:09→10:18)
[2019-04-10] MEDS: Insulin LISPRO 300 UNITS/3 ML VIAL SQ SCH ×4 (05:28→20:06)
[2019-04-10] MEDS: hydrALAZINE 25 MG TABLET PO SCH ×4 (05:29→23:21)
[2019-04-10] MEDS ORDERED: Cefuroxime PO 250 MG TABLET PO SCH ×2 (06:00)
[2019-04-10 06:24] LABS: Hematocrit 23.9 % (35.3-44.9); Hemoglobin 7.7 g/dL (11.5-15.4); Mean Corpuscular HGB Conc 32.2 g/dL (31.6-35.5); Mean Corpuscular Hemoglobin 30.1 pg (28.0-33.3); Mean Corpuscular Volume 93.4 fL (83.0-100.0); Mean Platelet Volume 9.7 fL (9.4-12.4); Platelet Count 140 K/mcL (140-400); Red Blood Count 2.56 M/mcL (3.82-4.97); Red Cell Distribution Width 14.7 % (11.5-14.5); White Blood Count 9.5 K/mcL (4.3-11.1)
[2019-04-10 06:32] LABS: Calcium 9.6 mg/dL (8.6-10.3); Potassium 4.6 mEq/L (3.5-5.1)
[2019-04-10] MEDS ORDERED: Furosemide 20 MG/2 ML VIAL IVP ONE (06:40)
[2019-04-10] MEDS ORDERED: 0.9 % Sodium Chloride 250 ML IVC SCH (06:45)
[2019-04-10] MEDS: carvediloL 25 MG TABLET PO SCH ×2 (08:13→16:53)
[2019-04-10] MEDS: Cyanocobalamin (B-12) 1,000 MCG TABLET PO SCH (08:14)
[2019-04-10] MEDS: NIFEdipine XL (24 HR) 60 MG TAB.ER.24 PO SCH (08:14)
[2019-04-10] MEDS: Venlafaxine XR (24 HR) 37.5 MG CAP.ER.24H PO SCH ×2 (08:14→20:01)
[2019-04-10] MEDS ORDERED: cefTRIAXone 1,000 MG in 0.9 % Sodium Chloride Mini Bag 100 ML IVPB SCH (09:00)
[2019-04-10] MEDS: Aspirin Enteric Coated 81 MG Tablet PO SCH (12:18)
[2019-04-10] MEDS ORDERED: cefTRIAXone 1,000 MG in Water for inj. (sterile) 10 ML IVP ONE (16:00)
[2019-04-10] MEDS ORDERED: *HR* Dextrose 50 % in Water (Syg) 50 ML SYRINGE IVP PRN (19:30)
[2019-04-10] MEDS ORDERED: Dextrose Gel 15 GM/37.5 ML TUBE PO PRN ×2 (19:30)
[2019-04-10] MEDS ORDERED: D5% in Water 1,000 ML IVC PRN (19:30)
[2019-04-11] MEDS: Ipratropium/Albuterol Neb 3 ML IH SCH ×4 (03:35→21:49)
[2019-04-11] MEDS: hydrALAZINE 25 MG TABLET PO SCH ×3 (06:06→17:28)
[2019-04-11] MEDS: Insulin LISPRO 300 UNITS/3 ML VIAL SQ SCH ×4 (08:44→21:55)
[2019-04-11] MEDS: Cefuroxime PO 250 MG TABLET PO SCH (08:45)
[2019-04-11] MEDS: *HR* OxyCODONE Immed Rel 5 MG TABLET PO PRN (08:45)
[2019-04-11] MEDS: carvediloL 25 MG TABLET PO SCH ×3 (08:45→19:47)
[2019-04-11] MEDS: Cyanocobalamin (B-12) 1,000 MCG TABLET PO SCH (08:45)
[2019-04-11] MEDS: NIFEdipine XL (24 HR) 60 MG TAB.ER.24 PO SCH (08:46)
[2019-04-11] MEDS: Venlafaxine XR (24 HR) 37.5 MG CAP.ER.24H PO SCH ×2 (08:46→21:02)
[2019-04-11] MEDS: Aspirin Enteric Coated 81 MG Tablet PO SCH (08:46)
[2019-04-11] MEDS ORDERED: Cefuroxime PO 250 MG TABLET PO SCH (09:00)
[2019-04-11 12:10] LABS: Basophils % 0.1 %; Hemoglobin 9.6 g/dL (11.5-15.4); Immature Granulocytes % 1.3 % (0-4); Lymphocytes # 0.5 K/mcL (0.6-4.6); Lymphocytes % 4.9 %; Mean Corpuscular HGB Conc 34.3 g/dL (31.6-35.5); Mean Corpuscular Hemoglobin 30.5 pg (28.0-33.3); Mean Corpuscular Volume 88.9 fL (83.0-100.0); Mean Platelet Volume 9.3 fL (9.4-12.4); Monocytes # 0.9 K/mcL (0.0-1.3); Monocytes % 9.7 %; Neutrophils # 7.9 K/mcL (1.6-8.9); Platelet Count 143 K/mcL (140-400); Red Blood Count 3.15 M/mcL (3.82-4.97); Red Cell Distribution Width 15.2 % (11.5-14.5); White Blood Count 9.5 K/mcL (4.3-11.1)
[2019-04-11 12:27] LABS: Calcium 10.1 mg/dL (8.6-10.3); Potassium 4.2 mEq/L (3.5-5.1)
[2019-04-11] MEDS ORDERED: Naloxone 0.4 MG/ML INJ ONE (15:53)
[2019-04-11] MEDS ORDERED: 0.9 % Sodium Chloride 1,000 ML IVC SCH (16:30)
[2019-04-11] MEDS ORDERED: Isovue-370 500 ML BOTTLE IVP ONE (16:52)
[2019-04-11] MEDS: 0.9 % Sodium Chloride 1,000 ML IVC SCH (18:24)
[2019-04-12 03:16] LABS: Basophils % 0.1 %; Hematocrit 27.5 % (35.3-44.9); Hemoglobin 8.9 g/dL (11.5-15.4); Immature Granulocytes % 0.8 % (0-4); Lymphocytes # 0.5 K/mcL (0.6-4.6); Lymphocytes % 5.7 %; Mean Corpuscular HGB Conc 32.4 g/dL (31.6-35.5); Mean Corpuscular Hemoglobin 30.5 pg (28.0-33.3); Mean Corpuscular Volume 94.2 fL (83.0-100.0); Mean Platelet Volume 9.3 fL (9.4-12.4); Monocytes # 0.7 K/mcL (0.0-1.3); Monocytes % 9.3 %; Neutrophils # 6.6 K/mcL (1.6-8.9); Platelet Count 131 K/mcL (140-400); Red Blood Count 2.92 M/mcL (3.82-4.97); Red Cell Distribution Width 15.1 % (11.5-14.5); Segmented Neutrophils % 84.1 %; White Blood Count 7.9 K/mcL (4.3-11.1)
[2019-04-12 03:21] LABS: Prothrombin Time 11.7 Seconds (9.4-12.1)
[2019-04-12 03:34] LABS: Alanine Aminotransferase 3 Units/L (7-52); Albumin 2.8 g/dL (3.5-5.7); Albumin/Globulin Ratio 1.1 (1.1-2.2); Alkaline Phosphatase 43 Units/L (34-104); Aspartate Amino Transferase 22 Units/L (13-39); BUN/Creatinine Ratio 23 (6-26); Bilirubin,Total 0.7 mg/dL (0.3-1.0); Blood Urea Nitrogen 36 mg/dL (8-23); Calcium 10.2 mg/dL (8.6-10.3); Carbon Dioxide 23 mEq/L (23-29); Chloride 108 mEq/L (98-107); Cholesterol 97 mg/dL (< 200); Globulin 2.6 g/dL (2.4-3.5); Glucose 122 mg/dL (70-105); HDL Cholesterol 32 mg/dL (40-59); LDL Cholesterol,Calculated 45 mg/dL (0-99); Osmolality,Calculated 292 (280-300); Sodium 136 mEq/L (136-145); Total Protein 5.4 g/dL (6.4-8.9); Triglycerides 100 mg/dL (< 150); Troponin I < 0.03 ng/mL (< 0.04); eGFR For African Americans 38 (> 60); eGFR For Non-African Americans 31 (> 60)
[2019-04-12 03:39] LABS: Estimated Average Glucose 123 mg/dl
[2019-04-12] MEDS: Ipratropium/Albuterol Neb 3 ML IH SCH ×4 (04:05→22:06)
[2019-04-12] MEDS: 0.9 % Sodium Chloride 1,000 ML IVC SCH ×2 (04:24→18:36)
[2019-04-12] MEDS: Insulin LISPRO 300 UNITS/3 ML VIAL SQ SCH ×4 (10:01→21:43)
[2019-04-12] MEDS: Cyanocobalamin (B-12) 1,000 MCG TABLET PO SCH (15:42)
[2019-04-12] MEDS: Aspirin 81 MG TAB.CHEW PO SCH (15:42)
[2019-04-12] MEDS: Venlafaxine XR (24 HR) 37.5 MG CAP.ER.24H PO SCH ×2 (15:43→21:43)
[2019-04-12] MEDS: NIFEdipine XL (24 HR) 60 MG TAB.ER.24 PO SCH (15:43)
[2019-04-12] MEDS: carvediloL 25 MG TABLET PO SCH ×2 (15:46→16:04)
[2019-04-12] MEDS: Cefuroxime PO 250 MG TABLET PO SCH (19:08)
[2019-04-13] MEDS: *HR* Labetalol 20 MG/4 ML SYRINGE IVP PRN ×2 (02:41→05:42)
[2019-04-13] MEDS: Ipratropium/Albuterol Neb 3 ML IH SCH ×4 (03:28→22:00)
[2019-04-13] MEDS: 0.9 % Sodium Chloride 1,000 ML IVC SCH (04:27)
[2019-04-13 07:00] LABS: Basophils % 0.2 %; Eosinophils % 0.3 %; Hematocrit 26.4 % (35.3-44.9); Hemoglobin 8.4 g/dL (11.5-15.4); Immature Granulocytes % 1.1 % (0-4); Lymphocytes # 0.5 K/mcL (0.6-4.6); Lymphocytes % 7.9 %; Mean Corpuscular HGB Conc 31.8 g/dL (31.6-35.5); Mean Corpuscular Hemoglobin 29.9 pg (28.0-33.3); Mean Platelet Volume 9.6 fL (9.4-12.4); Monocytes # 0.6 K/mcL (0.0-1.3); Monocytes % 8.6 %; Neutrophils # 5.4 K/mcL (1.6-8.9); Platelet Count 137 K/mcL (140-400); Red Blood Count 2.81 M/mcL (3.82-4.97); Red Cell Distribution Width 14.6 % (11.5-14.5); Segmented Neutrophils % 81.9 %; White Blood Count 6.6 K/mcL (4.3-11.1)
[2019-04-13 07:23] LABS: Calcium 9.6 mg/dL (8.6-10.3); Potassium 3.5 mEq/L (3.5-5.1)
[2019-04-13] MEDS: carvediloL 25 MG TABLET PO SCH ×2 (09:43→16:47)
[2019-04-13] MEDS: Venlafaxine XR (24 HR) 37.5 MG CAP.ER.24H PO SCH ×2 (09:43→20:27)
[2019-04-13] MEDS: Cyanocobalamin (B-12) 1,000 MCG TABLET PO SCH (09:43)
[2019-04-13] MEDS: Aspirin 81 MG TAB.CHEW PO SCH (09:45)
[2019-04-13] MEDS: NIFEdipine XL (24 HR) 60 MG TAB.ER.24 PO SCH (09:45)
[2019-04-13] MEDS: Insulin LISPRO 300 UNITS/3 ML VIAL SQ SCH ×4 (09:48→19:44)
[2019-04-14 02:00] LABS: Basophils % 0.2 %; Eosinophils # 0.1 K/mcL (0.0-0.6); Eosinophils % 0.8 %; Hemoglobin 8.6 g/dL (11.5-15.4); Immature Granulocytes % 1.6 % (0-4); Lymphocytes # 0.6 K/mcL (0.6-4.6); Lymphocytes % 10.5 %; Mean Corpuscular HGB Conc 33.1 g/dL (31.6-35.5); Mean Corpuscular Hemoglobin 29.9 pg (28.0-33.3); Mean Corpuscular Volume 90.3 fL (83.0-100.0); Mean Platelet Volume 9.5 fL (9.4-12.4); Monocytes # 0.6 K/mcL (0.0-1.3); Monocytes % 9.2 %; Neutrophils # 4.7 K/mcL (1.6-8.9); Platelet Count 152 K/mcL (140-400); Red Blood Count 2.88 M/mcL (3.82-4.97); Red Cell Distribution Width 14.5 % (11.5-14.5); Segmented Neutrophils % 77.7 %; White Blood Count 6.1 K/mcL (4.3-11.1)
[2019-04-14 02:17] LABS: Calcium 9.8 mg/dL (8.6-10.3); Potassium 3.7 mEq/L (3.5-5.1)
[2019-04-14] MEDS: Ipratropium/Albuterol Neb 3 ML IH SCH ×4 (04:06→22:09)
[2019-04-14] MEDS: Insulin LISPRO 300 UNITS/3 ML VIAL SQ SCH ×4 (07:54→21:40)
[2019-04-14] MEDS: NIFEdipine XL (24 HR) 60 MG TAB.ER.24 PO SCH (10:17)
[2019-04-14] MEDS: Aspirin 81 MG TAB.CHEW PO SCH (10:17)
[2019-04-14] MEDS: carvediloL 25 MG TABLET PO SCH ×2 (10:17→18:23)
[2019-04-14] MEDS: Venlafaxine XR (24 HR) 37.5 MG CAP.ER.24H PO SCH ×2 (10:18→21:08)
[2019-04-14] MEDS: Cyanocobalamin (B-12) 1,000 MCG TABLET PO SCH (10:18)
[2019-04-14] MEDS ORDERED: Lidocaine Viscous Oral Soln 15 ML SOLUTION MM PRN (14:35)
[2019-04-14] MEDS ORDERED: 0.9 % Sodium Chloride 500 ML IVC ONE (14:35)
[2019-04-14] MEDS: *HR* FentaNYL (PF) 100 MCG/2 ML VIAL IVP PRN ×3 (15:00→15:15)
[2019-04-14] MEDS: *HR* Midazolam HCl 5 MG/5 ML VIAL IVP PRN ×4 (15:00→15:25)
[2019-04-15] MEDS: Ipratropium/Albuterol Neb 3 ML IH SCH ×3 (04:24→16:07)
[2019-04-15] MEDS: Venlafaxine XR (24 HR) 37.5 MG CAP.ER.24H PO SCH (08:30)
[2019-04-15] MEDS: NIFEdipine XL (24 HR) 60 MG TAB.ER.24 PO SCH (08:30)
[2019-04-15] MEDS: Insulin LISPRO 300 UNITS/3 ML VIAL SQ SCH ×2 (08:30→13:51)
[2019-04-15] MEDS: carvediloL 25 MG TABLET PO SCH (08:31)
[2019-04-15] MEDS: Aspirin 81 MG TAB.CHEW PO SCH (08:31)
[2019-04-15] MEDS: Cyanocobalamin (B-12) 1,000 MCG TABLET PO SCH (08:31)
[2019-04-15 15:42] VITALS: BP 147/59
== END 2019-04-15 18:40 | DRG 480 ==
LOC: EMEROOARM 08:59 → 3NENU 13:47 → SUATTDRO 13:47 → 3NENU 13:49 → 2NENU 04-11 17:15
PROVIDERS: ADMIT Internal Medicine; ATTEND Pharmacist

== ENCOUNTER 2021-08-29 18:09 | Inpatient (IN) ==
[2021-08-29] MEDS ORDERED: Pantoprazole 40 MG VIAL IVP ONE (18:23)
[2021-08-29 19:54] LABS: Eosinophils % 2.3 %; Mean Platelet Volume 10.1 fL (9.4-12.4); Platelet Count 213 K/mcL (140-400)
[2021-08-29 19:55] LABS: Basophils % 0.4 %; Eosinophils # 0.1 K/mcL (0.0-0.6); Hematocrit 24.1 % (35.3-44.9); Hemoglobin 6.5 g/dL (11.5-15.4); Immature Granulocytes % 1.6 % (0-4); Lymphocytes # 0.7 K/mcL (0.6-4.6); Lymphocytes % 12.1 %; Mean Corpuscular Hemoglobin 26.4 pg (28.0-33.3); Monocytes # 0.5 K/mcL (0.0-1.3); Monocytes % 8.4 %; Neutrophils # 4.3 K/mcL (1.6-8.9); Red Blood Count 2.46 M/mcL (3.82-4.97); Segmented Neutrophils % 75.2 %; White Blood Count 5.7 K/mcL (4.3-11.1)
[2021-08-29 20:01] LABS: Influenza A PCR Negative (Negative); Influenza B PCR Negative (Negative); Resp. Syncytial Virus PCR Negative (Negative)
[2021-08-29 20:02] LABS: SARS-CoV-2 by PCR (In House) Negative (Negative)
[2021-08-29 20:06] LABS: INR 1.1; Prothrombin Time 12.1 Seconds (9.4-12.1)
[2021-08-29 20:07] LABS: BUN/Creatinine Ratio 25 (6-26); Bilirubin,Total 0.4 mg/dL (0.3-1.0); Blood Urea Nitrogen 41 mg/dL (8-23); Calcium 8.8 mg/dL (8.6-10.3); Carbon Dioxide 30 mEq/L (23-29); Chloride 106 mEq/L (98-107); Glucose 265 mg/dL (70-105); Osmolality,Calculated 307 (280-300); Potassium 4.3 mEq/L (3.5-5.1); Sodium 139 mEq/L (136-145); eGFR For African Americans 37 (> 60); eGFR For Non-African Americans 30 (> 60)
[2021-08-29 20:08] LABS: Alanine Aminotransferase 6 Units/L (7-52); Albumin 3.3 g/dL (3.5-5.7); Albumin/Globulin Ratio 1.3 (1.1-2.2); Alkaline Phosphatase 127 Units/L (34-104); Aspartate Amino Transferase 8 Units/L (13-39); Bilirubin,Indirect 0.4 mg/dL (0.0-1.0); Globulin 2.5 g/dL (2.4-3.5); Total Protein 5.8 g/dL (6.4-8.9)
[2021-08-29 20:09] LABS: Activated Partial Thrombo Time 29.5 Seconds (26.0-36.0)
[2021-08-29 20:14] LABS: Troponin I < 0.03 ng/mL (< 0.04)
[2021-08-29 20:20] LABS: Platelet Estimate Normal (Normal)
[2021-08-29 20:21] LABS: Hypochromasia Present (Not Present)
[2021-08-29] MEDS ORDERED: 0.9 % Sodium Chloride 250 ML ONE (20:39)
[2021-08-29] MEDS ORDERED: Naloxone 0.4 MG/ML INJ IVP PRN (21:35)
[2021-08-29] MEDS ORDERED: Melatonin 3 MG TABLET PO PRN (21:35)
[2021-08-30] MEDS: Furosemide 20 MG/2 ML VIAL IVP SCH ×2 (00:22→07:48)
[2021-08-30 01:05] LABS: Mean Corpuscular Volume 95.8 fL (83.0-100.0); Mean Platelet Volume 10.2 fL (9.4-12.4)
[2021-08-30 01:06] LABS: Hematocrit 27.2 % (35.3-44.9); Hemoglobin 7.7 g/dL (11.5-15.4); Mean Corpuscular HGB Conc 28.3 g/dL (31.6-35.5); Mean Corpuscular Hemoglobin 27.1 pg (28.0-33.3); Platelet Count 204 K/mcL (140-400); Red Blood Count 2.84 M/mcL (3.82-4.97); Red Cell Distribution Width 15.3 % (11.5-14.5); White Blood Count 5.8 K/mcL (4.3-11.1)
[2021-08-30 01:18] LABS: Albumin 3.1 g/dL (3.5-5.7); Albumin/Globulin Ratio 1.2 (1.1-2.2); Bilirubin,Total 1.1 mg/dL (0.3-1.0); Calcium 8.9 mg/dL (8.6-10.3); Globulin 2.5 g/dL (2.4-3.5); Magnesium 2.2 mg/dL (1.6-2.6); Phosphorous 2.7 mg/dL (2.7-4.5); Potassium 4.2 mEq/L (3.5-5.1); Total Protein 5.6 g/dL (6.4-8.9)
[2021-08-30] MEDS: Pantoprazole 40 MG VIAL IVP SCH ×2 (05:48→16:54)
[2021-08-30] MEDS: clonazePAM 0.5 MG TABLET PO SCH ×2 (07:48→22:04)
[2021-08-30] MEDS: Venlafaxine XR (24 HR) 37.5 MG CAP.ER.24H PO SCH ×2 (07:48→22:04)
[2021-08-30] MEDS ORDERED: NIFEdipine XL (24 HR) 60 MG TAB.ER.24 PO SCH (09:00)
[2021-08-30] MEDS ORDERED: *HR* Dextrose 50 % in Water (Syg) 50 ML SYRINGE IVP PRN (12:28)
[2021-08-30] MEDS ORDERED: D5% in Water 1,000 ML IVC PRN (12:28)
[2021-08-30] MEDS ORDERED: Dextrose 4 GM Chewable Tablets PO PRN ×2 (12:28)
[2021-08-30] MEDS: NIFEdipine XL (24 HR) 60 MG TAB.ER.24 PO SCH (16:52)
[2021-08-30] MEDS: carvediloL 25 MG TABLET PO SCH (16:53)
[2021-08-30] MEDS: Furosemide 40 MG/4 ML VIAL IVP SCH (16:54)
[2021-08-30] MEDS: Insulin LISPRO 300 UNITS/3 ML VIAL SUBQ SCH (16:54)
[2021-08-31] MEDS: Pantoprazole 40 MG VIAL IVP SCH ×2 (05:13→18:06)
[2021-08-31] MEDS: Insulin LISPRO 300 UNITS/3 ML VIAL SUBQ SCH ×3 (07:10→18:06)
[2021-08-31] MEDS: carvediloL 25 MG TABLET PO SCH (07:37)
[2021-08-31] MEDS: clonazePAM 0.5 MG TABLET PO SCH ×2 (07:37→21:23)
[2021-08-31] MEDS: NIFEdipine XL (24 HR) 60 MG TAB.ER.24 PO SCH (07:37)
[2021-08-31] MEDS: Furosemide 40 MG/4 ML VIAL IVP SCH (07:37)
[2021-08-31] MEDS: Venlafaxine XR (24 HR) 37.5 MG CAP.ER.24H PO SCH ×2 (07:37→21:24)
[2021-08-31 08:07] LABS: Hemoglobin 7.7 g/dL (11.5-15.4); Mean Corpuscular Volume 95.8 fL (83.0-100.0); Red Cell Distribution Width 15.6 % (11.5-14.5)
[2021-08-31 08:08] LABS: Basophils % 0.6 %; Eosinophils # 0.1 K/mcL (0.0-0.6); Eosinophils % 2.2 %; Hematocrit 27.1 % (35.3-44.9); Immature Granulocytes % 1.2 % (0-4); Lymphocytes # 0.8 K/mcL (0.6-4.6); Lymphocytes % 15.7 %; Mean Corpuscular HGB Conc 28.4 g/dL (31.6-35.5); Mean Corpuscular Hemoglobin 27.2 pg (28.0-33.3); Mean Platelet Volume 9.9 fL (9.4-12.4); Monocytes # 0.4 K/mcL (0.0-1.3); Monocytes % 7.9 %; Neutrophils # 3.6 K/mcL (1.6-8.9); Platelet Count 201 K/mcL (140-400); Red Blood Count 2.83 M/mcL (3.82-4.97); Segmented Neutrophils % 72.4 %; White Blood Count 4.9 K/mcL (4.3-11.1)
[2021-08-31 08:25] LABS: Potassium 3.9 mEq/L (3.5-5.1)
[2021-08-31 08:35] LABS: Hypochromasia Present (Not Present); Platelet Estimate Normal (Normal)
[2021-08-31] MEDS: Gabapentin 300 MG CAPSULE PO SCH (10:36)
[2021-08-31] MEDS ORDERED: Iron Sucrose Complex 200 MG in 0.9 % Sodium Chloride 100 ML IVPB ONE (12:17)
[2021-08-31] MEDS ORDERED: *HR* HYDROmorphone PF 0.5 MG/0.5 ML SYRINGE IVP PRN (13:16)
[2021-08-31] MEDS ORDERED: Ondansetron 4 MG/2 ML VIAL IVP PRN (13:16)
[2021-08-31] MEDS ORDERED: Promethazine 6.25 MG in Water for inj. (sterile) 20 ML IVPB PRN (13:16)
[2021-08-31] MEDS: 0.9 % Sodium Chloride 1,000 ML IVC SCH (13:17)
[2021-08-31] MEDS ORDERED: *HR* Propofol 200 MG/20 ML VIAL IVP ONE (13:37)
[2021-08-31] MEDS ORDERED: Lidocaine -MPF 2% 5 ML VIAL ONE (13:37)
[2021-08-31] MEDS ORDERED: *HR* Rocuronium Bromide 50 MG/5 ML VIAL ONE (13:38)
[2021-08-31] MEDS ORDERED: Ondansetron 4 MG/2 ML VIAL ONE (14:17)
[2021-08-31] MEDS ORDERED: Lidocaine HCL 4 ML Topical Solution (Laryng-O-Jet Kit Sterile Pak) TP ONE (14:17)
[2021-09-01 05:45] LABS: Basophils % 0.3 %; Mean Corpuscular Volume 97.5 fL (83.0-100.0); Red Cell Distribution Width 14.6 % (11.5-14.5)
[2021-09-01 05:47] LABS: Hematocrit 26.8 % (35.3-44.9); Hemoglobin 7.5 g/dL (11.5-15.4); Immature Granulocytes % 2.1 % (0-4); Lymphocytes # 0.4 K/mcL (0.6-4.6); Lymphocytes % 11.1 %; Mean Corpuscular Hemoglobin 27.3 pg (28.0-33.3); Mean Platelet Volume 10.4 fL (9.4-12.4); Monocytes # 0.1 K/mcL (0.0-1.3); Monocytes % 3.3 %; Neutrophils # 2.8 K/mcL (1.6-8.9); Platelet Count 202 K/mcL (140-400); Red Blood Count 2.75 M/mcL (3.82-4.97); Segmented Neutrophils % 83.2 %; White Blood Count 3.3 K/mcL (4.3-11.1)
[2021-09-01 05:53] LABS: Anisocytosis 1+ (Not Present); Platelet Estimate Normal (Normal)
[2021-09-01 06:08] LABS: Calcium 8.4 mg/dL (8.6-10.3); Potassium 4.2 mEq/L (3.5-5.1)
[2021-09-01] MEDS: Pantoprazole 40 MG VIAL IVP SCH (06:43)
[2021-09-01] MEDS ORDERED: Furosemide 40 MG TABLET PO SCH (09:00)
[2021-09-01 11:13] VITALS: BP 136/56; PULSE 67; TEMP 99.2; O2SAT 94
[2021-09-01] MEDS: Insulin LISPRO 300 UNITS/3 ML VIAL SUBQ SCH ×2 (11:24→12:21)
[2021-09-01] MEDS: carvediloL 25 MG TABLET PO SCH (11:24)
[2021-09-01] MEDS: Gabapentin 300 MG CAPSULE PO SCH (11:25)
[2021-09-01] MEDS: Venlafaxine XR (24 HR) 37.5 MG CAP.ER.24H PO SCH (11:25)
[2021-09-01] MEDS: clonazePAM 0.5 MG TABLET PO SCH (11:25)
[2021-09-01] MEDS: NIFEdipine XL (24 HR) 60 MG TAB.ER.24 PO SCH (11:25)
[2021-09-01] MEDS: 0.9 % Sodium Chloride 1,000 ML IVC SCH (11:25)
== END 2021-09-01 16:15 | DRG 377 ==
LOC: EMEROOARM 18:09 → 3NENU 18:09
PROVIDERS: ADMIT Student in an Organized Health Care Education/Training Program; ATTEND Student in an Organized Health Care Education/Training Program
PROC: ENDOEBX (2021-08-31 13:00)

== ENCOUNTER 2021-09-20 04:58 | Observation (INO) ==
[2021-09-20] MEDS ORDERED: Ondansetron 4 MG/2 ML VIAL IVP ONE (05:05)
[2021-09-20] MEDS ORDERED: Acetaminophen 325 MG TABLET PO ONE (05:05)
[2021-09-20] MEDS ORDERED: 0.9 % Sodium Chloride 500 ML IVC ONE (05:10)
[2021-09-20] MEDS ORDERED: Acetaminophen 650 MG RECTAL SUPP RC ONE (05:10)
[2021-09-20 05:51] LABS: Bacteria,Urine Few per hpf (None-Few); Bilirubin,Urine Negative (Negative); Blood,Urine Moderate (Negative); Budding Yeast,Urine Moderate per hpf (None Seen); Clarity,Urine Ex.Turbid (Clear); Color,Urine Yellow (Yellow); Glucose,Urine (UA) 300 mg/dL (Normal); Ketones,Urine Negative (Negative); Leukocyte Esterase,Urine Large (Negative); Nitrite,Urine Negative (Negative); PH,Urine 6.5 pH Units (5.0-8.0); Protein,Urine 200 mg/dL (Neg-Trace); RBC,Urine 50-100 per hpf (0-3); Specific Gravity,Urine 1.011 (1.010-1.025); Transitional Epi Cells,Urine Few per hpf (None-Few); Urobilinogen,Urine Normal (Normal); WBC,Urine TNTC per hpf (0-3)
[2021-09-20 05:52] LABS: Basophils % 0.2 %; Eosinophils % 0.7 %; Immature Granulocytes % 0.9 % (0-4); Lymphocytes % 2.6 %; Red Cell Distribution Width 14.1 % (11.5-14.5)
[2021-09-20 05:53] LABS: Eosinophils # 0.1 K/mcL (0.0-0.6); Hematocrit 34.4 % (35.3-44.9); Hemoglobin 9.4 g/dL (11.5-15.4); Lymphocytes # 0.3 K/mcL (0.6-4.6); Mean Corpuscular HGB Conc 27.3 g/dL (31.6-35.5); Mean Corpuscular Hemoglobin 26.6 pg (28.0-33.3); Mean Corpuscular Volume 97.2 fL (83.0-100.0); Mean Platelet Volume 10.2 fL (9.4-12.4); Monocytes # 0.7 K/mcL (0.0-1.3); Monocytes % 6.9 %; Neutrophils # 9.1 K/mcL (1.6-8.9); Platelet Count 185 K/mcL (140-400); Red Blood Count 3.54 M/mcL (3.82-4.97); Segmented Neutrophils % 88.7 %; White Blood Count 10.3 K/mcL (4.3-11.1)
[2021-09-20 05:57] LABS: VBG HCO3 26 mEq/L (21-27); VBG PCO2 58 mmHg (41-51); VBG PH 7.26 pH Units (7.32-7.42); VBG PO2 75 mmHg (25-50)
[2021-09-20] MEDS ORDERED: Azithromycin 500 MG in 0.9 % Sodium Chloride 250 ML IVPB ONE (05:57)
[2021-09-20] MEDS ORDERED: cefTRIAXone 2,000 MG in 0.9 % Sodium Chloride 20 ML IVP ONE (05:57)
[2021-09-20 06:00] LABS: INR 1.1
[2021-09-20 06:03] LABS: Activated Partial Thrombo Time 30.4 Seconds (26.0-36.0)
[2021-09-20 06:11] LABS: BUN/Creatinine Ratio 12 (6-26); Blood Urea Nitrogen 18 mg/dL (8-23); Calcium 8.9 mg/dL (8.6-10.3); Carbon Dioxide 27 mEq/L (23-29); Chloride 105 mEq/L (98-107); Glucose 245 mg/dL (70-105); Osmolality,Calculated 296 (280-300); Potassium 4.2 mEq/L (3.5-5.1); Sodium 138 mEq/L (136-145); Troponin I < 0.03 ng/mL (< 0.04); eGFR For African Americans 38 (> 60); eGFR For Non-African Americans 32 (> 60)
[2021-09-20 06:40] LABS: Adenovirus Not Detected (Not Detect); Bordetella Pertussis Not Detected (Not Detect); Chlamydophila pneumoniae Not Detected (Not Detect); Coronavirus 229E Not Detected (Not Detect); Coronavirus HKU1 Not Detected (Not Detect); Coronavirus NL63 Not Detected (Not Detect); Coronavirus OC43 Not Detected (Not Detect); Human Metapneumovirus Not Detected (Not Detect); Human Rhinovirus/Enterovirus Not Detected (Not Detect); Influenza A Subtype 2009 H1 Not Detected (Not Detect); Influenza B Not Detected (Not Detect); Mycoplasma pneumoniae Not Detected (Not Detect); Parainfluenza Virus 1 Not Detected (Not Detect); Parainfluenza Virus 2 Not Detected (Not Detect); Parainfluenza Virus 3 Not Detected (Not Detect); Parainfluenza Virus 4 Not Detected (Not Detect); Respiratory Syncytial Virus Not Detected (Not Detect); SARS-CoV-2 Not Detected (Not Detect)
[2021-09-20 06:56] LABS: Hypochromasia Present (Not Present); Platelet Estimate Normal (Normal)
[2021-09-20] MEDS ORDERED: Melatonin 3 MG TABLET PO PRN (09:01)
[2021-09-20] MEDS ORDERED: Ondansetron 4 MG/2 ML VIAL IVP PRN (09:01)
[2021-09-20] MEDS ORDERED: Naloxone 0.4 MG/ML INJ IVP PRN (09:01)
[2021-09-20] MEDS ORDERED: Perflutren Lipid Microsphere 1.3 ML in 0.9 % Sodium Chloride 8.7 ML IVP PRN (09:04)
[2021-09-20] MEDS ORDERED: Vancomycin 1 EACH in 0.9 % Sodium Chloride 250 ML IVPB PRN (10:00)
[2021-09-20] MEDS ORDERED: Vancomycin 1,250 MG/262.5 ML IV.SOLN IVPB ONE (11:00)
[2021-09-20] MEDS ORDERED: Dextrose Gel 15 GM/37.5 ML TUBE PO PRN ×2 (14:25)
[2021-09-20] MEDS ORDERED: *HR* Dextrose 50 % in Water (Syg) 50 ML SYRINGE IVP PRN (14:25)
[2021-09-20] MEDS ORDERED: D5% in Water 1,000 ML IVC PRN (14:25)
[2021-09-20] MEDS ORDERED: Acetaminophen 325 MG TABLET PO PRN (16:14)
[2021-09-20] MEDS ORDERED: MOM Conc 10 ML UD.LIQ PO PRN (16:14)
[2021-09-20] MEDS: Insulin LISPRO 300 UNITS/3 ML VIAL SUBQ SCH ×2 (16:56→23:24)
[2021-09-20] MEDS: Cefepime HCl 2,000 MG in 0.9 % Sodium Chloride Mini Bag 100 ML IVPB SCH (16:57)
[2021-09-20] MEDS: carvediloL 25 MG TABLET PO SCH (16:57)
[2021-09-20 18:57] LABS: A.calcoaceticus-baumannii cplx Not Detected (Not Detect); Bacteroides fragilis by PCR Not Detected (Not Detect); Enterobacter cloacae Cmplx PCR Not Detected (Not Detect); Enterobacterales by PCR Not Detected (Not Detect); Enterococcus faecalis by PCR Not Detected (Not Detect); Enterococcus faecium by PCR Not Detected (Not Detect); Staph epidermidis by PCR Not Detected (Not Detect); Staph lugdunensis by PCR Not Detected (Not Detect); Staphylococcus aureus by PCR Not Detected (Not Detect); Staphylococcus by PCR Not Detected (Not Detect); Streptococcus agalactiae(B)PCR Not Detected (Not Detect); Streptococcus by PCR Not Detected (Not Detect); Streptococcus pneumoniae PCR Not Detected (Not Detect); Streptococcus pyogenes (A) PCR Not Detected (Not Detect)
[2021-09-20 18:58] LABS: Candida albicans by PCR Not Detected (Not Detect); Candida auris by PCR Not Detected (Not Detect); Candida glabrata by PCR Not Detected (Not Detect); Candida krusei by PCR Not Detected (Not Detect); Candida parapsilosis by PCR Not Detected (Not Detect); Candida tropicalis by PCR Not Detected (Not Detect); Crypto. neoformans/gattii PCR Not Detected (Not Detect); Escherichia coli by PCR DETECTED (Not Detect); Klebs. pneumoniae group by PCR Not Detected (Not Detect); Klebsiella aerogenes by PCR Not Detected (Not Detect); Klebsiella oxytoca by PCR Not Detected (Not Detect); Proteus by PCR Not Detected (Not Detect); Pseudomonas aeruginosa by PCR Not Detected (Not Detect); Salmonella species by PCR Not Detected (Not Detect); Serratia marcescens by PCR Not Detected (Not Detect); Stenotrophomonas maltophilia Not Detected (Not Detect)
[2021-09-21 03:11] LABS: Basophils % 0.4 %; Eosinophils % 0.9 %; Mean Platelet Volume 10.3 fL (9.4-12.4)
[2021-09-21 03:12] LABS: Eosinophils # 0.1 K/mcL (0.0-0.6); Hematocrit 28.5 % (35.3-44.9); Immature Granulocytes % 2.2 % (0-4); Lymphocytes # 0.8 K/mcL (0.6-4.6); Lymphocytes % 14.5 %; Mean Corpuscular HGB Conc 28.1 g/dL (31.6-35.5); Mean Corpuscular Hemoglobin 27.3 pg (28.0-33.3); Mean Corpuscular Volume 97.3 fL (83.0-100.0); Monocytes # 0.7 K/mcL (0.0-1.3); Monocytes % 12.5 %; Platelet Count 147 K/mcL (140-400); Red Blood Count 2.93 M/mcL (3.82-4.97); Segmented Neutrophils % 69.5 %; White Blood Count 5.5 K/mcL (4.3-11.1)
[2021-09-21 03:18] LABS: Neutrophils # 3.8 K/mcL (1.6-8.9)
[2021-09-21 03:24] LABS: Calcium 8.5 mg/dL (8.6-10.3); Magnesium 1.9 mg/dL (1.6-2.6); Potassium 4.4 mEq/L (3.5-5.1)
[2021-09-21 03:47] LABS: Hypochromasia Present (Not Present); Platelet Estimate Normal (Normal)
[2021-09-21] MEDS ORDERED: *HR* Enoxaparin 40 MG/0.4 ML SYRINGE SQ SCH (06:00)
[2021-09-21] MEDS: Cefepime HCl 2,000 MG in 0.9 % Sodium Chloride Mini Bag 100 ML IVPB SCH (06:10)
[2021-09-21] MEDS: Insulin LISPRO 300 UNITS/3 ML VIAL SUBQ SCH ×4 (07:46→20:52)
[2021-09-21] MEDS: Venlafaxine XR (24 HR) 37.5 MG CAP.ER.24H PO SCH (07:46)
[2021-09-21] MEDS: Gabapentin 300 MG CAPSULE PO SCH (07:46)
[2021-09-21] MEDS: Aspirin Enteric Coated 81 MG Tablet PO SCH (07:47)
[2021-09-21] MEDS: carvediloL 25 MG TABLET PO SCH ×2 (07:47→17:04)
[2021-09-21] MEDS: NIFEdipine XL (24 HR) 30 MG TAB.ER.24 PO SCH (07:47)
[2021-09-21] MEDS: Furosemide 40 MG TABLET PO SCH (07:47)
[2021-09-21] MEDS: Cyanocobalamin (B-12) 1,000 MCG/ML VIAL IM SCH (07:53)
[2021-09-22] MEDS ORDERED: Cefepime HCl 2,000 MG in 0.9 % Sodium Chloride Mini Bag 100 ML IVPB SCH (06:00)
[2021-09-22] MEDS: *HR* Enoxaparin 30 MG/0.3 ML SYRINGE SQ SCH (06:26)
[2021-09-22] MEDS ORDERED: levoFLOXacin 750 MG TABLET PO SCH (09:00)
[2021-09-22 09:26] LABS: Red Blood Count 3.16 M/mcL (3.82-4.97)
[2021-09-22 09:27] LABS: Eosinophils # 0.1 K/mcL (0.0-0.6); Hemoglobin 8.4 g/dL (11.5-15.4); Mean Corpuscular Hemoglobin 26.6 pg (28.0-33.3); Mean Corpuscular Volume 94.9 fL (83.0-100.0); Platelet Count 172 K/mcL (140-400); Red Cell Distribution Width 13.4 % (11.5-14.5); White Blood Count 4.6 K/mcL (4.3-11.1)
[2021-09-22 09:42] LABS: Calcium 9.1 mg/dL (8.6-10.3); Potassium 4.2 mEq/L (3.5-5.1)
[2021-09-22] MEDS: Gabapentin 300 MG CAPSULE PO SCH (10:13)
[2021-09-22] MEDS: carvediloL 25 MG TABLET PO SCH ×2 (10:13→17:11)
[2021-09-22] MEDS: Furosemide 40 MG TABLET PO SCH (10:13)
[2021-09-22] MEDS: Venlafaxine XR (24 HR) 37.5 MG CAP.ER.24H PO SCH (10:13)
[2021-09-22] MEDS: NIFEdipine XL (24 HR) 30 MG TAB.ER.24 PO SCH (10:13)
[2021-09-22] MEDS: Insulin LISPRO 300 UNITS/3 ML VIAL SUBQ SCH ×4 (10:13→21:11)
[2021-09-22] MEDS: Aspirin Enteric Coated 81 MG Tablet PO SCH (10:13)
[2021-09-22] MEDS: Cyanocobalamin (B-12) 1,000 MCG/ML VIAL IM SCH (10:50)
[2021-09-22] MEDS ORDERED: 0.9 % Sodium Chloride 250 ML ONE (10:59)
[2021-09-22 12:42] LABS: Hypochromasia Present (Not Present); Lymphocytes # 0.6 K/mcL (0.6-4.6); Monocytes # 0.3 K/mcL (0.0-1.3); Neutrophils # 3.6 K/mcL (1.6-8.9); Platelet Estimate Normal (Normal)
[2021-09-22 12:43] LABS: Polychromasia 1+ (Not Present); Stomatocytes 2+ (Not Present)
[2021-09-23] MEDS: *HR* Enoxaparin 30 MG/0.3 ML SYRINGE SQ SCH (05:01)
[2021-09-23 05:21] LABS: Red Cell Distribution Width 13.6 % (11.5-14.5)
[2021-09-23 05:22] LABS: Basophils % 0.4 %; Eosinophils # 0.1 K/mcL (0.0-0.6); Eosinophils % 2.3 %; Hemoglobin 8.5 g/dL (11.5-15.4); Immature Granulocytes % 2.8 % (0-4); Lymphocytes # 0.5 K/mcL (0.6-4.6); Lymphocytes % 9.9 %; Mean Corpuscular HGB Conc 28.3 g/dL (31.6-35.5); Mean Corpuscular Hemoglobin 26.6 pg (28.0-33.3); Mean Corpuscular Volume 93.8 fL (83.0-100.0); Monocytes # 0.4 K/mcL (0.0-1.3); Platelet Count 168 K/mcL (140-400); Segmented Neutrophils % 76.6 %; White Blood Count 5.3 K/mcL (4.3-11.1)
[2021-09-23 05:36] LABS: Neutrophils # 4.1 K/mcL (1.6-8.9)
[2021-09-23 05:52] LABS: Calcium 9.1 mg/dL (8.6-10.3); Magnesium 1.9 mg/dL (1.6-2.6); Phosphorous 2.2 mg/dL (2.7-4.5); Potassium 4.2 mEq/L (3.5-5.1)
[2021-09-23] MEDS: Aspirin Enteric Coated 81 MG Tablet PO SCH (07:05)
[2021-09-23] MEDS: Furosemide 40 MG TABLET PO SCH (07:05)
[2021-09-23] MEDS: Gabapentin 300 MG CAPSULE PO SCH (07:05)
[2021-09-23] MEDS: NIFEdipine XL (24 HR) 30 MG TAB.ER.24 PO SCH (07:05)
[2021-09-23] MEDS: carvediloL 25 MG TABLET PO SCH (07:06)
[2021-09-23] MEDS: Venlafaxine XR (24 HR) 37.5 MG CAP.ER.24H PO SCH (07:06)
[2021-09-23 11:07] VITALS: BP 170/69; PULSE 72; TEMP 98.1; O2SAT 99
[2021-09-23] MEDS: Insulin LISPRO 300 UNITS/3 ML VIAL SUBQ SCH ×2 (12:09→12:22)
[2021-09-24] MEDS ORDERED: levoFLOXacin 750 MG TABLET PO SCH (09:00)
[2021-10-18] MEDS ORDERED: Cyanocobalamin (B-12) 1,000 MCG/ML VIAL IM SCH (09:00)
== END 2021-09-23 14:15 ==
LOC: 3NENU 04:58 → EMEROOARM 04:58 → SUATTDRO 08:21 → 3NENU 09:21
PROVIDERS: ADMIT Hospitalist; ATTEND Internal Medicine

== ENCOUNTER 2022-02-07 09:40 | Inpatient (IN) ==
[2022-02-07 10:12] LABS: Basophils % 0.5 %; Eosinophils # 0.4 K/mcL (0.0-0.6); Eosinophils % 5.5 %; Hematocrit 31.9 % (35.3-44.9); Hemoglobin 9.3 g/dL (11.5-15.4); Immature Granulocytes % 1.9 % (0-4); Lymphocytes # 0.7 K/mcL (0.6-4.6); Lymphocytes % 11.2 %; Mean Corpuscular HGB Conc 29.2 g/dL (31.6-35.5); Mean Corpuscular Hemoglobin 29.2 pg (28.0-33.3); Mean Platelet Volume 9.7 fL (9.4-12.4); Monocytes # 0.4 K/mcL (0.0-1.3); Monocytes % 6.5 %; Neutrophils # 4.7 K/mcL (1.6-8.9); Platelet Count 162 K/mcL (140-400); Red Blood Count 3.19 M/mcL (3.82-4.97); Segmented Neutrophils % 74.4 %; White Blood Count 6.3 K/mcL (4.3-11.1)
[2022-02-07 10:25] LABS: INR 1.1; Prothrombin Time 12.8 Seconds (9.4-12.1)
[2022-02-07 10:50] LABS: BUN/Creatinine Ratio 22 (6-26); Blood Urea Nitrogen 38 mg/dL (8-23); Calcium 9.6 mg/dL (8.6-10.3); Carbon Dioxide 34 mEq/L (23-29); Chloride 102 mEq/L (98-107); Glucose 234 mg/dL (70-105); Osmolality,Calculated 307 (280-300); Potassium 4.6 mEq/L (3.5-5.1); Sodium 140 mEq/L (136-145); Troponin I < 0.03 ng/mL (< 0.04)
[2022-02-07 11:31] LABS: ABG Base Excess 5 mEq/L (-2 to 3); ABG HCO3 35 mEq/L (21-27); ABG Oxygen Saturation 96 % (95-98); ABG PCO2 79 mmHg (35-45); ABG PH 7.25 pH Units (7.32-7.45); ABG PO2 102 mmHg (85-104); ABG TCO2 37 mEq/L (20-26)
[2022-02-07] MEDS ORDERED: levoFLOXacin 750 MG/150 ML 750 MG/150 ML BAG IVPB ONE (12:28)
[2022-02-07] MEDS ORDERED: Naloxone 0.4 MG/ML INJ IVP PRN (12:48)
[2022-02-07] MEDS ORDERED: Melatonin 3 MG TABLET PO PRN (12:54)
[2022-02-07] MEDS ORDERED: Ondansetron 4 MG/2 ML VIAL IVP PRN (12:54)
[2022-02-07 13:56] LABS: Adenovirus Not Detected (Not Detect); Bordetella Pertussis Not Detected (Not Detect); Chlamydophila pneumoniae Not Detected (Not Detect); Coronavirus 229E Not Detected (Not Detect); Coronavirus HKU1 Not Detected (Not Detect); Coronavirus NL63 Not Detected (Not Detect); Coronavirus OC43 Not Detected (Not Detect); Human Metapneumovirus Not Detected (Not Detect); Influenza A Subtype 2009 H1 Not Detected (Not Detect); Influenza B Not Detected (Not Detect); Mycoplasma pneumoniae Not Detected (Not Detect); Parainfluenza Virus 1 Not Detected (Not Detect); Parainfluenza Virus 2 Not Detected (Not Detect); Parainfluenza Virus 3 Not Detected (Not Detect); Parainfluenza Virus 4 Not Detected (Not Detect); Respiratory Syncytial Virus Not Detected (Not Detect); SARS-CoV-2 Not Detected (Not Detect)
[2022-02-07 13:57] LABS: Human Rhinovirus/Enterovirus DETECTED (Not Detect)
[2022-02-07] MEDS ORDERED: Preparation H Ointment 57 GM TUBE RC PRN (14:40)
[2022-02-07] MEDS ORDERED: MOM Conc 10 ML UD.LIQ PO PRN (14:40)
[2022-02-07] MEDS: Azithromycin 250 MG TABLET PO SCH (15:33)
[2022-02-07 15:52] LABS: VBG HCO3 35 mEq/L (21-27); VBG PCO2 69 mmHg (41-51); VBG PH 7.31 pH Units (7.32-7.42); VBG PO2 160 mmHg (25-50)
[2022-02-07] MEDS: Furosemide 40 MG TABLET PO SCH (17:00)
[2022-02-07] MEDS: carvediloL 25 MG TABLET PO SCH (20:29)
[2022-02-07] MEDS: Mirtazapine 15 MG TABLET PO SCH (20:29)
[2022-02-07] MEDS: GuaiFENesin Liq 200 MG/10 ML UDC PO SCH (20:29)
[2022-02-08 05:08] LABS: Basophils % 0.2 %; Eosinophils # 0.3 K/mcL (0.0-0.6); Eosinophils % 4.4 %; Hematocrit 29.2 % (35.3-44.9); Hemoglobin 8.5 g/dL (11.5-15.4); Immature Granulocytes % 0.9 % (0-4); Lymphocytes % 18.1 %; Mean Corpuscular HGB Conc 29.1 g/dL (31.6-35.5); Mean Corpuscular Hemoglobin 29.1 pg (28.0-33.3); Mean Platelet Volume 10.1 fL (9.4-12.4); Monocytes # 0.5 K/mcL (0.0-1.3); Monocytes % 8.3 %; Neutrophils # 3.8 K/mcL (1.6-8.9); Platelet Count 159 K/mcL (140-400); Red Blood Count 2.92 M/mcL (3.82-4.97); Red Cell Distribution Width 14.1 % (11.5-14.5); Segmented Neutrophils % 68.1 %; White Blood Count 5.6 K/mcL (4.3-11.1)
[2022-02-08 05:23] LABS: Calcium 9.4 mg/dL (8.6-10.3)
[2022-02-08 05:24] LABS: % Iron Saturation 17 % (15-50); Iron 46 mcg/dL (50-170); Transferrin 188 mg/dL (203-362)
[2022-02-08 05:42] LABS: Ferritin 175 ng/mL (10-120)
[2022-02-08] MEDS: Ammonium Lactate 30 APPL/225 GM BOTTLE TP SCH ×3 (07:47→21:47)
[2022-02-08] MEDS: clonazePAM 0.5 MG TABLET PO SCH (08:54)
[2022-02-08] MEDS: Gabapentin 300 MG CAPSULE PO SCH (08:54)
[2022-02-08] MEDS: NIFEdipine XL (24 HR) 30 MG TAB.ER.24 PO SCH (08:54)
[2022-02-08] MEDS: carvediloL 25 MG TABLET PO SCH ×2 (08:55→21:45)
[2022-02-08] MEDS: Cyanocobalamin (B-12) 1,000 MCG TABLET PO SCH (08:59)
[2022-02-08] MEDS: GuaiFENesin Liq 200 MG/10 ML UDC PO SCH ×3 (08:59→21:46)
[2022-02-08] MEDS ORDERED: Furosemide 40 MG TABLET PO SCH (09:00)
[2022-02-08] MEDS ORDERED: Patient Taking Own Medication 1 EACH PO SCH ×2 (09:00)
[2022-02-08] MEDS ORDERED: cefTRIAXone 2,000 MG in 0.9 % Sodium Chloride 20 ML IVP SCH (09:00)
[2022-02-08] MEDS ORDERED: Aspirin Enteric Coated 81 MG Tablet PO SCH (09:00)
[2022-02-08] MEDS: Acetaminophen 325 MG TABLET PO PRN (13:04)
[2022-02-08] MEDS ORDERED: Iron Sucrose Complex 200 MG in 0.9 % Sodium Chloride 100 ML IVPB ONE (13:30)
[2022-02-08] MEDS: Azithromycin 250 MG TABLET PO SCH (13:54)
[2022-02-08] MEDS: Furosemide 40 MG TABLET PO SCH (17:08)
[2022-02-08] MEDS: Mirtazapine 15 MG TABLET PO SCH (21:46)
[2022-02-09 02:10] LABS: Calcium 9.3 mg/dL (8.6-10.3); Potassium 3.9 mEq/L (3.5-5.1)
[2022-02-09 02:18] LABS: Basophils % 0.2 %; Eosinophils # 0.2 K/mcL (0.0-0.6); Eosinophils % 4.5 %; Hematocrit 29.2 % (35.3-44.9); Hemoglobin 8.6 g/dL (11.5-15.4); Immature Granulocytes % 0.9 % (0-4); Lymphocytes # 0.9 K/mcL (0.6-4.6); Lymphocytes % 17.3 %; Mean Corpuscular HGB Conc 29.5 g/dL (31.6-35.5); Mean Corpuscular Volume 101.7 fL (83.0-100.0); Mean Platelet Volume 10.3 fL (9.4-12.4); Monocytes # 0.5 K/mcL (0.0-1.3); Monocytes % 8.9 %; Neutrophils # 3.7 K/mcL (1.6-8.9); Platelet Count 160 K/mcL (140-400); Red Blood Count 2.87 M/mcL (3.82-4.97); Segmented Neutrophils % 68.2 %; White Blood Count 5.4 K/mcL (4.3-11.1)
[2022-02-09] MEDS: Gabapentin 300 MG CAPSULE PO SCH ×2 (09:03→10:45)
[2022-02-09] MEDS: NIFEdipine XL (24 HR) 30 MG TAB.ER.24 PO SCH (09:03)
[2022-02-09] MEDS: carvediloL 25 MG TABLET PO SCH ×2 (09:03→19:38)
[2022-02-09] MEDS: Lactobacillus 1 EACH CAP.SPRINK PO SCH (09:03)
[2022-02-09] MEDS: Cyanocobalamin (B-12) 1,000 MCG TABLET PO SCH (09:03)
[2022-02-09] MEDS: Aspirin Enteric Coated 81 MG Tablet PO SCH (09:03)
[2022-02-09] MEDS: clonazePAM 0.5 MG TABLET PO SCH (09:04)
[2022-02-09] MEDS: GuaiFENesin Liq 200 MG/10 ML UDC PO SCH ×3 (09:04→19:38)
[2022-02-09] MEDS: Ammonium Lactate 30 APPL/225 GM BOTTLE TP SCH ×2 (09:07→19:39)
[2022-02-09] MEDS: Acetaminophen 325 MG TABLET PO PRN (11:23)
[2022-02-09] MEDS: Azithromycin 250 MG TABLET PO SCH (14:03)
[2022-02-09] MEDS: Mirtazapine 15 MG TABLET PO SCH (19:38)
[2022-02-10] MEDS: GuaiFENesin Liq 200 MG/10 ML UDC PO SCH ×3 (08:03→19:43)
[2022-02-10] MEDS: clonazePAM 0.5 MG TABLET PO SCH (08:04)
[2022-02-10] MEDS: Cyanocobalamin (B-12) 1,000 MCG TABLET PO SCH (08:04)
[2022-02-10] MEDS: NIFEdipine XL (24 HR) 30 MG TAB.ER.24 PO SCH (08:04)
[2022-02-10] MEDS: Gabapentin 300 MG CAPSULE PO SCH (08:04)
[2022-02-10] MEDS: carvediloL 25 MG TABLET PO SCH ×2 (08:04→19:43)
[2022-02-10] MEDS: Lactobacillus 1 EACH CAP.SPRINK PO SCH (08:05)
[2022-02-10] MEDS: Ammonium Lactate 30 APPL/225 GM BOTTLE TP SCH ×2 (08:05→19:44)
[2022-02-10] MEDS: Aspirin Enteric Coated 81 MG Tablet PO SCH (08:05)
[2022-02-10 13:15] LABS: Basophils % 0.4 %; Eosinophils # 0.2 K/mcL (0.0-0.6); Eosinophils % 3.3 %; Hematocrit 29.9 % (35.3-44.9); Hemoglobin 8.9 g/dL (11.5-15.4); Immature Granulocytes % 1.3 % (0-4); Lymphocytes # 0.8 K/mcL (0.6-4.6); Lymphocytes % 14.8 %; Mean Corpuscular HGB Conc 29.8 g/dL (31.6-35.5); Mean Corpuscular Hemoglobin 29.8 pg (28.0-33.3); Monocytes # 0.4 K/mcL (0.0-1.3); Monocytes % 6.5 %; Platelet Count 157 K/mcL (140-400); Red Blood Count 2.99 M/mcL (3.82-4.97); Red Cell Distribution Width 13.8 % (11.5-14.5); Segmented Neutrophils % 73.7 %; White Blood Count 5.4 K/mcL (4.3-11.1)
[2022-02-10 13:32] LABS: Potassium 4.4 mEq/L (3.5-5.1)
[2022-02-10] MEDS: Azithromycin 250 MG TABLET PO SCH (14:03)
[2022-02-10] MEDS: Furosemide 40 MG TABLET PO SCH (18:38)
[2022-02-10] MEDS: Mirtazapine 15 MG TABLET PO SCH (19:43)
[2022-02-11] MEDS: Gabapentin 300 MG CAPSULE PO SCH (09:29)
[2022-02-11] MEDS: Cyanocobalamin (B-12) 1,000 MCG TABLET PO SCH (09:29)
[2022-02-11] MEDS: carvediloL 25 MG TABLET PO SCH ×2 (09:29→19:37)
[2022-02-11] MEDS: Lactobacillus 1 EACH CAP.SPRINK PO SCH (09:29)
[2022-02-11] MEDS: NIFEdipine XL (24 HR) 30 MG TAB.ER.24 PO SCH (09:29)
[2022-02-11] MEDS: Aspirin Enteric Coated 81 MG Tablet PO SCH (09:30)
[2022-02-11] MEDS: clonazePAM 0.5 MG TABLET PO SCH (09:30)
[2022-02-11] MEDS: GuaiFENesin Liq 200 MG/10 ML UDC PO SCH ×3 (09:31→19:37)
[2022-02-11] MEDS: Ammonium Lactate 30 APPL/225 GM BOTTLE TP SCH ×2 (11:07→19:37)
[2022-02-11] MEDS ORDERED: Benzonatate 100 MG CAPSULE PO PRN (11:36)
[2022-02-11] MEDS: Fluticasone Propionate Nasal 50 MCG/SPRAY BOTTLE NS SCH (13:27)
[2022-02-11] MEDS: Azithromycin 250 MG TABLET PO SCH (14:48)
[2022-02-11] MEDS: Furosemide 40 MG TABLET PO SCH (17:43)
[2022-02-11] MEDS: Mirtazapine 15 MG TABLET PO SCH (19:37)
[2022-02-12 07:21] VITALS: BP 166/47
[2022-02-12] MEDS: carvediloL 25 MG TABLET PO SCH (08:19)
[2022-02-12] MEDS: clonazePAM 0.5 MG TABLET PO SCH (08:19)
[2022-02-12] MEDS: Cyanocobalamin (B-12) 1,000 MCG TABLET PO SCH (08:19)
[2022-02-12] MEDS: Lactobacillus 1 EACH CAP.SPRINK PO SCH (08:19)
[2022-02-12] MEDS: Gabapentin 300 MG CAPSULE PO SCH (08:19)
[2022-02-12] MEDS: NIFEdipine XL (24 HR) 30 MG TAB.ER.24 PO SCH (08:19)
[2022-02-12] MEDS: Fluticasone Propionate Nasal 50 MCG/SPRAY BOTTLE NS SCH (08:20)
[2022-02-12] MEDS: Aspirin Enteric Coated 81 MG Tablet PO SCH (08:20)
[2022-02-12] MEDS: GuaiFENesin Liq 200 MG/10 ML UDC PO SCH (08:24)
[2022-02-12] MEDS: Ammonium Lactate 30 APPL/225 GM BOTTLE TP SCH (08:24)
[2022-02-12 11:20] LABS: Influenza A PCR Negative (Negative); Influenza B PCR Negative (Negative); Resp. Syncytial Virus PCR Negative (Negative); SARS-CoV-2 by PCR (In House) Negative (Negative)
[2022-02-12 11:36] VITALS: PULSE 68; TEMP 98.1; O2SAT 96
[2022-02-12 11:44] LABS: Hematocrit 30.8 % (35.3-44.9); Hemoglobin 9.1 g/dL (11.5-15.4); Mean Corpuscular HGB Conc 29.5 g/dL (31.6-35.5); Mean Corpuscular Hemoglobin 29.4 pg (28.0-33.3); Mean Corpuscular Volume 99.7 fL (83.0-100.0); Mean Platelet Volume 9.6 fL (9.4-12.4); Platelet Count 135 K/mcL (140-400); Red Blood Count 3.09 M/mcL (3.82-4.97); Red Cell Distribution Width 13.8 % (11.5-14.5)
[2022-02-12 12:08] LABS: Calcium 9.2 mg/dL (8.6-10.3); Potassium 4.5 mEq/L (3.5-5.1)
== END 2022-02-12 12:47 | DRG 189 ==
LOC: EMEROOARM 09:40 → 2NENU 09:40
PROVIDERS: ADMIT Internal Medicine; ATTEND Internal Medicine